=== PATIENT | female | born 1945 | race Caucasian/White ===

== ENCOUNTER 2020-12-05 06:43 | Outpatient (REF) | payer MEDICARE, SELFPAY ==
[2020-12-05 11:21] LABS: MANUAL DIFF FLAG NO
[2020-12-05 11:31] LABS: Basophils Percent Auto 0.6 % (0-2); Eosinophils Absolute Auto 0.2 X10*3/uL (0.0-0.4); Eosinophils Percent Auto 4.3 % (0-4); Hemoglobin 12.6 g/dl (12.0-16.0); Lymphocytes Absolute Auto 1.5 X10*3/uL (1.2-4.9); Lymphocytes Percent Auto 30.6 % (20-40); Mean Corpuscular HGB Conc 33.2 g/dl (31.0-35.0); Mean Corpuscular Hemoglobin 32.1 pg (27.0-33.0); Mean Corpuscular Volume 96.9 fL (80-98); Mean Platelet Volume 10.7 fL (9.4-12.3); Monocytes Absolute Auto 0.3 X10*3/uL (0.1-1.2); Monocytes Percent Auto 6.9 % (2-11); Neutrophils Absolute Auto 2.8 X10*3/uL (2.0-8.3); Neutrophils Percent Auto 57.6 % (45-73); Platelet Count 304 X10*3/uL (160-400); Red Blood Count 3.92 X10*6/uL (4.20-5.50); Red Cell Distribution Width 12.7 % (11.0-16.0); White Blood Count 4.9 X10*3/uL (4.8-10.8)
[2020-12-05 12:03] LABS: Alanine Aminotransferase 12 U/L (0-31); Albumin Level 4.3 g/dL (3.5-5.0); Alkaline Phosphatase 68 U/L (39-117); Anion Gap 11 (12-20); Aspartate Amino Transferase 18 U/L (5-31); Bilirubin Direct 0.2 mg/dL (0.0-0.5); Bilirubin Total 0.5 mg/dL (0.0-1.0); Blood Urea Nitrogen 15 mg/dL (9-16); Calcium 8.8 mg/dL (8.4-10.2); Carbon Dioxide 29 mmol/L (22-29); Chloride 106 mmol/L (96-108); Cholesterol 162 mg/dL; Estimated Glomerular Filt Rate > 60; Glucose Fasting 82 mg/dL (60-99); HDL Cholesterol 57 mg/dL; LDL Cholesterol Calculated 87 mg/dl; Potassium 4.5 mmol/L (3.3-5.1); Sodium 141 mmol/L (135-145); Total Protein 6.5 g/dL (6.5-8.0); Triglycerides 90 mg/dL
[2020-12-05 12:25] LABS: TSH reflex Free T4 0.49 uIU/mL (0.32-4.0)
== END 2020-12-05 06:44 | disposition home or self-care (01) ==
LOC: HO.HMGCLDS 06:43
PROVIDERS: PCP Internal Medicine; Visit Provider Internal Medicine
DX: E78.9 Disorder of lipoprotein metabolism, unspecified (principal); E03.8 Other specified hypothyroidism; E55.9 Vitamin D deficiency, unspecified; G47.9 Sleep disorder, unspecified
CPT/HCPCS: 36415; 80048; 80061; 80076; 84443; 85025

== ENCOUNTER 2021-06-15 07:24 | Outpatient (REF) | payer MEDICARE, SELFPAY ==
[2021-06-15 12:02] LABS: Alanine Aminotransferase 10 U/L (0-31); Albumin Level 4.1 g/dL (3.5-5.0); Alkaline Phosphatase 61 U/L (39-117); Anion Gap 14 (12-20); Aspartate Amino Transferase 19 U/L (5-31); Bilirubin Total 0.6 mg/dL (0.0-1.0); Blood Urea Nitrogen 11 mg/dL (9-16); Carbon Dioxide 26 mmol/L (22-29); Chloride 109 mmol/L (96-108); Cholesterol 148 mg/dL; Estimated Glomerular Filt Rate > 60; Glucose Fasting 83 mg/dL (60-99); HDL Cholesterol 62 mg/dL; LDL Cholesterol Calculated 75 mg/dl; Potassium 4.7 mmol/L (3.3-5.1); Sodium 144 mmol/L (135-145); Triglycerides 58 mg/dL
[2021-06-15 12:11] LABS: TSH reflex Free T4 0.36 uIU/mL (0.32-4.0)
== END 2021-06-15 07:25 | disposition home or self-care (01) ==
LOC: HO.HMGCLDS 07:24
PROVIDERS: PCP Internal Medicine; Visit Provider Internal Medicine
DX: E03.8 Other specified hypothyroidism (principal); E78.9 Disorder of lipoprotein metabolism, unspecified; G47.9 Sleep disorder, unspecified
CPT/HCPCS: 36415; 80053; 80061; 84443

== ENCOUNTER 2021-07-01 08:12 | Outpatient (REF) | payer MEDICARE, SELFPAY ==
--- NOTE | ~2021-07-01 | MM_ITS ---
EXAMINATION: MM SCREENING DIGITAL BREAST TOMOSYNTHESIS, BILATERAL CLINICAL INFORMATION: Screening. Asymptomatic. The lifetime risk of breast cancer based on the Tyrer-Cuzick Model is 2%. COMPARISON: Mammography: 08/08/2015 TECHNIQUE: Digital breast tomosynthesis is performed in both the craniocaudal and mediolateral oblique views along with computer-aided detection (CAD). Synthesized 2D images are generated from the tomosynthesis. FINDINGS: There are scattered areas of fibroglandular density (ACR BI-RADS breast composition Category b). There are no significant masses, abnormal calcifications, or other abnormalities. The axilla and skin contours are unremarkable. MM/MM tomosynthesis screening BI IMPRESSION: No mammographic evidence of malignancy. ASSESSMENT: BI-RADS 1: Negative RECOMMENDATION: Routine annual mammography screening. This patient's information was entered into a reminder system with a target due date for their next mammogram.
== END 2021-07-01 08:13 | disposition home or self-care (01) ==
LOC: HO.MAMMO 08:12
PROVIDERS: Visit Provider Internal Medicine
DX: Z12.31 Encounter for screening mammogram for malignant neoplasm of breast (principal)
CPT/HCPCS: 77063; 77067

== ENCOUNTER 2021-12-18 07:56 | Outpatient (REF) | payer MEDICARE, SELFPAY ==
[2021-12-18 11:23] LABS: MANUAL DIFF FLAG NO
[2021-12-18 11:35] LABS: Basophils Percent Auto 0.8 % (0-2); Eosinophils Absolute Auto 0.2 X10*3/uL (0.0-0.4); Eosinophils Percent Auto 4.7 % (0-4); Hematocrit 37.5 % (37.0-47.0); Hemoglobin 12.3 g/dl (12.0-16.0); Imm Gran Abs Auto 0.01 X10*3/uL (0.00-0.03); Imm Gran Pct Auto 0.2 % (0.0-0.4); Lymphocytes Absolute Auto 1.7 X10*3/uL (1.2-4.9); Mean Corpuscular HGB Conc 32.8 g/dl (31.0-35.0); Mean Corpuscular Volume 97.7 fL (80.0-98.0); Mean Platelet Volume 10.5 fL (9.4-12.3); Monocytes Absolute Auto 0.4 X10*3/uL (0.1-1.2); Monocytes Percent Auto 7.6 % (2-11); Neutrophils Absolute Auto 2.8 x10*3/uL (2.0-8.3); Neutrophils Percent Auto 53.7 % (45-73); Platelet Count 291 X10*3/uL (160-400); Red Blood Count 3.84 X10*6/uL (4.20-5.50); Red Cell Distribution Width 13.1 % (11.0-16.0); White Blood Count 5.1 X10*3/uL (4.8-10.8)
[2021-12-18 12:08] LABS: Alanine Aminotransferase 15 U/L (0-31); Albumin Level 4.2 g/dL (3.5-5.0); Alkaline Phosphatase 63 U/L (39-117); Anion Gap 13 (12-20); Aspartate Amino Transferase 19 U/L (5-31); Bilirubin Total 0.4 mg/dL (0.0-1.0); Blood Urea Nitrogen 18 mg/dL (9-16); Calcium 9.2 mg/dL (8.4-10.2); Carbon Dioxide 28 mmol/L (22-29); Chloride 106 mmol/L (96-108); Cholesterol 160 mg/dL; Estimated Glomerular Filt Rate 54; Glucose Fasting 84 mg/dL (60-99); HDL Cholesterol 61 mg/dL; LDL Cholesterol Calculated 81 mg/dl; Potassium 4.3 mmol/L (3.3-5.1); Sodium 143 mmol/L (135-145); Total Protein 6.3 g/dL (6.5-8.0); Triglycerides 92 mg/dL
[2021-12-18 12:10] LABS: TSH reflex Free T4 3.94 uIU/mL (0.32-4.0)
== END 2021-12-18 07:57 | disposition home or self-care (01) ==
LOC: HO.HMGCLDS 07:56
PROVIDERS: Visit Provider Internal Medicine
DX: E03.8 Other specified hypothyroidism (principal); E78.9 Disorder of lipoprotein metabolism, unspecified; G47.9 Sleep disorder, unspecified
CPT/HCPCS: 36415; 80053; 80061; 84443; 85025

== ENCOUNTER 2022-04-06 07:37 | Outpatient (REF) | payer MEDICARE, SELFPAY ==
[2022-04-06 12:36] LABS: Alanine Aminotransferase 12 U/L (0-31); Albumin Level 4.3 g/dL (3.5-5.0); Alkaline Phosphatase 65 U/L (39-117); Anion Gap 13 (12-20); Aspartate Amino Transferase 17 U/L (5-31); Bilirubin Total 0.5 mg/dL (0.0-1.0); Blood Urea Nitrogen 21 mg/dL (9-16); Calcium 8.8 mg/dL (8.4-10.2); Carbon Dioxide 26 mmol/L (22-29); Chloride 108 mmol/L (96-108); Estimated Glomerular Filt Rate > 60; Glucose Random 91 mg/dL (60-115); Potassium 4.6 mmol/L (3.3-5.1); Sodium 142 mmol/L (135-145); Total Protein 6.3 g/dL (6.5-8.0)
[2022-04-06 16:53] LABS: Appearance Urine CLEAR; Color Urine YELLOW; Glucose Urine UA NEG (NEG); Leukocyte Esterase Urine NEG (NEG); Nitrite Urine NEG (NEG); PH 5.5 (5.0-8.0); Urine Blood NEG (NEG); Urine Ketones NEG (NEG); Urine Protein NEG (NEG-TRACE)
== END 2022-04-06 07:38 | disposition home or self-care (01) ==
LOC: HO.HMGCLDS 07:37
PROVIDERS: PCP Internal Medicine; Visit Provider Internal Medicine
DX: E78.9 Disorder of lipoprotein metabolism, unspecified (principal); G47.9 Sleep disorder, unspecified; K21.9 Gastro-esophageal reflux disease without esophagitis; R94.4 Abnormal results of kidney function studies; R35.1 Nocturia; E03.8 Other specified hypothyroidism
CPT/HCPCS: 36415; 80053; 81003

== ENCOUNTER 2022-07-02 09:00 | Outpatient (REF) | payer MEDICARE, SELFPAY ==
--- NOTE | ~2022-07-02 | MM_ITS ---
EXAMINATION: MM SCREENING DIGITAL BREAST TOMOSYNTHESIS, BILATERAL CLINICAL INFORMATION: Screening. Asymptomatic. The lifetime risk of breast cancer based on the Tyrer-Cuzick Model is 2%. COMPARISON: Mammography: 07/01/2021, 08/08/2015 TECHNIQUE: Digital breast tomosynthesis is performed in both the craniocaudal and mediolateral oblique views along with computer-aided detection (CAD). Synthesized 2D images are generated from the tomosynthesis. FINDINGS: The breasts are almost entirely fatty (ACR BI-RADS breast composition Category a). There are no significant masses, abnormal calcifications, or other abnormalities. Background stromal markings are stable. No developing density or architectural abnormality. The axilla are unremarkable. MM/MM tomosynthesis screening BI IMPRESSION: No mammographic evidence of malignancy. ASSESSMENT: BI-RADS 1: Negative RECOMMENDATION: Routine annual mammography screening. This patient's information was entered into a reminder system with a target due date for their next mammogram.
== END 2022-07-02 09:01 | disposition home or self-care (01) ==
LOC: HO.MAMMO 09:00
PROVIDERS: PCP Internal Medicine; Visit Provider Internal Medicine
DX: Z12.31 Encounter for screening mammogram for malignant neoplasm of breast (principal)
CPT/HCPCS: 77063; 77067

== ENCOUNTER 2023-01-17 08:21 | Outpatient (REF) | payer MEDICARE, SELFPAY ==
--- NOTE | ~2023-01-17 | XR_ITS ---
EXAMINATION: XR LUMBOSACRAL SPINE CLINICAL INFORMATION: Anesthesia of skin COMPARISON: Previous x-ray October 2019 TECHNIQUE: Three views of the lumbosacral spine. FINDINGS: There is grade 1 anterior subluxation of L5 with respect to S1. This is similar to previous exam. Bone alignment is otherwise normal. Multilevel degenerative disc disease. Spondylosis at L1-L2. Multilevel lower lumbar spine facet arthritis. No fracture or dislocation. Atherosclerotic disease. Right hip replacement. 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 XR/XR lumbar spine 2-3V IMPRESSION: Stable grade 1 anterior subluxation of L5 with respect to S1. Multilevel degenerative changes.
[2023-01-17 11:27] LABS: MANUAL DIFF FLAG NO
[2023-01-17 11:44] LABS: Basophils Percent Auto 0.5 % (0-2); Eosinophils Absolute Auto 0.2 X10*3/uL (0.0-0.4); Eosinophils Percent Auto 3.8 % (0-4); Hematocrit 37.6 % (37.0-47.0); Hemoglobin 12.1 g/dl (12.0-16.0); Imm Gran Abs Auto 0.01 X10*3/uL (0.00-0.03); Imm Gran Pct Auto 0.2 % (0.0-0.4); Lymphocytes Absolute Auto 1.8 X10*3/uL (1.2-4.9); Lymphocytes Percent Auto 32.7 % (20-40); Mean Corpuscular HGB Conc 32.2 g/dl (31.0-35.0); Mean Corpuscular Volume 96.4 fL (80.0-98.0); Mean Platelet Volume 10.3 fL (9.4-12.3); Monocytes Absolute Auto 0.4 X10*3/uL (0.1-1.2); Monocytes Percent Auto 7.1 % (2-11); Neutrophils Percent Auto 55.7 % (45-73); Platelet Count 296 X10*3/uL (160-400); Red Cell Distribution Width 13.9 % (11.0-16.0); White Blood Count 5.5 X10*3/uL (4.8-10.8)
[2023-01-17 12:08] LABS: Alanine Aminotransferase 11 U/L (0-31); Albumin Level 4.2 g/dL (3.5-5.0); Alkaline Phosphatase 72 U/L (39-117); Anion Gap 10 (12-20); Aspartate Amino Transferase 19 U/L (5-31); Bilirubin Total 0.5 mg/dL (0.0-1.0); Blood Urea Nitrogen 18 mg/dL (9-16); Calcium 9.1 mg/dL (8.4-10.2); Carbon Dioxide 32 mmol/L (22-29); Chloride 107 mmol/L (96-108); Cholesterol 193 mg/dL; Estimated Glomerular Filt Rate > 60; Glucose Fasting 82 mg/dL (60-99); HDL Cholesterol 69 mg/dL; LDL Cholesterol Calculated 109 mg/dl; Potassium 4.7 mmol/L (3.3-5.1); Sodium 144 mmol/L (135-145); Total Protein 6.1 g/dL (6.5-8.0); Triglycerides 75 mg/dL
[2023-01-17 12:27] LABS: TSH reflex Free T4 3.46 uIU/mL (0.32-4.0)
== END 2023-01-17 08:22 | disposition home or self-care (01) ==
LOC: HO.HMGCX 08:21
PROVIDERS: PCP Internal Medicine; Visit Provider Internal Medicine
DX: R20.0 Anesthesia of skin (principal); R20.2 Paresthesia of skin; R29.898 Other symptoms and signs involving the musculoskeletal system; E78.9 Disorder of lipoprotein metabolism, unspecified; E03.8 Other specified hypothyroidism; G47.9 Sleep disorder, unspecified; K21.9 Gastro-esophageal reflux disease without esophagitis; F41.0 Panic disorder [episodic paroxysmal anxiety]
CPT/HCPCS: 36415; 72100; 80053; 80061; 84443; 85025

== ENCOUNTER 2023-04-19 09:11 | Outpatient (AMB) | payer MEDICARE, SELFPAY ==
--- NOTE | 2023-04-19 09:14 | MHC.PC.OV ---
Vital Signs 04/19/23 09:15 04/19/23 09:21 Height 5 ft 3 in Weight 163 lb 4 oz BMI 28.9 BP 120/58 L 118/68 Blood Pressure Location Rt brachial Rt brachial Position Sitting Sitting Pulse 76 Pulse Source Pulse Oximeter Pulse Oximetry (%) 99 Oxygen Delivery Method Room Air Intake Visit Reasons: 3m follow up Allergies fluoxetine Adverse Reaction (Severe, Verified 04/19/23 09:17) Agitated ancef Adverse Reaction (Uncoded 10/12/22 08:25) Anxiety Medication List - Last Reconciled 04/19/23 by Terra Becerra MD aspirin 81 mg PO DAILY gabapentin 100 mg PO BEDTIME levothyroxine 112 mcg PO DAILY lorazepam 0.5 mg PO DAILY PRN 30 days pantoprazole 40 mg PO DAILY pravastatin 20 mg PO BEDTIME Tobacco use date assessed: 04/19/23 Fall risk assessment: No Falls in past year Last assessed Fall Risk: 04/19/23 Dental Screening Dental Screen Date: 04/19/23 Did you have a dental visit in the last 12 months?: Yes Did you have a dental problem in the last 6 months where you did not have access to dental care?: No Was dental information given to patient?: No HPI 3m follow up HPI Details Patient is a 77-year-old female came in today for her regular follow-up appointment Patient had MRI of her spine ordered by a different provider in January which showed destructive lesions in her spinal cord We forward the report to her oncologist's she will be having a PET scan of this month with Oncology appointment on 06 of May. Patient have a history of lymphoma, she tells me that when she was treated for lymphoma she knew that it will come back. Currently struggling with anxiety patient have a history of panic disorder she is on lorazepam 0.5 mg daily however she likes to avoid it if possible. She tells me that at 1 point she was on lorazepam 2 mg twice a day in the past. Patient is aware of side effects like , this medication has a risk of being habit forming, slowing of relfexes, dizziness, as well as may cause memory problems She is also on pantoprazole 40 mg as needed for GERD. Continue levothyroxine 112 mcg for hypothyroidism And pravastatin 20 mg for lipid control Follow-up 3 months [facility] Medical History Abnormal colonoscopy Anxiety and depression Follicular lymphoma History of lymphoma Hx of Kuldeep thyroiditis Hypercholesteremia Family History Paternal Aunt Breast cancer Social History Housing: House Alcohol intake: never Patient Tobacco Use Status: Former Tobacco user (quit 7 years ) Tobacco use type: Cigarette Years Smoked: 25 years e-Cigarette/Vaping Use: Never Used Current occupational status: retired Cognitive needs: No Hearing needs: No Vision needs: Yes Questionnaire Thrive Questionnaire Date Thrive assessed: 01/11/23 AUDIT C Alcohol Use Questionnaire (AUDIT-C) 1. How often do you have a drink containing alcohol?: Never 3. How often do you have six or more drinks on one occasion?: Never Total Score: 0 Score Reviewed/Action Taken: Yes CAROL-7 AMB Questionnaire CAROL-7 Date CAROL - 7 assessed: 01/11/23 Source: Developed by Drs. Derick Blood, Denice Murillo, Heber Patino and colleagues, with an educational jeffrey from [employer]. Review of Systems Const Denies chills and Denies fever(s) ENT Denies epistaxis and Denies nasal discharge Card Denies chest pain Resp Denies chest congestion, Denies cough and Denies hemoptysis GI Denies diarrhea and Denies nausea Skin/Breast Denies rash Neuro Reports no additional complaints Psych Reports no additional complaints Endo Reports no additional complaints Physical exam (Primary Care) Vital Signs: Last Vital Signs Pulse 76 04/19/23 09:15 BP 118/68 04/19/23 09:21 Pulse Ox 99 04/19/23 09:15 Oxygen Delivery Method Room Air 04/19/23 09:15 Tobacco/Smoking Status: Tobacco use Status Tobacco use date assessed 04/19/23 04/19/23 09:18 Patient Tobacco Use Status Former Tobacco user (quit 7 04/19/23 09:18 years ) Tobacco use type Cigarette 04/19/23 09:18 e-Cigarette/Vaping Use Never Used 04/19/23 09:18 Thrive Assessment: Date of Thrive Assessment Date Thrive assessed 01/11/23 04/19/23 09:18 Const General: cooperative, comfortable and no acute distress Orientation/consciousness: patient oriented x3 HENMT Head: Yes normocephalic Eyes General: appearance normal, both eyes and all related structures Neck Neck: Yes supple Resp Effort & Inspection: normal respiratory effort, no cough and no stridor Cardio Rhythm: regular rhythm Heart sounds: S1 normal heart sound present and S2 normal heart sound present Skin General skin exam: turgor normal Neuro General: patient oriented x3, tone normal and moves all extremities Extrem Right lower extremity: no edema Left lower extremity: no edema Assessment and Plan Assessment & Plan (1) Anxiety, generalized: Comment: Patient is aware of side effects like , this medication has a risk of being habit forming, slowing of relfexes, dizziness, and its controlled in nature, will need 3 M visit Code(s): F41.1 - Generalized anxiety disorder (2) Other specified hypothyroidism: Code(s): E03.8 - Other specified hypothyroidism (3) Difficulty sleeping: Code(s): G47.9 - Sleep disorder, unspecified (4) Chronic GERD: Code(s): K21.9 - Gastro-esophageal reflux disease without esophagitis (5) Lipid disorder: Code(s): E78.9 - Disorder of lipoprotein metabolism, unspecified (6) Obsessive compulsive disorder: Code(s): F42.9 - Obsessive-compulsive disorder, unspecified (7) Panic disorder: Code(s): F41.0 - Panic disorder [episodic paroxysmal anxiety] (8) History of lymphoma: Code(s): Z85.79 - Personal history of other malignant neoplasms of lymphoid, hematopoietic and related tissues (9) Chronic lumbar pain: Code(s): M54.5 - Low back pain; G89.29 - Other chronic pain Plan Patient is a 77-year-old female came in today for her regular follow-up appointment Patient had MRI of her spine ordered by a different provider in January which showed destructive lesions in her spinal cord We forward the report to her oncologist's she will be having a PET scan of this month with Oncology appointment on 06 of May. Patient have a history of lymphoma, she tells me that when she was treated for lymphoma she knew that it will come back. Currently struggling with anxiety patient have a history of panic disorder she is on lorazepam 0.5 mg daily however she likes to avoid it if possible. She tells me that at 1 point she was on lorazepam 2 mg twice a day in the past. Patient is aware of side effects like , this medication has a risk of being habit forming, slowing of relfexes, dizziness, as well as may cause memory problems She is also on pantoprazole 40 mg as needed for GERD. Continue levothyroxine 112 mcg for hypothyroidism And pravastatin 20 mg for lipid control Follow-up 3 months Medications: Refilled lorazepam 0.5 mg PO DAILY 30 days PRN 30 tabs 2RF anxiety Coding Level of Care Code Est Pt Level 4 (07465) Diagnoses Anxiety, generalized F41.1 Other specified hypothyroidism E03.8 Difficulty sleeping G47.9 Chronic GERD K21.9 Lipid disorder E78.9 Obsessive compulsive disorder F42.9 Panic disorder F41.0 History of lymphoma Z85.79 Chronic lumbar pain M54.5; G89.29
[2023-04-19 09:15] VITALS: BP 120/58; PULSE 76; O2SAT 99; BMI 28.9
[2023-04-19 09:21] VITALS: BP 118/68
== END 2023-04-19 09:44 | disposition home or self-care (01) ==
PROVIDERS: Visit Provider Internal Medicine
DX: E03.8 Other specified hypothyroidism (principal); Z85.79 Personal history of other malignant neoplasms of lymphoid, hematopoietic and related tissues; K21.9 Gastro-esophageal reflux disease without esophagitis; F41.1 Generalized anxiety disorder; G47.9 Sleep disorder, unspecified; E78.9 Disorder of lipoprotein metabolism, unspecified; F42.9 Obsessive-compulsive disorder, unspecified; F41.0 Panic disorder [episodic paroxysmal anxiety]; M54.5 Low back pain; G89.29 Other chronic pain
CPT/HCPCS: 99214

== ENCOUNTER 2023-07-20 09:53 | Outpatient (AMB) | payer MEDICARE, SELFPAY ==
[2023-07-20 09:59] VITALS: BP 116/62; PULSE 70; O2SAT 94; BMI 28.9
--- NOTE | 2023-07-20 09:59 | A.OFFPC_ITS ---
Vital Signs 07/20/23 09:59 Height 5 ft 3 in Weight 163 lb 4 oz BMI 28.9 BP 116/62 Blood Pressure Location Rt brachial Position Sitting Pulse 70 Pulse Source Pulse Oximeter Pulse Oximetry (%) 94 Oxygen Delivery Method Room Air Intake Visit Reasons: 3 Month follow up Allergies fluoxetine Adverse Reaction (Severe, Verified 07/20/23 10:01) Agitated ancef Adverse Reaction (Uncoded 10/12/22 08:25) Anxiety Medication List - Last Reconciled 07/20/23 by Terra Becerra MD aspirin 81 mg PO DAILY gabapentin 100 mg PO BEDTIME levothyroxine 112 mcg PO DAILY lorazepam 0.5 mg PO DAILY PRN 30 days pantoprazole 40 mg PO DAILY pravastatin 20 mg PO BEDTIME Tobacco use date assessed: 07/20/23 Fall risk assessment: No Falls in past year Last assessed Fall Risk: 07/20/23 Dental Screening Dental Screen Date: 07/20/23 Did you have a dental visit in the last 12 months?: Yes Did you have a dental problem in the last 6 months where you did not have access to dental care?: No Was dental information given to patient?: Patient has dentist HPI 3 Month follow up HPI Details Patient is 78-year-old female with a 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 Douglas at [facility] in December for further evaluation. Patient says that she was also told in the past that she has carotid stenosis and she would like another ultrasound to re-evaluate As she does feel dizzy at times and then her anxiety kicks in. Patient also have panic disorder along with OCD currently taking lorazepam 0.5 mg as needed She is aware of side effects her family is aware of side effects as well, patient says that when she takes a medication she feels very normal and function well she would like to continue that. She is also on pantoprazole 40 mg as needed for GERD. I prescribed gabapentin 100 mg to be taken at night which will help patient sleep as well as well as neuropathy pain in her left leg. Continue levothyroxine 112 mcg for hypothyroidism And pravastatin 20 mg for lipid control Due to winter months patient would like to skip her next visit and will come back in January. [facility] Medical History History of lymphoma Abnormal colonoscopy Follicular lymphoma Anxiety and depression Hypercholesteremia Hx of Kuldeep thyroiditis Family History Paternal Aunt Breast cancer Social History Housing: House Alcohol intake: never Patient Tobacco Use Status: Former Tobacco user (quit 7 years ) Tobacco use type: Cigarette Years Smoked: 25 years e-Cigarette/Vaping Use: Never Used Current occupational status: retired Cognitive needs: No Hearing needs: No Vision needs: Yes Questionnaire PHQ-9 Over the last 2 weeks, how often have you been bothered by any of the following problems? 1. Little interest or pleasure in doing things: not at all 2. Feeling down, depressed, or hopeless: not at all 3. Trouble falling or staying asleep, or sleeping too much: nearly every day 4. Feeling tired or having little energy: several days 5. Poor appetite or overeating: several days 6. Feeling bad about yourself - or that you are a failure or have let yourself or your family down: several days 7. Trouble concentrating on things, such as reading the newspaper or watching television: several days 8. Moving or speaking so slowly that other people could have noticed. Or the opposite - being so fidgety or restless that you have been moving around a lot more than usual: not at all 9. Thoughts that you would be better off or of hurting yourself in some way: not at all Total score: 7 Depression Screening Interpretation: Negative Depression Screening Done: Yes 70986 - PHQ-9 Billing: Yes Source: Developed by Drs. Derick Blood, Denice Murillo, Heber Patino and colleagues, with an educational jeffrey from [employer]. Thrive Questionnaire Date Thrive assessed: 01/11/23 AUDIT C Alcohol Use Questionnaire (AUDIT-C) 1. How often do you have a drink containing alcohol?: Never 3. How often do you have six or more drinks on one occasion?: Never Total Score: 0 Score Reviewed/Action Taken: Yes CAROL-7 AMB Questionnaire CAROL-7 Date CAROL - 7 assessed: 01/11/23 Source: Developed by Drs. Derick Blood, Denice Murillo, Heber Patino and colleagues, with an educational jeffrey from [employer]. Review of Systems Const Denies chills and Denies fever(s) ENT Denies epistaxis and Denies nasal discharge Card Denies chest pain Resp Denies chest congestion, Denies cough and Denies hemoptysis GI Denies diarrhea and Denies nausea Skin/Breast Denies rash Neuro Reports no additional complaints Psych Reports no additional complaints Endo Reports no additional complaints Physical exam (Primary Care) Vital Signs: Last Vital Signs Pulse 70 07/20/23 09:59 BP 116/62 07/20/23 09:59 Pulse Ox 94 07/20/23 09:59 Oxygen Delivery Method Room Air 07/20/23 09:59 BMI result Body Mass Index 28.9 Tobacco/Smoking Status: Tobacco use Status Tobacco use date assessed 07/20/23 07/20/23 10:01 Patient Tobacco Use Status Former Tobacco user (quit 7 07/20/23 10:01 years ) Tobacco use type Cigarette 07/20/23 10:01 e-Cigarette/Vaping Use Never Used 07/20/23 10:01 PHQ-9: PHQ-9 Score PHQ-9: Total score 7 07/20/23 10:22 Depression Screening Interpretation: Negative Thrive Assessment: Date of Thrive Assessment Date Thrive assessed 01/11/23 07/20/23 10:01 Const General: cooperative, comfortable and no acute distress Orientation/consciousness: patient oriented x3 HENMT Head: Yes normocephalic Eyes General: appearance normal, both eyes and all related structures Neck Neck: Yes supple Resp Effort & Inspection: normal respiratory effort, no cough and no stridor Cardio Rhythm: regular rhythm Heart sounds: S1 normal heart sound present and S2 normal heart sound present Skin General skin exam: turgor normal Neuro General: patient oriented x3, tone normal and moves all extremities Extrem Right lower extremity: no edema Left lower extremity: no edema Assessment and Plan Assessment & Plan (1) Lipid disorder: Code(s): E78.9 - Disorder of lipoprotein metabolism, unspecified (2) Other specified hypothyroidism: Code(s): E03.8 - Other specified hypothyroidism (3) Difficulty sleeping: Code(s): G47.9 - Sleep disorder, unspecified (4) Chronic lumbar pain: Code(s): M54.5 - Low back pain; G89.29 - Other chronic pain Qualifiers: Back pain laterality: left Sciatica laterality: sciatica of left side Sciatica presence: with sciatica Qualified Code(s): M54.42 - Lumbago with sciatica, left side; G89.29 - Other chronic pain (5) Chronic GERD: Code(s): K21.9 - Gastro-esophageal reflux disease without esophagitis (6) Obsessive compulsive disorder: Code(s): F42.9 - Obsessive-compulsive disorder, unspecified Qualifiers: Obsessive-compulsive disorder type: mixed obsessional thoughts and acts Qualified Code(s): F42.2 - Mixed obsessional thoughts and acts (7) Follicular lymphoma: Code(s): C82.90 - Follicular lymphoma, unspecified, unspecified site Qualifiers: Follicular lymphoma type: other follicular type Lymphoma site: head Qualified Code(s): C82.81 - Other types of follicular lymphoma, lymph nodes of head, face, and neck (8) Panic disorder: Code(s): F41.0 - Panic disorder [episodic paroxysmal anxiety] (9) Neuropathy of left lower extremity: Code(s): G57.92 - Unspecified mononeuropathy of left lower limb (10) Carotid artery stenosis: Code(s): I65.29 - Occlusion and stenosis of unspecified carotid artery Qualifiers: Laterality: bilateral Qualified Code(s): I65.23 - Occlusion and st enosis of bilateral carotid arteries Plan Patient is 78-year-old female with a 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 Douglas at [facility] in December for further evaluation. Patient says that she was also told in the past that she has carotid stenosis and she would like another ultrasound to re-evaluate As she does feel dizzy at times and then her anxiety kicks in. Patient also have panic disorder along with OCD currently taking lorazepam 0.5 mg as needed She is aware of side effects her family is aware of side effects as well, patient says that when she takes a medication she feels very normal and function well she would like to continue that. She is also on pantoprazole 40 mg as needed for GERD. I prescribed gabapentin 100 mg to be taken at night which will help patient sleep as well as well as neuropathy pain in her left leg. Continue levothyroxine 112 mcg for hypothyroidism And pravastatin 20 mg for lipid control Due to winter months patient would like to skip her next visit and will come back in January. Orders: Orders Complete Blood Count Auto Diff Today C82.90 - Follicular lymphoma, unspecified, unspecified site, E03.8 - Other specified hypothyroidism, E78.9 - Disorder of lipoprotein metabolism, unspecified, F41.0 - Panic disorder [episodic paroxysmal anxiety], F42.9 - Obsessive-compulsive disorder, unspecified, G47.9 - Sleep disorder, unspecified, G89.29 - Other chronic pain, K21.9 - Gastro-esophageal reflux disease without esophagitis, M54.5 - Low back pain Comprehensive Met. Panel Today C82.90 - Follicular lymphoma, unspecified, unspecified site, E03.8 - Other specified hypothyroidism, E78.9 - Disorder of lipoprotein metabolism, unspecified, F41.0 - Panic disorder [episodic paroxysmal anxiety], F42.9 - Obsessive-compulsive disorder, unspecified, G47.9 - Sleep disorder, unspecified, G89.29 - Other chronic pain, K21.9 - Gastro-esophageal reflux disease without esophagitis, M54.5 - Low back pain LDL Cholesterol Direct Today C82.90 - Follicular lymphoma, unspecified, unspecified site, E03.8 - Other specified hypothyroidism, E78.9 - Disorder of lipoprotein metabolism, unspecified, F41.0 - Panic disorder [episodic paroxysmal anxiety], F42.9 - Obsessive-compulsive disorder, unspecified, G47.9 - Sleep disorder, unspecified, G89.29 - Other chronic pain, K21.9 - Gastro-esophageal reflux disease without esophagitis, M54.5 - Low back pain Vitamin D 25-OH (D2 and D3) Today C82.90 - Follicular lymphoma, unspecified, unspecified site, E03.8 - Other specified hypothyroidism, E78.9 - Disorder of lipoprotein metabolism, unspecified, F41.0 - Panic disorder [episodic paroxysmal anxiety], F42.9 - Obsessive-compulsive disorder, unspecified, G47.9 - Sleep disorder, unspecified, G89.29 - Other chronic pain, K21.9 - Gastro-esophageal reflux disease without esophagitis, M54.5 - Low back pain TSH reflex Free T4 Today C82.90 - Follicular lymphoma, unspecified, unspecified site, E03.8 - Other specified hypothyroidism, E78.9 - Disorder of lipoprotein metabolism, unspecified, F41.0 - Panic disorder [episodic paroxysmal anxiety], F42.9 - Obsessive-compulsive disorder, unspecified, G47.9 - Sleep disorder, unspecified, G89.29 - Other chronic pain, K21.9 - Gastro-esophageal reflux disease without esophagitis, M54.5 - Low back pain Vitamin B12 Today C82.90 - Follicular lymphoma, unspecified, unspecified site, E03.8 - Other specified hypothyroidism, E78.9 - Disorder of lipoprotein metabolism, unspecified, F41.0 - Panic disorder [episodic paroxysmal anxiety], F42.9 - Obsessive-compulsive disorder, unspecified, G47.9 - Sleep disorder, unspecified, G89.29 - Other chronic pain, K21.9 - Gastro-esophageal reflux disease without esophagitis, M54.5 - Low back pain US carotid duplex BI Today I65.29 - Occlusion and stenosis of unspecified carotid artery Medications: Refilled lorazepam 0.5 mg PO DAILY PRN 30 tabs 2RF anxiety 30 days Coding Level of Care Code Est Pt Level 4 (17554) Diagnoses Lipid disorder E78.9 Other specified hypothyroidism E03.8 Difficulty sleeping G47.9 Chronic left-sided low back pain with left-sided sciatica M54.42; G89.29 Back pain laterality: left Sciatica laterality: sciatica of left side Sciatica presence: with sciatica Chronic GERD K21.9 Mixed obsessional thoughts and acts F42.2 Obsessive-compulsive disorder type: mixed obsessional thoughts and acts 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 Follicular lymphoma type: other follicular type Lymphoma site: head Panic disorder F41.0 Neuropathy of left lower extremity G57.92 Bilateral carotid artery stenosis I65.23 Laterality: bilateral
== END 2023-07-20 10:22 | disposition home or self-care (01) ==
PROVIDERS: PCP Internal Medicine; Visit Provider Internal Medicine
DX: E78.9 Disorder of lipoprotein metabolism, unspecified (principal); E03.8 Other specified hypothyroidism; G47.9 Sleep disorder, unspecified; C82.81 Other types of follicular lymphoma, lymph nodes of head, face, and neck; M54.42 Lumbago with sciatica, left side; G89.29 Other chronic pain; K21.9 Gastro-esophageal reflux disease without esophagitis; F42.2 Mixed obsessional thoughts and acts; F41.0 Panic disorder [episodic paroxysmal anxiety]; G57.92 Unspecified mononeuropathy of left lower limb; I65.23 Occlusion and stenosis of bilateral carotid arteries
CPT/HCPCS: 99214

== ENCOUNTER 2023-07-20 10:25 | Outpatient (REF) | payer MEDICARE, SELFPAY ==
[2023-07-20 13:22] LABS: MANUAL DIFF FLAG NO
[2023-07-20 13:57] LABS: Basophils Percent Auto 0.7 % (0-2); Eosinophils Absolute Auto 0.1 X10*3/uL (0.0-0.4); Eosinophils Percent Auto 2.6 % (0-4); Hematocrit 36.2 % (37.0-47.0); Hemoglobin 11.9 g/dl (12.0-16.0); Lymphocytes Absolute Auto 1.8 X10*3/uL (1.2-4.9); Lymphocytes Percent Auto 32.8 % (20-40); Mean Corpuscular HGB Conc 32.9 g/dl (31.0-35.0); Mean Corpuscular Hemoglobin 31.4 pg (27.0-33.0); Mean Corpuscular Volume 95.5 fL (80.0-98.0); Mean Platelet Volume 10.6 fL (9.4-12.3); Monocytes Absolute Auto 0.3 X10*3/uL (0.1-1.2); Neutrophils Absolute Auto 3.2 x10*3/uL (2.0-8.3); Neutrophils Percent Auto 57.9 % (45-73); Platelet Count 285 X10*3/uL (160-400); Red Blood Count 3.79 X10*6/uL (4.20-5.50); Red Cell Distribution Width 12.8 % (11.0-16.0); White Blood Count 5.5 X10*3/uL (4.8-10.8)
[2023-07-20 14:30] LABS: Alanine Aminotransferase 12 U/L (0-31); Albumin Level 4.3 g/dL (3.5-5.0); Alkaline Phosphatase 65 U/L (39-117); Anion Gap 13 (12-20); Aspartate Amino Transferase 21 U/L (5-31); Bilirubin Total 0.6 mg/dL (0.0-1.0); Blood Urea Nitrogen 15 mg/dL (9-16); Carbon Dioxide 27 mmol/L (22-29); Chloride 103 mmol/L (96-108); Estimated Glomerular Filt Rate > 60; Glucose Random 86 mg/dL (60-115); Potassium 4.4 mmol/L (3.3-5.1); Sodium 139 mmol/L (135-145); Total Protein 6.9 g/dL (6.5-8.0); Vitamin B12 1063 pg/mL (200-900)
[2023-07-21 13:33] LABS: LDL Cholesterol Direct 84 mg/dL (<100)
[2023-07-24 14:27] LABS: Vitamin D 25-OH, D2 <4 ng/mL; Vitamin D 25-OH, D3 31 ng/mL; Vitamin D 25-OH, Total 31 ng/mL (30-100)
== END 2023-07-20 10:26 | disposition home or self-care (01) ==
LOC: HO.HMGCLDS 10:25
PROVIDERS: PCP Internal Medicine; Visit Provider Internal Medicine
DX: E78.9 Disorder of lipoprotein metabolism, unspecified (principal); E03.8 Other specified hypothyroidism; G47.9 Sleep disorder, unspecified; M54.50 Low back pain, unspecified; G89.29 Other chronic pain; K21.9 Gastro-esophageal reflux disease without esophagitis; C82.90 Follicular lymphoma, unspecified, unspecified site; F41.0 Panic disorder [episodic paroxysmal anxiety]; F42.9 Obsessive-compulsive disorder, unspecified
CPT/HCPCS: 36415; 80053; 82306; 82607; 83721; 84443; 85025

== ENCOUNTER 2023-08-05 09:48 | Outpatient (REF) | payer MEDICARE, SELFPAY ==
--- NOTE | ~2023-08-05 | US_ITS ---
EXAMINATION: US EXTRACRANIAL CAROTID DUPLEX, BILATERAL CLINICAL INFORMATION: Stenosis of the carotid arteries COMPARISON: Carotid duplex in 2008 TECHNIQUE: Real-time ultrasound and Doppler techniques (integrating B-mode 2-D vascular images, Doppler spectral analysis and color-flow Doppler imaging) were utilized to interrogate the extracranial carotid arteries, the vertebral arteries and proximal subclavian arteries bilaterally. The degree of stenosis is determined by criteria similar to NASCET. FINDINGS: Right Side: 1. There is mild atherosclerotic plaque seen in the bifurcation/proximal ICA region. 2. The common carotid artery PSV proximally is 79 cm/s and distally 56 cm/s. 3. The proximal internal carotid artery velocities are 64 cm/s systolic and 20 cm/s diastolic. 4. The proximal external carotid artery PSV is 75 cm/s. 5. The vertebral artery shows antegrade flow. 6. The subclavian artery waveforms are normal. Left Side: 1. There is mild atherosclerotic plaque seen in the bifurcation/proximal ICA region. 2. The common carotid artery PSV proximally is 80 cm/s and distally 60 cm/s. 3. The proximal internal carotid artery velocities are 111 cm/s systolic and 29 cm/s diastolic. 4. The proximal external carotid artery PSV is 90 cm/s. 5. The vertebral artery shows antegrade flow. 6. The subclavian artery waveforms are normal. US/US carotid duplex BI IMPRESSION: 1. RIGHT: Minimal, non-hemodynamically significant stenosis of the proximal right internal carotid artery corresponding to a 0-49% stenosis by velocity criteria. 2. LEFT: Minimal, non-hemodynamically significant stenosis of the proximal left internal carotid artery corresponding to a 0-49% stenosis by velocity criteria. 3. There is no change in the category severity of disease when compared to the previous study dated in 2007.
== END 2023-08-05 09:49 | disposition home or self-care (01) ==
LOC: HO.HMGCX 09:48
PROVIDERS: PCP Internal Medicine; Visit Provider Internal Medicine
DX: I65.23 Occlusion and stenosis of bilateral carotid arteries (principal)
CPT/HCPCS: 93880

== ENCOUNTER 2024-01-20 08:22 | Outpatient (AMB) | payer MEDICARE, SELFPAY ==
[2024-01-20 08:27] VITALS: BP 126/68; PULSE 62; O2SAT 99; BMI 29.4
--- NOTE | 2024-01-20 08:27 | A.OFFVIS_ITS ---
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 Allergies fluoxetine Adverse Reaction (Severe, Verified 01/20/24 08:28) Agitated ancef Adverse Reaction (Uncoded 10/12/22 08:25) Anxiety Medication List - Last Reconciled 01/20/24 by Terra Becerra MD aspirin 81 mg PO DAILY gabapentin 100 mg PO BEDTIME levothyroxine 112 mcg PO DAILY lorazepam 0.5 mg PO DAILY PRN 30 days pantoprazole 40 mg PO DAILY pravastatin 20 mg PO BEDTIME Do you need a note to return to daycare/school/sports/work: No HPI [facility] G0439 HPI Details Patient is 78-year-old female who suffers from OCD and severe anxiety panic disorder She is currently taking lorazepam 0.5 mg once a day as needed Patient says that when she takes a medication she feels normal and she can function take care of her home and garden But the days she do not take the medication she feels anxious dizzy and not able to finish her work Patient is requesting if I can increase the dose to b.i.d. as she is always afraid she is going to run out Blood pressure is stable Patient is taking thyroid medication for hypothyroidism she is due for labs GERD is stable with pantoprazole 40 mg And lipids are controlled with pravastatin 20 mg She has developed a frozen shoulder right, that is getting too painful she is requesting orthopedic referral She will return in 3 months for medication refill. HPI Comments History of Present Illness Details AWV Medical/social history reviewed Past medical history reviewed [place] of care / care team list updated Surgical/ hospitalization history reviewed Current medications including OTC and supplements reviewed Family history reviewed Tobacco controlled form updated Alcohol use form updated Illicit drug use in social history reviewed Current diagnosis of depression ?screening updated Appropriate PHQ 2/PHQ-9 completed . Vital signs reviewed Alcohol tobacco drug use reviewed and discussed . MMSE completed . ? Fall risk: ?Assessed Fall history: ?None Have you had any falls with injury in the past year?? No Have you had 2 or more falls in the past year?? No Fall risk assessment completed Home safety discussed with the patient Functional ability assessed and discussed and documented Activities of daily living reviewed and appropriate actions taken . HRA filled out by the patient and reviewed by provider and scanned . Appropriate written screening schedule established . Any health advise needed provided . Advance care planning discussed with the patient , necessary paperwork filled Examination IPPE/AWE: Balance intact Romberg FAILED Tandem walk FAILED walk-in turn FAILED rise from sit to stand FAILED . ?Hearing ?whisper test pass . Medication list reviewed, patient is stable on medications All other providers patient is seeing discussed and noted . [facility] Medical History History of lymphoma Abnormal colonoscopy Follicular lymphoma Anxiety and depression Hypercholesteremia Hx of Kuldeep thyroiditis Surgical History No pertinent past surgical history Family History Paternal Aunt Breast cancer Social History Housing: House Alcohol intake: never Patient Tobacco Use Status: Former Tobacco user (quit 7 years ) Tobacco use type: Cigarette Years Smoked: 25 years e-Cigarette/Vaping Use: Never Used Current occupational status: retired Cognitive needs: No Hearing needs: No Vision needs: Yes Questionnaire Medicare Wellness Checkup What is your age?: 78 or older What gender do you identify with?: female During the past 4 weeks, how much have you been bothered by emotional problems such as feeling anxious, depressed, irritable, sad or downhearted, and blue?: quite a bit During the past 4 weeks, has your physical & emotional health limited your social activities with family, friends, neighbors, or groups?: moderately During the past 4 weeks, how much bodily pain have you generally had?: moderate pain During the past 4 weeks, was someone available to help you if you needed & wanted help?: yes, as much as I wanted During the past 4 weeks, what was the hardest physical activity you could do for at least 2 minutes?: moderate Can you get to places out of walking distance without help? (For eg., can you travel alone on buses, taxis or drive your car?): Yes Can you go shopping for groceries or clothes without someone's help?: Yes Can you prepare your own meals?: Yes Can you do your housework without help?: Yes Because of any health problems, do you need the help of another person with your personal care needs such as eating, bathing, dressing or getting around the house?: No Can you handle your own money without help?: Yes During the past 4 weeks, how would you rate your health in general?: fair During the past 4 weeks how have things been going for you?: very well; could hardly better Are you having difficulties driving your car?: no Do you always fasten your seat belt when you are in a car?: yes, usually During past 4 weeks, have you been bothered by the following: never: Falling or dizzy when standing up, Sexual problems? (), Trouble eating well?, Teeth or denture problems?, Problems using the telephone? and Tiredness or fatigue? Have you fallen 2 or more times in the past year?: No Are you afraid of falling?: No Are you a smoker?: no During the past 4 weeks, how many drinks of wine, beer, or other alcoholic beverages did you have?: no alcohol at all Do you exercise for about 20 minutes 3 or more times a week?: no, I usually do not exercise this much Have you been given information to help with the following?: yes: Hazards in your house that might hurt you? and yes: Keeping track of your medications? How often do you have trouble taking medicines the way you have been told to take them?: I always take medicine as prescribed How confident are you that you can control & manage most of your health problems?: very confident What is your race?: White Mini Mental State Exam (MMSE) Orientation What is the (year) (season) (date) (day) (month)?: year, season, date, day and month Where are we (state) (county) (town or city) (hospital) (floor)?: state, county, town or city, hospital/clinic and floor Score Score: 10 Activity of Daily Living Bathing - sponge bath, tub bath or shower: receives no assistance (gets in/out by self, if usual bathing means Dressing - getting clothes from closets & drawers, including inner/outer garments & fasteners.: gets clothes & gets completely dressed without help Toileting - going to the 'toilet room' for urine/bowel elimination & cleaning self/arranging clothes: goes to toilet room, cleans self, arranges clothes without help Transfer: moves in & out of bed and chair without help (may use support object) Continence: controls urination/bowel movements completely by self Feeding: feeds self without help Total Score: 0 Information obtained from: patient Using telephone: independent Traveling: independent Shopping: independent Preparing meals: independent Housework: independent Taking medicine: independent Managing money: independent PHQ-9 Over the last 2 weeks, how often have you been bothered by any of the following problems? 1. Little interest or pleasure in doing things: not at all 2. Feeling down, depressed, or hopeless: several days 3. Trouble falling or staying asleep, or sleeping too much: more than half the days 4. Feeling tired or having little energy: several days 5. Poor appetite or overeating: not at all 6. Feeling bad about yourself - or that you are a failure or have let yourself or your family down: not at all 7. Trouble concentrating on things, such as reading the newspaper or watching television: several days 8. Moving or speaking so slowly that other people could have noticed. Or the opposite - being so fidgety or restless that you have been moving around a lot more than usual: several days 9. Thoughts that you would be better off or of hurting yourself in some way: not at all Total score: 6 Depression Screening Interpretation: Negative Depression Screening Done: Yes 58672 - PHQ-9 Billing: Yes Source: Developed by Drs. Derick Blood, Denice Murillo, Heber Patino and colleagues, with an educational jeffrey from [employer]. CAROL-7 AMB Questionnaire CAROL-7 Date CAROL - 7 assessed: 01/20/24 Feeling nervous, anxious, or on edge: 3 = Nearly every day Not being able to stop or control worryin = Nearly every day Worrying too much about different things: 3 = Nearly every day Trouble relaxin = Nearly every day Being so restless that it is hard to sit still: 2 = More than half the days Becoming easily annoyed or irritable: 2 = More than half the days Feeling afraid as if something awful might happen: 2 = More than half the days Total CAROL-7 score (0-4 normal; 5-9 mild; 10-14 moderate; 15-21 severe): 18 Source: Developed by Drs. Derick Blood, Denice Murillo, Heber Patino and colleagues, with an educational jeffrey from [employer]. CAROL-7 Assessment Billing CAROL-7 Assessment Tool: CAROL-7 Assessment 71874 Review of Systems Const Denies chills and Denies fever(s) ENT Denies epistaxis and Denies nasal discharge Card Denies chest pain Resp Denies chest congestion, Denies cough and Denies hemoptysis GI Denies diarrhea and Denies nausea Skin/Breast Denies rash Neuro Reports no additional complaints Psych Reports no additional complaints Endo Reports no additional complaints Physical Exam Vital Signs: Last Vital Signs Pulse 62 01/20/24 08:27 BP 126/68 01/20/24 08:27 Pulse Ox 99 01/20/24 08:27 Oxygen Delivery Method Room Air 01/20/24 08:27 BMI result Body Mass Index 29.4 Const General: cooperative, comfortable and no acute distress Orientation/consciousness: patient oriented x3 HEENT Head: Yes normocephalic Eyes General: appearance normal, both eyes and all related structures Neck Other: Supple Neck: Yes supple Resp Effort & Inspection: normal respiratory effort, no cough and no stridor Cardio Rhythm: regular rhythm Heart sounds: S1 normal heart sound present and S2 normal heart sound present Skin General skin exam: turgor normal Neuro Other: Motor sensory intact General: patient oriented x3, tone normal and moves all extremities Extrem Other: No lower extremity swelling. Right lower extremity: no edema Left lower extremity: no edema Psych Other: Normal effect, speech clear Assessment & Plan Assessment & Plan (1) Medicare annual wellness visit, subsequent: Code(s): Z00.00 - Encounter for general adult medical examination without abnormal findings (2) Frozen shoulder: Code(s): M75.00 - Adhesive capsulitis of unspecified shoulder Qualifiers: Laterality: right Qualified Code(s): M75.01 - Adhesive capsulitis of right shoulder (3) Difficulty sleeping: Code(s): G47.9 - Sleep disorder, unspecified (4) Lipid disorder: Code(s): E78.9 - Disorder of lipoprotein metabolism, unspecified (5) Other specified hypothyroidism: Code(s): E03.8 - Other specified hypothyroidism (6) Chronic GERD: Code(s): K21.9 - Gastro-esophageal reflux disease without esophagitis (7) Obsessive compulsive disorder: Code(s): F42.9 - Obsessive-compulsive disorder, unspecified Qualifiers: Obsessive-compulsive disorder type: mixed obsessional thoughts and acts Qualified Code(s): F42.2 - Mixed obsessional thoughts and acts (8) Anxiety, generalized: Comment: Patient is aware of side effects like , this medication has a risk of being habit forming, slowing of relfexes, dizziness, and its controlled in nature, will need 3 M visit Code(s): F41.1 - Generalized anxiety disorder (9) Panic disorder: Code(s): F41.0 - Panic disorder [episodic paroxysmal anxiety] (10) Numbness and tingling of left leg: Code(s): R20.0 - Anesthesia of skin; R20.2 - Paresthesia of skin (11) Follicular lymphoma: Code(s): C82.90 - Follicular lymphoma, unspecified, unspecified site Qualifiers: Follicular lymphoma type: other follicular type Lymphoma site: head Qualified Code(s): C82.81 - Other types of follicular lymphoma, lymph nodes of head, face, and neck Plan Patient is 78-year-old female who suffers from OCD and severe anxiety panic disorder She is currently taking lorazepam 0.5 mg once a day as needed Patient says that when she takes a medication she feels normal and she can function take care of her home and garden But the days she do not take the medication she feels anxious dizzy and not able to finish her work Patient is requesting if I can increase the dose to b.i.d. as she is always afraid she is going to run out Blood pressure is stable Patient is taking thyroid medication for hypothyroidism she is due for labs GERD is stable with pantoprazole 40 mg And lipids are controlled with pravastatin 20 mg She has developed a frozen shoulder right, that is getting too painful she is requesting orthopedic referral She will return in 3 months for medication refill. Orders: Orders Complete Blood Count Auto Diff Today E03.8 - Other specified hypothyroidism, E78.9 - Disorder of lipoprotein metabolism, unspecified, F41.0 - Panic disorder [episodic paroxysmal anxiety], F41.1 - Generalized anxiety disorder, F42.2 - Mixed obsessional thoughts and acts, G47.9 - Sleep disorder, unspecified, K21.9 - Gastro-esophageal reflux disease without esophagitis, R20.0 - Anesthesia of skin, R20.2 - Paresthesia of skin, R94.4 - Abnormal results of kidney function studies Comprehensive Met. Panel Today E03.8 - Other specified hypothyroidism, E78.9 - Disorder of lipoprotein metabolism, unspecified, F41.0 - Panic disorder [episodic paroxysmal anxiety], F41.1 - Generalized anxiety disorder, F42.2 - Mixed obsessional thoughts and acts, G47.9 - Sleep disorder, unspecified, K21.9 - Gastro-esophageal reflux disease without esophagitis, R20.0 - Anesthesia of skin, R20.2 - Paresthesia of skin, R94.4 - Abnormal results of kidney function studies LDL Cholesterol Direct Today E03.8 - Other specified hypothyroidism, E78.9 - Disorder of lipoprotein metabolism, unspecified, F41.0 - Panic disorder [episodic paroxysmal anxiety], F41.1 - Generalized anxiety disorder, F42.2 - Mixed obsessional thoughts and acts, G47.9 - Sleep disorder, unspecified, K21.9 - Gastro-esophageal reflux disease without esophagitis, R20.0 - Anesthesia of skin, R20.2 - Paresthesia of skin, R94.4 - Abnormal results of kidney function studies TSH reflex Free T4 Today E03.8 - Other specified hypothyroidism, E78.9 - Disorder of lipoprotein metabolism, unspecified, F41.0 - Panic disorder [episodic paroxysmal anxiety], F41.1 - Generalized anxiety disorder, F42.2 - Mix ed obsessional thoughts and acts, G47.9 - Sleep disorder, unspecified, K21.9 - Gastro-esophageal reflux disease without esophagitis, R20.0 - Anesthesia of skin, R20.2 - Paresthesia of skin, R94.4 - Abnormal results of kidney function studies Vitamin D 25-OH (D2 and D3) Today E03.8 - Other specified hypothyroidism, E78.9 - Disorder of lipoprotein metabolism, unspecified, F41.0 - Panic disorder [episodic paroxysmal anxiety], F41.1 - Generalized anxiety disorder, F42.2 - Mixed obsessional thoughts and acts, G47.9 - Sleep disorder, unspecified, K21.9 - Gastro-esophageal reflux disease without esophagitis, R20.0 - Anesthesia of skin, R20.2 - Paresthesia of skin, R94.4 - Abnormal results of kidney function studies Vitamin B12 Today E03.8 - Other specified hypothyroidism, E78.9 - Disorder of lipoprotein metabolism, unspecified, F41.0 - Panic disorder [episodic paroxysmal anxiety], F41.1 - Generalized anxiety disorder, F42.2 - Mixed obsessional thoughts and acts, G47.9 - Sleep disorder, unspecified, K21.9 - Gastro- esophageal reflux disease without esophagitis, R20.0 - Anesthesia of skin, R20.2 - Paresthesia of skin, R94.4 - Abnormal results of kidney function studies Referrals Orthopedics Referral M75.01 - Adhesive capsulitis of right shoulder Medications: Changed From lorazepam 0.5 mg PO DAILY 30 days PRN 30 tabs 2RF anxiety To lorazepam 0.5 mg PO BID PRN 60 tabs 2RF anxiety 30 days Quality Reporting (2019) Depression/Bipolar (159/160/161/177) PHQ-9: Total score: 6 Coding Level of Care Code Medicare Subsequent (G0439) Est Pt Level 4 (43470) Diagnoses Medicare annual wellness visit, subsequent Z00.00 Adhesive capsulitis of right shoulder M75.01 Laterality: right Difficulty sleeping G47.9 Lipid disorder E78.9 Other specified hypothyroidism E03.8 Chronic GERD K21.9 Mixed obsessional thoughts and acts F42.2 Obsessive-compulsive disorder type: mixed obsessional thoughts and acts Anxiety, generalized F41.1 Panic disorder F41.0 Numbness and tingling of left leg R20.0; R20.2 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 Follicular lymphoma type: other follicular type Lymphoma site: head CPT Codes Advance Care Planning - Time spent: 1-15 minutes, not on file ([id number]) Additional Codes CAROL-7 Assessment Billing - CAROL-7 Assessment Tool: CAROL-7 Assessment 45600 ([id number]) Advance Care Planning Advance Care Planning discussion: Completed/Scanned Forms completed: MOLST Time spent: 1-15 minutes, not on file Actual minutes spent: 10
--- NOTE | 2024-01-20 08:27 | A.OFFPC_ITS ---
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 Welfare Required: No Allergies fluoxetine Adverse Reaction (Severe, Verified 07/20/23 10:01) Agitated ancef Adverse Reaction (Uncoded 10/12/22 08:25) Anxiety Tobacco use date assessed: 07/20/23 Dental Screening Dental Screen Date: 07/20/23 [facility] Medical History History of lymphoma Abnormal colonoscopy Follicular lymphoma Anxiety and depression Hypercholesteremia Hx of Kuldeep thyroiditis Family History Paternal Aunt Breast cancer Social History Housing: House Alcohol intake: never Patient Tobacco Use Status: Former Tobacco user (quit 7 years ) Tobacco use type: Cigarette Years Smoked: 25 years e-Cigarette/Vaping Use: Never Used Current occupational status: retired Cognitive needs: No Hearing needs: No Vision needs: Yes Questionnaire Thrive Questionnaire Date Thrive assessed: 01/11/23 CAROL-7 AMB Questionnaire CAROL-7 Date CAROL - 7 assessed: 01/11/23 Source: Developed by Drs. Derick Blood, Denice Murillo, Heber Patino and colleagues, with an educational jeffrey from [employer]. Physical exam (Primary Care) Tobacco/Smoking Status: Tobacco use Status Tobacco use date assessed 07/20/23 07/20/23 10:01 Patient Tobacco Use Status Former Tobacco user 07/20/23 10:01 Tobacco use type Cigarette 07/20/23 10:01 e-Cigarette/Vaping Use Never Used 07/20/23 10:01 Thrive Assessment: Date of Thrive Assessment Date Thrive assessed 01/11/23 07/20/23 10:01 Coding
== END 2024-01-20 09:04 | disposition home or self-care (01) ==
PROVIDERS: PCP Internal Medicine; Visit Provider Internal Medicine
DX: Z00.00 Encounter for general adult medical examination without abnormal findings (principal); M75.01 Adhesive capsulitis of right shoulder; C82.81 Other types of follicular lymphoma, lymph nodes of head, face, and neck; G47.9 Sleep disorder, unspecified; E78.9 Disorder of lipoprotein metabolism, unspecified; E03.8 Other specified hypothyroidism; K21.9 Gastro-esophageal reflux disease without esophagitis; F42.2 Mixed obsessional thoughts and acts; F41.1 Generalized anxiety disorder; F41.0 Panic disorder [episodic paroxysmal anxiety]; R20.0 Anesthesia of skin; R20.2 Paresthesia of skin
CPT/HCPCS: 1124F; G0439

== ENCOUNTER 2024-01-20 09:04 | Outpatient (REF) | payer MEDICARE, SELFPAY ==
[2024-01-20 10:25] LABS: MANUAL DIFF FLAG NO
[2024-01-20 10:52] LABS: Basophils Percent Auto 0.8 % (0-2); Eosinophils Absolute Auto 0.2 X10*3/uL (0.0-0.4); Eosinophils Percent Auto 3.9 % (0-4); Hematocrit 37.3 % (37.0-47.0); Hemoglobin 12.2 g/dl (12.0-16.0); Imm Gran Abs Auto 0.01 X10*3/uL (0.00-0.03); Imm Gran Pct Auto 0.2 % (0.0-0.4); Lymphocytes Absolute Auto 1.3 X10*3/uL (1.2-4.9); Mean Corpuscular HGB Conc 32.7 g/dl (31.0-35.0); Mean Corpuscular Hemoglobin 31.9 pg (27.0-33.0); Mean Corpuscular Volume 97.4 fL (80.0-98.0); Mean Platelet Volume 10.3 fL (9.4-12.3); Monocytes Absolute Auto 0.4 X10*3/uL (0.1-1.2); Neutrophils Absolute Auto 3.3 x10*3/uL (2.0-8.3); Neutrophils Percent Auto 63.1 % (45-73); Platelet Count 289 X10*3/uL (160-400); Red Blood Count 3.83 X10*6/uL (4.20-5.50); Red Cell Distribution Width 13.2 % (11.0-16.0); White Blood Count 5.2 X10*3/uL (4.8-10.8)
[2024-01-20 11:07] LABS: Alanine Aminotransferase 15 U/L (0-31); Albumin Level 4.4 g/dL (3.5-5.0); Alkaline Phosphatase 69 U/L (39-117); Anion Gap 12 (12-20); Aspartate Amino Transferase 24 U/L (5-31); Bilirubin Total 0.4 mg/dL (0.0-1.0); Blood Urea Nitrogen 14 mg/dL (9-16); Calcium 9.5 mg/dL (8.4-10.2); Carbon Dioxide 28 mmol/L (22-29); Chloride 107 mmol/L (96-108); Estimated Glomerular Filt Rate > 60; Glucose Random 94 mg/dL (60-115); Potassium 4.2 mmol/L (3.3-5.1); Sodium 143 mmol/L (135-145); Total Protein 6.8 g/dL (6.5-8.0)
[2024-01-20 11:30] LABS: TSH reflex Free T4 0.79 uIU/mL (0.32-4.0)
[2024-01-21 17:03] LABS: LDL Cholesterol Direct 65 mg/dL (<100)
[2024-01-22 00:01] LABS: Vitamin B12 1233 pg/mL (200-900)
[2024-01-24 14:09] LABS: Vitamin D 25-OH, D2 <4 ng/mL; Vitamin D 25-OH, D3 35 ng/mL; Vitamin D 25-OH, Total 35 ng/mL (30-100)
== END 2024-01-20 09:05 | disposition home or self-care (01) ==
LOC: HO.HMGCX 09:04
PROVIDERS: PCP Internal Medicine; Visit Provider Internal Medicine
DX: E03.8 Other specified hypothyroidism (principal); E78.9 Disorder of lipoprotein metabolism, unspecified; G47.9 Sleep disorder, unspecified; R94.4 Abnormal results of kidney function studies; K21.9 Gastro-esophageal reflux disease without esophagitis; F42.2 Mixed obsessional thoughts and acts; F41.1 Generalized anxiety disorder; F41.0 Panic disorder [episodic paroxysmal anxiety]; R20.0 Anesthesia of skin; R20.2 Paresthesia of skin
CPT/HCPCS: 36415; 80053; 82306; 82607; 83721; 84443; 85025

== ENCOUNTER 2024-02-01 07:46 | Outpatient (AMB) | payer MEDICARE, SELFPAY ==
[2024-02-01 07:51] VITALS: BMI 29.4
--- NOTE | 2024-02-01 07:51 | A.OFFVIS_ITS ---
Vital Signs 02/01/24 07:51 Height 5 ft 3 in Weight 166 lb BMI 29.4 Intake Visit Reasons: Adhesive capsulitis of right shoulder Intake Note: Gabrielle is a 78 year old Right hand dominate female who presents with Right shoulder pain, stiffness an loss of ROM. Patient states it has been going on for about 3 months with the pain at a 3 on the 1-10 pain scale and is using advil, tylenol and home physical therapy for the pain with no relief. She denies injury, injections and surgery Allergies fluoxetine Adverse Reaction (Severe, Verified 02/01/24 08:11) Agitated ancef Adverse Reaction (Uncoded 10/12/22 08:25) Anxiety Medication List - Last Reconciled 02/02/24 by Chadwick Benjamin MD aspirin 81 mg PO DAILY gabapentin 100 mg PO BEDTIME levothyroxine 112 mcg PO DAILY lorazepam 0.5 mg PO BID PRN 30 days pantoprazole 40 mg PO DAILY pravastatin 20 mg PO BEDTIME [facility] Medical History (Updated 01/31/24 @ 09:39 by Chadwick Benjamin MD) History of lymphoma Abnormal colonoscopy Follicular lymphoma Anxiety and depression Hypercholesteremia Hx of Kuldeep thyroiditis Surgical History (Updated 02/01/24 @ 08:13 by Rosalinda Rausch CMA) Hx of right knee surgery History of right hip replacement No pertinent past surgical history Family History Paternal Aunt Breast cancer Social History (Updated 02/01/24 @ 08:13 by Rosalinda Rausch CMA) Housing: House Alcohol intake: never Patient Tobacco Use Status: Former Tobacco user (quit 7 years ) Tobacco use type: Cigarette Years Smoked: 25 years e-Cigarette/Vaping Use: Never Used Current occupational status: retired Current occupation: Right hand dominate Cognitive needs: No Hearing needs: No Vision needs: Yes Physical Exam Vital Signs: BMI result Body Mass Index 29.4 Const Other: Well-nourished well-developed very friendly female awake alert and oriented x3 in no acute distress Extrem Other: Bilateral upper extremity examination shows good capillary refill, no skin lesions noted, normal sensation light touch Right shoulder examination shows decreased range of motion when compared to her left shoulder, mild crepitus with range of motion, pain with range of motion, no instability Office Procedures Joint Injection/Drain Joint Injection/Drain Primary Site: right shoulder Prep: site was prepped using aseptic technique Injected: 40 mg of, DepoMedrol and 1% plain lidocaine Procedure: The patient tolerated the procedure well Coding 99217 - Large joint Procedure code (CPT) selection complete Results Reviewed Results Reviewed: X-rays of the patient's right shoulder show a high-riding humeral head as well as glenohumeral joint degenerative changes consistent with chronic rotator cuff tear arthropathy Assessment & Plan Assessment & Plan (1) Right shoulder pain: Code(s): M25.511 - Pain in right shoulder Category: Medical Plan Ms. Olivares presents with right shoulder pain due to chronic rotator cuff tear arthropathy. I had a lengthy discussion with the patient regarding the treatment options. The patient wishes to hold off on total shoulder replacement surgery for as long as possible. I agree with this plan. The risks and benefits of a right shoulder cortisone injection were discussed at length with the patient. The patient wished to proceed. She tolerated the injection well. She will continue with her home stretching program. She will follow up with me on an as-needed basis should her symptoms not plateau at an unacceptable level over the next few months. Feel free to call me at any time should questions regarding her orthopedic management arise. Thank you very much for asking me to see this very friendly patient. I spent 20 minutes in reviewing the patient's records and imaging studies, seeing the patient and documenting in the medical record. Orders: Orders AMB Joint Injection/Aspiration 02/01/24 M25.511 - Pain in right shoulder XR shoulder RT min 2V 02/01/24 M25.511 - Pain in right shoulder Coding Level of Care Code New Pt Level 2 (00490) Diagnoses Right shoulder pain M25.511 CPT Codes Coding - 78285 Large joint: 23349 - Large joint ([id number])
== END 2024-02-01 08:31 | disposition home or self-care (01) ==
PROVIDERS: PCP Internal Medicine; Visit Provider Orthopaedic Surgery
DX: M25.511 Pain in right shoulder (principal)
CPT/HCPCS: 20610; 99204

== ENCOUNTER 2024-02-01 09:34 | Outpatient (REF) | payer MEDICARE, SELFPAY ==
--- NOTE | ~2024-02-01 | XR_ITS ---
EXAMINATION: XR SHOULDER, RIGHT CLINICAL INFORMATION: Pain in right shoulder. COMPARISON: None available. TECHNIQUE: Two views of the right shoulder. FINDINGS: The bones are diffusely demineralized. Degenerative changes in the imaged upper thoracic spine. Moderate osteoarthritic changes with joint space narrowing in the acromioclavicular joint. Narrowing of the subacromial space with subchondral sclerosis and hypertrophic change. Hypertrophic change along the inferior aspect of the glenohumeral joint. XR/XR shoulder RT min 2V IMPRESSION: Advanced degenerative changes.
== END 2024-02-01 09:35 | disposition home or self-care (01) ==
LOC: HO.HOSX 09:34
PROVIDERS: Visit Provider Orthopaedic Surgery
DX: M25.511 Pain in right shoulder (principal)
CPT/HCPCS: 20610; 73030; 99202; J1010

== ENCOUNTER 2024-04-03 08:47 | Outpatient (AMB) | payer MEDICARE, SELFPAY ==
--- NOTE | 2024-04-03 08:48 | A.OFFPC_ITS ---
Vital Signs 3 04/03/24 08:50 Height 5 ft 3 in Weight 163 lb 6 oz BMI 28.9 BP 122/68 Blood Pressure Location Rt brachial Position Sitting Pulse 77 Pulse Source Pulse Oximeter Pulse Oximetry (%) 96 Oxygen Delivery Method Room Air Intake Visit Reasons: 3M F/U Allergies fluoxetine Adverse Reaction (Severe, Verified 04/03/24 08:54) Agitated ancef Adverse Reaction (Uncoded 10/12/22 08:25) Anxiety Medication List - Last Reconciled 04/03/24 by Terra Becerra MD aspirin 81 mg PO DAILY gabapentin 100 mg PO BEDTIME levothyroxine 112 mcg PO DAILY lorazepam 0.5 mg PO BID PRN 30 days omeprazole 20 mg PO DAILY pravastatin 20 mg PO BEDTIME Tobacco use date assessed: 04/03/24 Fall risk assessment: No Falls in past year Last assessed Fall Risk: 04/03/24 Dental Screening Dental Screen Date: 04/03/24 Did you have a dental visit in the last 12 months?: Yes Did you have a dental problem in the last 6 months where you did not have access to dental care?: No Was dental information given to patient?: Patient has dentist HPI 3M F/U 2 HPI0 Details Patient is 78-year-old female with a history of follicular lymphoma which has been in remission until recently Labs were done in January of this year, vitamin B12 level is still high Patient have a history of follicular lymphoma which was in remission until recently MRI showed lesions in spine so patient ended up having PET scan through her oncologist which showed intense action around her tongue mostly left side more than right She under care of Dr. Douglas at [facility] Continued to have pain left hip off and on but in spite of that she is very active and does gardening Patient also have panic disorder along with OCD currently taking lorazepam 0.5 mg b.i.d. She is aware of side effects her family is aware of side effects as well, patient says that when she takes a medication she feels very normal and function well she would like to continue that. It seems as if she has stopped taking pantoprazole because she is having epigastric discomfort I have sent omeprazole instead Frozen shoulder right, she was seen by Orthopedic and was given cortisone injection which did improve the pain however range of motion is still very limited I prescribed gabapentin 100 mg to be taken at night which will help patient sleep as well as well as neuropathy pain in her left leg. Continue levothyroxine 112 mcg for hypothyroidism And pravastatin 20 mg for lipid control Follow-up 3 months [facility] Medical History History of lymphoma Abnormal colonoscopy Follicular lymphoma Anxiety and depression Hypercholesteremia Hx of Kuldeep thyroiditis Surgical History Hx of right knee surgery History of right hip replacement No pertinent past surgical history Family History Paternal Aunt Breast cancer Social History Housing: House Alcohol intake: never Patient Tobacco Use Status: Former Tobacco user (quit 7 years ) Tobacco use type: Cigarette Years Smoked: 25 years e-Cigarette/Vaping Use: Never Used service: No Current occupational status: retired Current occupation: Right hand dominate Cognitive needs: No Hearing needs: No Vision needs: Yes Questionnaire PHQ-9 Over the last 2 weeks, how often have you been bothered by any of the following problems? 1. Little interest or pleasure in doing things: not at all 2. Feeling down, depressed, or hopeless: several days 3. Trouble falling or staying asleep, or sleeping too much: several days 4. Feeling tired or having little energy: several days 5. Poor appetite or overeating: not at all 6. Feeling bad about yourself - or that you are a failure or have let yourself or your family down: not at all 7. Trouble concentrating on things, such as reading the newspaper or watching television: several days 8. Moving or speaking so slowly that other people could have noticed. Or the opposite - being so fidgety or restless that you have been moving around a lot more than usual: several days 9. Thoughts that you would be better off or of hurting yourself in some way: not at all Total score: 5 Depression Screening Interpretation: Negative Depression Screening Done: Yes 86655 - PHQ-9 Billing: Yes Source: Developed by Drs. Derick Blood, Denice Murillo, Heber Patino and colleagues, with an educational jeffrey from [employer]. Thrive Questionnaire Date Thrive assessed: 04/03/24 I am a: Patient What is your living situation today?: I have a steady place to live Within the past 12 months, did the food you bought not last and you didn't have the money to get more?: Never true Within the past 12 months, did you worry whether your food would run out before you got money to buy more?: Never true Do you have trouble paying for medicines?: No Do you have trouble getting transportation to medical appointments?: No Do you have trouble paying your heating and electricity bill?: No Do you have trouble taking care of your child, family member or friend?: No Do you have trouble with day-to-day activities such as bathing, preparing meals, shopping, managing finances, etc.?: No Are you currently unemployed and looking for a job?: No Are you interested in more education?: No Please select the resources that you would like help with: None Currently or been in a relationship where the following occur: No concerns reported THRIVE Score: 0 AUDIT C Alcohol Use Questionnaire (AUDIT-C) 1. How often do you have a drink containing alcohol?: Never 3. How often do you have six or more drinks on one occasion?: Never Total Score: 0 Score Reviewed/Action Taken: Yes CAROL-7 AMB Questionnaire CAROL-7 Date CAROL - 7 assessed: 04/03/24 Source: Developed by Drs. Derick Blood, Denice Murillo, Heber Patino and colleagues, with an educational jeffrey from [employer]. Review of Systems Const Denies chills and Denies fever(s) ENT Denies epistaxis and Denies nasal discharge Card Denies chest pain Resp Denies chest congestion, Denies cough and Denies hemoptysis GI Denies diarrhea and Denies nausea Skin/Breast Denies rash Neuro Reports no additional complaints Psych Reports no additional complaints Endo Reports no additional complaints Physical exam (Primary Care) Vital Signs: Last Vital Signs Pulse 77 04/03/24 08:50 BP 122/68 04/03/24 08:50 Pulse Ox 96 04/03/24 08:50 Oxygen Delivery Method Room Air 04/03/24 08:50 BMI result Body Mass Index 28.9 Tobacco/Smoking Status: Tobacco use Status Tobacco use date assessed 04/03/24 04/03/24 08:54 Patient Tobacco Use Status Former Tobacco user (quit 7 04/03/24 08:48 years ) Tobacco use type Cigarette 04/03/24 08:48 e-Cigarette/Vaping Use Never Used 04/03/24 08:48 PHQ-9: PHQ-9 Score PHQ-9: Total score 5 04/03/24 10:48 Depression Screening Interpretation: Negative Thrive Assessment: Date of Thrive Assessment Date Thrive assessed 04/03/24 04/03/24 08:54 Currently or been in a relationship where the following occur: No concerns reported Const General: cooperative, comfortable and no acute distress Orientation/consciousness: patient oriented x3 HENMT Head: Yes normocephalic Eyes General: appearance normal, both eyes and all related structures Neck Neck: Yes supple Resp Effort & Inspection: normal respiratory effort, no cough and no stridor Cardio Rhythm: regular rhythm Heart sounds: S1 normal heart sound present and S2 normal heart sound present Skin General skin exam: turgor normal Neuro General: patient oriented x3, tone normal and moves all extremities Extrem Shoulder/upper arm images: 2 1. Limited range of motion secondary to frozen shoulder Right lower extremity: no edema Left lower extremity: no edema Assessment and Plan Assessment & Plan (1) Lipid disorder: Code(s): E78.9 - Disorder of lipoprotein metabolism, unspecified (2) Other specified hypothyroidism: Code(s): E03.8 - Other specified hypothyroidism (3) Difficulty sleeping: Code(s): G47.9 - Sleep disorder, unspecified (4) Chronic lumbar pain: Code(s): M54.5 - Low back pain; G89.29 - Other chronic pain Qualifiers: Back pain laterality: left Sciatica laterality: sciatica of left side Sciatica presence: with sciatica Qualified Code(s): M54.42 - Lumbago with sciatica, left side; G89.29 - Other chronic pain (5) Chronic GERD: Code(s): K21.9 - Gastro-esophageal reflux disease without esophagitis (6) Obsessive compulsive disorder: Code(s): F42.9 - Obsessive-compulsive disorder, unspecified Qualifiers: Obsessive-compulsive disorder type: mixed obsessional thoughts and acts Qualified Code(s): F42.2 - Mixed obsessional thoughts and acts (7) Follicular lymphoma: Code(s): C82.90 - Follicular lymphoma, unspecified, unspecified site Qualifiers: Follicular lymphoma type: other follicular type Lymphoma site: head Q ualified Code(s): C82.81 - Other types of follicular lymphoma, lymph nodes of head, face, and neck (8) Panic disorder: Code(s): F41.0 - Panic disorder [episodic paroxysmal anxiety] (9) Neuropathy of left lower extremity: Code(s): G57.92 - Unspecified mononeuropathy of left lower limb (10) Carotid artery stenosis: Code(s): I65.29 - Occlusion and stenosis of unspecified carotid artery Qualifiers: Laterality: bilateral Qualified Code(s): I65.23 - Occlusion and stenosis of bilateral carotid arteries Plan Patient is 78-year-old female with a history of follicular lymphoma which has been in remission until recently Labs were done in January of this year, vitamin B12 level is still high Patient have a history of follicular lymphoma which was in remission until recently MRI showed lesions in spine so patient ended up having PET scan through her oncologist which showed intense action around her tongue mostly left side more than right She under care of Dr. Douglas at [facility] Continued to have pain left hip off and on but in spite of that she is very active and does gardening Patient also have panic disorder along with OCD currently taking lorazepam 0.5 mg b.i.d. She is aware of side effects her family is aware of side effects as well, patient says that when she takes a medication she feels very normal and function well she would like to continue that. It seems as if she has stopped taking pantoprazole because she is having epigastric discomfort I have sent omeprazole instead Frozen shoulder right, she was seen by Orthopedic and was given cortisone injection which did improve the pain however range of motion is still very limited I prescribed gabapentin 100 mg to be taken at night which will help patient sleep as well as well as neuropathy pain in her left leg. Continue levothyroxine 112 mcg for hypothyroidism And pravastatin 20 mg for lipid control Follow-up 3 months Medications: New 2 omeprazole Take it at night on empty stomach 20 mg PO DAILY 90 caps 0RF Refilled 2 lorazepam 0.5 mg PO BID PRN 60 tabs 2RF anxiety 30 days Coding Level of Care Code Est Pt Level 4 (93474) Complex EM visit Add On G2211 Diagnoses Lipid disorder E78.9 Other specified hypothyroidism E03.8 Difficulty sleeping G47.9 Chronic left-sided low back pain with left-sided sciatica M54.42; G89.29 Back pain laterality: left Sciatica laterality: sciatica of left side Sciatica presence: with sciatica Chronic GERD K21.9 Mixed obsessional thoughts and acts F42.2 Obsessive-compulsive disorder type: mixed obsessional thoughts and acts 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 Follicular lymphoma type: other follicular type Lymphoma site: head Panic disorder F41.0 Neuropathy of left lower extremity G57.92 Bilateral carotid artery stenosis I65.23 Laterality: bilateral
[2024-04-03 08:50] VITALS: BP 122/68; PULSE 77; O2SAT 96; BMI 28.9
== END 2024-04-03 09:13 | disposition home or self-care (01) ==
PROVIDERS: PCP Internal Medicine; Visit Provider Internal Medicine
DX: E78.9 Disorder of lipoprotein metabolism, unspecified (principal); E03.8 Other specified hypothyroidism; G47.9 Sleep disorder, unspecified; C82.81 Other types of follicular lymphoma, lymph nodes of head, face, and neck; M54.42 Lumbago with sciatica, left side; G89.29 Other chronic pain; K21.9 Gastro-esophageal reflux disease without esophagitis; F42.2 Mixed obsessional thoughts and acts; F41.0 Panic disorder [episodic paroxysmal anxiety]; G57.92 Unspecified mononeuropathy of left lower limb; I65.23 Occlusion and stenosis of bilateral carotid arteries
CPT/HCPCS: 99214; G2211

== ENCOUNTER 2024-05-10 08:12 | Outpatient (AMB) | payer MEDICARE, SELFPAY ==
--- NOTE | 2024-05-10 08:14 | A.OFFVIS_ITS ---
Intake Visit Reasons: Right shoulder pain Intake Note: Gabrielle is a 78 year old Right hand dominate female who presents with right shoulder pain, stiffness and loss of ROM. Patient continues doing home stretches. She reports last injection, 02/01/24, gave her relief and wishes to repeat steroid injection today. She has taken Tylenol which gives her mild relief. She wishes to hold off on surgery if at all possible. Allergies fluoxetine Adverse Reaction (Severe, Verified 05/10/24 08:14) Agitated ancef Adverse Reaction (Uncoded 05/10/24 08:14) Anxiety Medication List - Last Reconciled 05/10/24 by Chadwick Benjamin MD aspirin 81 mg PO DAILY gabapentin 100 mg PO BEDTIME levothyroxine 112 mcg PO DAILY lorazepam 0.5 mg PO BID PRN 30 days omeprazole 20 mg PO DAILY pravastatin 20 mg PO BEDTIME PFSH Medical History History of lymphoma Abnormal colonoscopy Follicular lymphoma Anxiety and depression Hypercholesteremia Hx of Kuldeep thyroiditis Surgical History Hx of right knee surgery History of right hip replacement No pertinent past surgical history Family History Paternal Aunt Breast cancer Social History Housing: House Alcohol intake: never Patient Tobacco Use Status: Former Tobacco user (quit 7 years ) Tobacco use type: Cigarette Years Smoked: 25 years e-Cigarette/Vaping Use: Never Used service: No Current occupational status: retired Current occupation: Right hand dominate Cognitive needs: No Hearing needs: No Vision needs: Yes Physical Exam Const Other: Well-nourished well-developed very friendly female awake alert and oriented x3 in no acute distress Extrem Other: Bilateral upper extremity examination shows good capillary refill, no skin lesions noted, normal sensation light touch Right shoulder examination shows decreased range of motion when compared to her left shoulder, 3/5 strength with supraspinatus testing, mild crepitus with range of motion, no instability Office Procedures Joint Injection/Aspiration Joint Injection/Aspiration Primary Site: right shoulder Prep: site was prepped using aseptic technique Injected: 40 mg of, DepoMedrol and 1% plain lidocaine Procedure: The patient tolerated the procedure well Coding 53963 - Large joint Procedure code (CPT) selection complete Assessment & Plan Assessment & Plan (1) Right shoulder pain: Code(s): M25.511 - Pain in right shoulder Category: Medical Plan Ms. Olivares presents with right shoulder pain due to chronic rotator cuff tear arthropathy. I had a lengthy discussion with the patient regarding the treatmen t options. The risks and benefits of a right shoulder cortisone injection were discussed at length with the patient. The patient wished to proceed. She tolerated the injection well. She will continue with her home stretching program. She will follow up with me on an as-needed basis should her symptoms not plateau at an unacceptable level over the next few months. Feel free to call me at any time should questions regarding her orthopedic management arise. I spent 21 minutes in reviewing the patient's records and imaging studies, seeing the patient and documenting in the medical record. Orders: Orders AMB Joint Injection/Aspiration Today M25.511 - Pain in right shoulder Coding Level of Care Code Est Pt Level 3 (62664) Diagnoses Right shoulder pain M25.511 CPT Codes Coding - 57599 Large joint: 48419 - Large joint ([id number])
== END 2024-05-10 08:38 | disposition home or self-care (01) ==
PROVIDERS: PCP Internal Medicine; Visit Provider Orthopaedic Surgery
DX: M25.511 Pain in right shoulder (principal)
CPT/HCPCS: 20610; 99213

== ENCOUNTER → 2024-05-10 08:12 | Outpatient (BNVA) | payer MEDICARE, SELFPAY | PROVIDERS: PCP Internal Medicine; Visit Provider Orthopaedic Surgery | DX: M25.511 Pain in right shoulder (principal) | CPT/HCPCS: 20610; 99212; J1010 ==

== ENCOUNTER 2024-06-20 09:38 | Outpatient (AMB) | payer MEDICARE, SELFPAY ==
[2024-06-20 09:48] VITALS: BP 122/76; PULSE 78; O2SAT 96; BMI 28.7
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
== END 2024-06-20 10:32 | disposition home or self-care (01) ==
PROVIDERS: PCP Internal Medicine; Visit Provider Internal Medicine
DX: G47.9 Sleep disorder, unspecified (principal); C82.81 Other types of follicular lymphoma, lymph nodes of head, face, and neck; F41.0 Panic disorder [episodic paroxysmal anxiety]; F42.2 Mixed obsessional thoughts and acts; E78.9 Disorder of lipoprotein metabolism, unspecified; E03.8 Other specified hypothyroidism; E55.9 Vitamin D deficiency, unspecified; R94.4 Abnormal results of kidney function studies; K21.9 Gastro-esophageal reflux disease without esophagitis; M54.42 Lumbago with sciatica, left side; G89.29 Other chronic pain; G57.92 Unspecified mononeuropathy of left lower limb

== ENCOUNTER → 2024-06-20 09:38 | Outpatient (BNVA) | payer MEDICARE, SELFPAY | PROVIDERS: PCP Internal Medicine; Visit Provider Internal Medicine ==

== ENCOUNTER 2024-06-20 10:24 | Outpatient (REF) | payer MEDICARE, SELFPAY ==
[2024-06-20 13:12] LABS: MANUAL DIFF FLAG NO
[2024-06-20 13:26] LABS: Basophils Percent Auto 0.7 % (0-2); Eosinophils Absolute Auto 0.1 X10*3/uL (0.0-0.4); Hematocrit 36.8 % (37.0-47.0); Hemoglobin 12.4 g/dl (12.0-16.0); Imm Gran Abs Auto 0.02 X10*3/uL (0.00-0.03); Imm Gran Pct Auto 0.3 % (0.0-0.4); Lymphocytes Absolute Auto 1.6 X10*3/uL (1.2-4.9); Lymphocytes Percent Auto 26.5 % (20-40); Mean Corpuscular HGB Conc 33.7 g/dl (31.0-35.0); Mean Corpuscular Hemoglobin 32.2 pg (27.0-33.0); Mean Corpuscular Volume 95.6 fL (80.0-98.0); Monocytes Absolute Auto 0.3 X10*3/uL (0.1-1.2); Monocytes Percent Auto 5.4 % (2-11); Neutrophils Percent Auto 66.1 % (45-73); Platelet Count 313 X10*3/uL (160-400); Red Blood Count 3.85 X10*6/uL (4.20-5.50); Red Cell Distribution Width 13.2 % (11.0-16.0); White Blood Count 6.1 X10*3/uL (4.8-10.8)
[2024-06-20 14:09] LABS: Alanine Aminotransferase 14 U/L (0-31); Albumin Level 4.3 g/dL (3.5-5.0); Alkaline Phosphatase 63 U/L (39-117); Anion Gap 12 (12-20); Aspartate Amino Transferase 21 U/L (5-31); Bilirubin Total 0.5 mg/dL (0.0-1.0); Blood Urea Nitrogen 13 mg/dL (9-16); Carbon Dioxide 30 mmol/L (22-29); Chloride 104 mmol/L (96-108); Estimated Glomerular Filt Rate > 60; Glucose Random 96 mg/dL (60-115); Potassium 4.5 mmol/L (3.3-5.1); Sodium 141 mmol/L (135-145); TSH reflex Free T4 1.02 uIU/mL (0.32-4.0); Total Protein 6.9 g/dL (6.5-8.0)
[2024-06-20 14:24] LABS: Vitamin B12 1140 pg/mL (200-900)
[2024-06-21 16:17] LABS: LDL Cholesterol Direct 84 mg/dL (<100)
[2024-06-25 16:43] LABS: Vitamin D 25-OH, D2 <4 ng/mL; Vitamin D 25-OH, D3 53 ng/mL; Vitamin D 25-OH, Total 53 ng/mL (30-100)
== END 2024-06-20 10:25 | disposition home or self-care (01) ==
LOC: HO.HMGCLDS 10:24
PROVIDERS: PCP Internal Medicine; Visit Provider Internal Medicine
DX: E78.9 Disorder of lipoprotein metabolism, unspecified (principal); E03.8 Other specified hypothyroidism; E55.9 Vitamin D deficiency, unspecified; G47.9 Sleep disorder, unspecified; R94.4 Abnormal results of kidney function studies; K21.9 Gastro-esophageal reflux disease without esophagitis
CPT/HCPCS: 36415; 80053; 82306; 82607; 83721; 84443; 85025; 96127; 99212

== ENCOUNTER 2024-07-03 09:06 | Outpatient (REF) | payer MEDICARE, SELFPAY ==
--- NOTE | ~2024-07-03 | MM_ITS ---
EXAMINATION: MM SCREENING DIGITAL BREAST TOMOSYNTHESIS, BILATERAL CLINICAL INFORMATION: Screening. Asymptomatic. COMPARISON: Mammography: Comparison is made with available priors TECHNIQUE: Digital breast mammography with tomosynthesis is performed in both the craniocaudal and mediolateral oblique views along with computer-aided detection (CAD). FINDINGS: There are scattered areas of fibroglandular density (ACR BI-RADS breast composition Category b). There are no significant masses, abnormal calcifications, or other abnormalities. MM/MM tomosynthesis screening BI IMPRESSION: No mammographic evidence of malignancy. ASSESSMENT: BI-RADS BI-RADS 1 - Negative RECOMMENDATION: Routine annual mammography screening. 1 year F/U This examination should not preclude the clinical evaluation of a suspicious palpable abnormality. This patient's information was entered into a reminder system with a target due date for their next mammogram. Electronically signed by: Martha Gibson DO 07/12/2024 07:10 PM EDT
== END 2024-07-03 09:07 | disposition home or self-care (01) ==
LOC: HO.MAMMO 09:06
PROVIDERS: PCP Internal Medicine; Visit Provider Internal Medicine
DX: Z12.31 Encounter for screening mammogram for malignant neoplasm of breast (principal)
CPT/HCPCS: 77063; 77067

== ENCOUNTER → 2024-07-03 09:30 | Outpatient (BNV) | payer MEDICARE, SELFPAY | PROVIDERS: PCP Internal Medicine; Visit Provider Internal Medicine | DX: Z12.31 Encounter for screening mammogram for malignant neoplasm of breast (principal) | CPT/HCPCS: 77063; 77067 ==

== ENCOUNTER 2024-08-09 08:41 | Outpatient (AMB) | payer MEDICARE, SELFPAY ==
--- NOTE | 2024-08-09 08:45 | A.OFFVIS_ITS ---
Vital Signs 08/09/24 08:49 Height 5 ft 3 in Weight 162 lb BMI 28.7 Intake Visit Reasons: Right shoulder pain Intake Note: Gabrielle is an 79-year-old female who presents with complaints of right shoulder pain. She describes her pain as sharp in nature. Her pain has gotten worse over the last year in spite of continued non operative treatments. She has had cortisone injection therapy which gave her fairly good relief. She has taken Tylenol, anti-inflammatory medicines and gabapentin which gave her mild relief. She wishes to hold off on surgery if at all possible. Allergies fluoxetine Adverse Reaction (Severe, Verified 08/09/24 08:48) Agitated ancef Adverse Reaction (Uncoded 08/09/24 08:48) Anxiety Medication List - Last Reconciled 08/09/24 by Chadwick Benjamin MD aspirin 81 mg PO DAILY gabapentin 100 mg PO BEDTIME levothyroxine 112 mcg PO DAILY lorazepam 1 mg PO BID PRN 90 days lorazepam 1 mg PO BID PRN omeprazole 20 mg PO DAILY pravastatin 20 mg PO BEDTIME [facility] Medical History History of lymphoma Abnormal colonoscopy Follicular lymphoma Anxiety and depression Hypercholesteremia Hx of Kuldeep thyroiditis Surgical History Hx of right knee surgery History of right hip replacement No pertinent past surgical history Family History Paternal Aunt Breast cancer Social History Housing: House Alcohol intake: never Patient Tobacco Use Status: Former Tobacco user (quit 7 years ) Tobacco use type: Cigarette Years Smoked: 25 years e-Cigarette/Vaping Use: Never Used service: No Current occupational status: retired Current occupation: Right hand dominate Cognitive needs: No Hearing needs: No Vision needs: Yes Physical Exam Vital Signs: BMI result Body Mass Index 28.7 Const Other: Well-nourished well-developed very friendly female awake alert and oriented x3 in no acute distress Extrem Other: Bilateral upper extremity examination shows good capillary refill, no skin lesions noted, normal sensation light touch Right shoulder examination shows decreased active range of motion when compared to her left shoulder, 3/5 strength with supraspinatus testing, positive impingement signs, no instability Office Procedures AMB Joint Injection/Aspiration Joint Injection/Aspiration Primary Site: right shoulder Prep: site was prepped using aseptic technique Injected: 40 mg of, DepoMedrol and 1% plain lidocaine Procedure: The patient tolerated the procedure well Coding - Large joint Procedure code (CPT) selection complete Assessment & Plan Assessment & Plan (1) Right shoulder pain: Code(s): M25.511 - Pain in right shoulder Category: Medical Plan Ms. Olivares presents with right shoulder pain due to impingement syndrome and chronic rotator cuff tearing. The risks and benefits of a right shoulder cortisone injection were discussed at length with the patient. The patient wished to proceed. She tolerated the injection well. She will continue with her home stretching program. She will contact me prior to her follow-up appointment in 3 months should any questions or concerns arise. Feel free to call me at any time should questions regarding her orthopedic management arise. I spent 22 minutes in reviewing the patient's records and imaging studies, seeing the patient and documenting in the medical record. Orders: Orders AMB Joint Injection/Aspiration 08/09/24 M25.511 - Pain in right shoulder Coding Level of Care Code Est Pt Level 3 (63859) Complex EM visit Add On G2211 Diagnoses Right shoulder pain M25.511 CPT Codes Coding - 97791 Large joint: 68175 - Large joint ([id number])
[2024-08-09 08:49] VITALS: BMI 28.7
== END 2024-08-09 09:03 | disposition home or self-care (01) ==
LOC: HO.HOS 08:42
PROVIDERS: PCP Internal Medicine; Visit Provider Orthopaedic Surgery
DX: M75.41 Impingement syndrome of right shoulder (principal)
CPT/HCPCS: 20610; 99213

== ENCOUNTER → 2024-08-09 08:41 | Outpatient (BNVA) | payer MEDICARE, SELFPAY | PROVIDERS: PCP Internal Medicine; Visit Provider Orthopaedic Surgery | DX: M25.511 Pain in right shoulder (principal) | CPT/HCPCS: 20610; 99212; J1010; J2003 ==

== ENCOUNTER 2024-08-12 08:32 | Emergency (ER) | payer MEDICARE, SELFPAY ==
--- NOTE | ~2024-08-12 | CT_ITS ---
CT HEAD WITHOUT IV CONTRAST CLINICAL INFORMATION: left eye loss of vision COMPARISON: No prior CT scan available for comparison. TECHNIQUE: Department standard protocol. This CT examination was performed using dose optimization techniques as appropriate, variously including the following: *Automated exposure control *Adjustment of mA and/or kV according to patient size (this includes techniques or standardized protocols for targeted exams where dose is matched to indication/reason for exam; i.e. extremities or head) *Use of iterative reconstruction technique DLP: 608 mGy-cm FINDINGS: CEREBRAL HEMISPHERES: Lacunar infarct in the left parietal lobe image 29 series [address] evidence of intracranial bleed. BRAIN PARENCHYMA: Normal caldwell-white matter differentiation. SUBDURAL SPACE: No bleed. BASAL GANGLIA AND PINEAL GLAND: Unremarkable VENTRICLES: Symmetric and normal in size. CEREBELLUM AND BRAINSTEM: No space-occupying mass, hemorrhage or acute infarct. CEREBELLOPONTINE ANGLES: No lesion found. ORBITS: No intraorbital mass. VESSELS: Unremarkable SKULL BASE: Unremarkable INCLUDED SINUSES AT SKULL BASE: Clear SKULL AND SKIN: No fracture or bone lesion found. CT/CT head/brain wo IV con IMPRESSION: 1. 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 2. No CT evidence of intracranial bleed. Electronically signed by: Nidia Dangelo MD 08/12/2024 10:10 AM [facility]
--- NOTE | ~2024-08-12 | CT_ITS ---
CT ANGIOGRAM OF THE NECK WITH INTRAVENOUS CONTRAST CT ANGIOGRAM OF THE HEAD WITH INTRAVENOUS CONTRAST HISTORY:Vision loss in left eye TECHNIQUE: CT angiogram of the head and neck was performed from the lung apex to the vertex after administration of 70 cc of Omnipaque 350 intravenous contrast using a bolus tracking technique with region of interest over the aortic arch. All CT exams at this location are performed using dose optimization techniques as appropriate to a performed exam including at least one of the following: * Automated exposure control * Adjustment of the mA and/or kV according to patient size (this includes techniques or standardized protocols for targeted exams where dose is matched to indication / reason for exam; i/e/ extremities or head) * Use of iterative reconstructive technique COMPARISON: Head CT on 08/12/2024 FINDINGS: CT ANGIOGRAM OF THE NECK: RIGHT COMMON CAROTID ARTERY:Atherosclerotic calcification without significant stenosis. RIGHT INTERNAL CAROTID ARTERY:Atherosclerotic calcification without significant stenosis. RIGHT VERTEBRAL ARTERY:is patent without significant stenosis. LEFT COMMON CAROTID ARTERY:is patent without significant stenosis. LEFT INTERNAL CAROTID ARTERY:is patent without significant stenosis. LEFT VERTEBRAL ARTERY:is patent without significant stenosis. CT ANGIOGRAM OF THE HEAD: Mild atherosclerotic disease of the cavernous and supraclinoid internal carotid arteries without significant stenosis. Right vertebral artery Unremarkable Left vertebral artery:Unremarkable Basilar artery:Unremarkable Left posterior cerebral artery:Unremarkable Right posterior cerebral artery:Unremarkable Anterior cerebral arteries Unremarkable Right middle cerebral artery:Unremarkable Left middle cerebral artery: Unremarkable Venous sinuses areUnremarkable. Moderate degenerative disease of the cervical spine. CT/CT angio head neck IMPRESSION: 1. No hemodynamically significant stenosis of the head or neck. 2. Mild atherosclerotic disease of the cavernous and supraclinoid internal carotid arteries without significant stenosis. Electronically signed by: Jade Sahu MD 08/12/2024 12:03 PM [facility] [place]
--- NOTE | ~2024-08-12 | XR_ITS ---
EXAMINATION: XR CHEST 1 VIEW CLINICAL INFORMATION: loss of vision in the left eye COMPARISON: None TECHNIQUE: Single portable frontal view. Tubes and lines: None Lungs and pleura: Both lungs are clear. Heart and mediastinum: The mediastinum is within normal limits.. Bones/soft tissue: Skeletal structures included are normal for patient's age. XR/XR chest 1V IMPRESSION: No radiographic evidence of acute cardiopulmonary disease. Electronically signed by: Nidia Dangelo MD 08/12/2024 10:03 AM [facility]
[2024-08-12 08:35] VITALS: BP 178/68; PULSE 78; RESP 16; TEMP 36.4; O2SAT 100; BMI 28.7
--- NOTE | 2024-08-12 08:58 | ECG_ITS ---
Test Reason : LOSS OF VISION OF THE LEFT EYE Blood Pressure : / mmHG Vent. Rate : 064 BPM Atrial Rate : 064 BPM P-R Int : 146 ms QRS Dur : 074 ms QT Int : 428 ms P-R-T Axes : 055 -01 051 degrees QTc Int : 441 ms Normal sinus rhythm Possible Left atrial enlargement Borderline ECG No previous ECGs available Referred By: Khushi Haro Electronically Signed By:Fadi Osborne
--- NOTE | 2024-08-12 09:02 | ED_ITS ---
HPI - Eye Problem General Chief complaint: Eye Problems Stated complaint: l eye problem Time Seen by Provider: 08/12/24 08:42 Source: patient Mode of arrival: ambulatory Limitations: no limitations History of Present Illness ED Provider: DR. Haro HPI Narrative: 79 year female came in for evaluation painless loss of vision in the left eye started at 22:00 last night did not seek immediate medical attention because patient is a and did not want to bother her family, patient was watching TV and suddenly found out that she can not see a from her left eye, no pain, no headache, no trauma, no weakness, no numbness, no slurred speech. Related Data Home Medications ?Medication ?Instructions ?Recorded ?Confirmed aspirin 325 mg tablet 81 mg PO DAILY 01/11/23 08/09/24 lorazepam 1 mg tablet 1 mg PO BID PRN 08/09/24 08/09/24 Previous Rx's ?Medication ?Instructions ?Recorded gabapentin 100 mg capsule 100 mg PO BEDTIME #30 caps 01/11/23 omeprazole 20 mg capsule,delayed 20 mg PO DAILY #90 caps 04/03/24 release lorazepam 1 mg tablet 1 mg PO BID PRN anxiety 90 days 06/20/24 #180 tabs levothyroxine 112 mcg tablet 112 mcg PO DAILY #90 tabs 08/03/24 pravastatin 20 mg tablet 20 mg PO BEDTIME #90 tabs 08/03/24 Allergies Allergy/AdvReac Type Severity Reaction Status Date / Time fluoxetine AdvReac Severe Agitated Verified 08/12/24 08:39 ancef AdvReac Anxiety Uncoded 08/09/24 08:48 Review of Systems 2 Review of Systems: all other systems are reviewed and are negative Constitutional: Reports as per HPI and Reports no additional constitutional complaints Eyes: Reports as per HPI and Reports no additional eye complaints Reports system reviewed and no additional complaints, except as documented Cardiovascular: Reports as per HPI and Reports no additional cardiovascular complaints Respiratory: Reports as per HPI and Reports no additional respiratory complaints Gastrointestinal: Reports as per HPI and Reports no additional gastrointestinal complaints Genitourinary: Reports no additional female genitourinary complaints Musculoskeletal: Reports no additional musculoskeletal complaints Skin/Breast: Reports system reviewed and no additional complaints, except as docu Psychiatric: Reports no additional psychiatric complaints Endocrine: Reports no additional endocrine complaints Hematologic/Lymphatic: Reports no additional hematologic/lymphatic complaints Allergic/Immunologic: Reports no additional allergic/immunologic complaints Reports system reviewed and no additional complaints, except as documented and Reports Abnormal speech present FOR[facility]LY [facility], [facility] Past Medical History Medical History History of lymphoma Abnormal colonoscopy Follicular lymphoma Anxiety and depression Hypercholesteremia Hx of Kuldeep thyroiditis Surgical History Hx of right knee surgery History of right hip replacement No pertinent past surgical history Family History Family History Paternal Aunt Breast cancer Social History Social History Housing: House Alcohol intake: never Patient Tobacco Use Status: Former Tobacco user Tobacco use type: Cigarette Years Smoked: 25 years Smoked in Last 30 Days: No e-Cigarette/Vaping Use: Never Used Use of substances other than those prescribed or required for medical reasons: No Advance Directives: No Advance Directives Information Provided: No Do you have a plan to hurt others: No Plan service: No Current occupational status: retired Current occupation: Right hand dominate Cognitive needs: No Hearing needs: No Vision needs: Yes Physical Exam 2 Vital Signs: Vital Signs: Last Vital Signs Temp 98.1 F 08/12/24 12:28 Pulse 67 08/12/24 12:28 Resp 16 08/12/24 12:28 BP 150/62 H 08/12/24 12:28 Pulse Ox 100 08/12/24 12:28 O2 Del Method Room Air 08/12/24 12:28 BMI result Body Mass Index 28.7 Vital signs have been reviewed and appear to be correct. Blood pressure elevated. Heart rate normal. Respiratory rate normal. Temperature normal. Oxygen saturation normal. Appearance: Alert. Oriented X3. No acute distress. Head: Normal external exam. Normocephalic. Atraumatic. No Jones signs noted. No raccoon eyes noted Eyes: Patient reports no vision out of left eye General: appearance normal, both eyes and all related structures Visual Pinto: normal visual pinto by confrontation Alignment and Position: alignment normal and position normal Periorbital: periorbital findings normal Eyelids: Yes eyelids normal Conjunctivae: conjunctivae normal Sclerae: sclerae normal Corneas: corneas normal Pupils: Equal, round and reactive pupils present and Pupil accommodation reflex normal EOM: EOM abnormal (Limited abduction of right eye) and No Nystagmus present. IOP: 12 in the left / 11 in the right Direct Ophthalmoscopy: normal light reflex, no photophobia, no papilledema and fundi normal bilaterally ENT: TM's Normal. Pharynx normal. Uvula midline. Moist mucous membranes. No trismus noted. No drooling noted. No muffled voice noted. Neck: Normal inspection. Neck supple. FROM. No adenopathy. Thyroid Normal. No meningeal signs. No neck mass noted. CVS: Normal heart rate and rhythm. Heart sound normal. No murmurs noted. Pulses normal throughout. Respiratory: No respiratory distress. Painless inspiration. Breath sounds normal. No wheezes/rales/rhonchi noted. Chest nontender. No accessory muscle usage noted or decreased air movement noted. Abdomen: Soft and nontender. Bowel sounds normal in all 4 quadrants. No distention noted. No organomegaly noted. No visible injury noted. Back: No CVA tenderness. Full range of motion noted. Skin: Skin warm and dry. Normal skin color. Normal skin turgor. No rashes/lesions/lacerations noted. Extremities: No lower extremity edema. Extremities exhibit normal range of motion. Extremities nontender. Neuro: Oriented X 3. Cranial nerve exam: II-XII are grossly intact No motor deficit. No sensory deficit. Reflexes normal. NIH Stroke Scale Internal: Initial- Upon Arrival Level of Consciousness: Alert Level of Consciousness Questions: Answers both questions correctly Level of Consciousness Commands: Performs both tasks correctly Best Gaze: Normal Visual: No visual loss Facial Palsy: Normal Motor Arm (Right): No drift Motor Arm (Left): No drift Motor Leg (Right): No drift Motor Leg (Left): No drift Limb Ataxia: Absent Sensory: Normal Best Language: No aphasia Dysarthia: Normal Extinction and Inattention: No abnormality Score: 0 Course Reevaluation(s) Reevaluation #1: painless sudden loss of vision in the left eye likely secondary to venous versus arterial retinal thrombus, patient presented after more than 12 hours of the onset of her symptoms, Case discussed with Dr. Garcia no emergent intervention is needed at this point. Sed rate/ CRP are within normal which is making vasculitis is unlikely diagnosis therefore no indication for prednisone. Stroke workup is unremarkable patient with 0 HI and score. Time: 15:51 Medications Administered Discontinued Medications Generic Name Dose Route Start Last Admin Trade Name Freq PRN Reason Stop Dose Admin Iohexol 100 ml 08/12/24 11:21 08/12/24 11:21 Iohexol 350 Mg/Ml 100 Ml Infus..Btl IV 08/12/24 11:22 70 ml ONCE ONE Administration Tetracaine HCl 1 drop 08/12/24 08:58 08/12/24 10:01 Tetracaine Hcl/Pf 0.5% Oph Belén 4 Ml Drops EYE-BOTH 08/12/24 08:59 1 drop ONCE ONE Administration Medical Decision Making Differential Diagnosis Differential Diagnoses: The differential diagnosis associated with the presentation includes ( Retinal venous thrombosis, retinal artery thrombosis, CVA, retinal detachment, vasculitis with elevated inflammatory markers, severe anemia, electrolyte derangement, viral syndrome.) Admission/Observation Consideration of admission/observation: Escalation of care including admission/observation considered Consult Healthcare Provider Management of the patient was discussed with: Commercial Banker ( Dr. Garcia) Lab Data MDM Lab Attestation statement: I reviewed the patient's lab results. 08/12/24 09:38 08/12/24 09:38 Labs: Lab Results 08/12/24 08/12/24 08/12/24 Range/Units 09:34 09:38 14:29 WBC 6.2 (4.8-10.8) X10*3/uL RBC 3.68 L (4.20-5.50) X10*6/uL Hgb 11.9 L (12.0-16.0) g/dl Hct 34.7 L (37.0-47.0) % MCV 94.3 (80.0-98.0) fL MCH 32.3 (27.0-33.0) pg MCHC 34.3 (31.0-35.0) g/dl RDW 13.6 (11.0-16.0) % Plt Count 287 (160-400) X10*3/uL MPV 9.3 L (9.4-12.3) fL Immature Gran % (Auto) 0.2 (0.0-0.4) % Neut % (Auto) 74.8 H (45-73) % Lymph % (Auto) 16.7 L (20-40) % [place] % (Auto) 6.6 (2-11) % Eos % (Auto) 1.1 (0-4) % Baso % (Auto) 0.6 (0-2) % Lymph # (Auto) 1.0 L (1.2-4.9) X10*3/uL [place] # (Auto) 0.4 (0.1-1.2) X10*3/uL Eos # (Auto) 0.1 (0.0-0.4) X10*3/uL Baso # (Auto) 0.0 (0.0-0.2) X10*3/uL Abs Immat Gran (auto) 0.01 (0.00-0.03) X10*3/uL Absolute Neuts (auto) 4.7 (2.0-8.3) x10*3/uL Absolute Nucleated RBC 0.000 (0.0-0.012) X10*3/uL Nucleated RBC % (auto) 0.0 (0.0-0.2) /100WBC ESR 13 (0-20) MM/HR Sodium 143 (135-145) mmol/L Potassium 4.3 (3.3-5.1) mmol/L Chloride 106 (96-108) mmol/L Carbon Dioxide 29 (22-29) mmol/L Anion Gap 12 (12-20) BUN 14 (9-16) mg/dL Creatinine 0.88 (0.5-1.4) mg/dL Estim Creat Clear Calc 48.1 Estimated GFR > 60 Random Glucose 95 (60-115) mg/dL Calcium 9.4 (8.4-10.2) mg/dL Total Bilirubin 0.3 (0.0-1.0) mg/dL Direct Bilirubin 0.1 (0.0-0.5) mg/dL AST 29 (5-31) U/L ALT 18 (0-31) U/L Alkaline Phosphatase 66 (39-117) U/L Troponin I High Sens 48.3 H (<3.5-17.0) ng/L C-Reactive Protein 0.12 (< or = 0.50) mg/dL B-Natriuretic Peptide 132 H (<100) pg/mL Total Protein 6.7 (6.5-8.0) g/dL Albumin 4.3 (3.5-5.0) g/dL Lipase 38 (8-78) U/L Urine Color Yellow Urine Appearance Clear Urine pH 8.0 (5.0-9.0) Ur Specific [place] >= 1.030 H (1.005-1.025) Urine Protein Negative (Neg-Trace) mg/dL Urine Glucose (UA) Negative (Negative) mg/dL Urine Ketones Negative (Negative) mg/dL Urine Blood Negative (Negative) Urine Nitrite Negative (Negative) Ur Leukocyte Esterase Negative (Negative) COVID-19 (CHARISSE) Negative (Negative) COVID-19 Clin Com See Note Independent Interpretation I performed an independent interpretation of an: Plain X-Ray ( Chest, no radiographic evidence of acute cardiopulmonary disease.) and CT Scan ( CT/ CTA head and neck:1. No hemodynamically significant stenosis of the head or neck. 2. Mild atherosclerotic disease of the cavernous and supraclinoid internal carotid arteries without significant stenosis. ) Radiology Impression Discussion of test interpretation with radiology: I have reviewed the radiologist's reading. Discharge Plan Discharge Clinical Impression: Retinal vein thrombosis, left, Sudden visual loss of left eye Patient Disposition: Home, Self-Care Additional Instructions: avoid strenuous activity, rest, follow-up with Dr. Garcia. Prescriptions: No Action levothyroxine 112 mcg tablet 112 mcg PO DAILY Qty: 90 0RF pravastatin 20 mg tablet 20 mg PO BEDTIME Qty: 90 1RF gabapentin 100 mg capsule 100 mg PO BEDTIME Qty: 30 0RF aspirin 325 mg tablet 81 mg PO DAILY omeprazole 20 mg capsule,delayed release(DR/EC) 20 mg PO DAILY Qty: 90 0RF Rx Instructions: Take it at night on empty stomach lorazepam 1 mg tablet 1 mg PO BID PRN (Reason: anxiety) 90 Days Qty: 180 0RF lorazepam 1 mg tablet 1 mg PO BID PRN Referrals: Dharmesh Garcia [Physician] - Terra Becerra MD [Primary Care Provider] - Print Language: Cypriot
--- NOTE | 2024-08-12 09:40 | PC.NURSE ---
labs obtained/sent to lab by tech. pt aware UA is needed at this time.
[2024-08-12 09:42] LABS: MANUAL DIFF FLAG NO
[2024-08-12 09:44] LABS: Basophils Percent Auto 0.6 % (0-2); Eosinophils Absolute Auto 0.1 X10*3/uL (0.0-0.4); Eosinophils Percent Auto 1.1 % (0-4); Hematocrit 34.7 % (37.0-47.0); Hemoglobin 11.9 g/dl (12.0-16.0); Imm Gran Abs Auto 0.01 X10*3/uL (0.00-0.03); Imm Gran Pct Auto 0.2 % (0.0-0.4); Lymphocytes Percent Auto 16.7 % (20-40); Mean Corpuscular HGB Conc 34.3 g/dl (31.0-35.0); Mean Corpuscular Hemoglobin 32.3 pg (27.0-33.0); Mean Corpuscular Volume 94.3 fL (80.0-98.0); Mean Platelet Volume 9.3 fL (9.4-12.3); Monocytes Absolute Auto 0.4 X10*3/uL (0.1-1.2); Monocytes Percent Auto 6.6 % (2-11); Neutrophils Absolute Auto 4.7 x10*3/uL (2.0-8.3); Neutrophils Percent Auto 74.8 % (45-73); Platelet Count 287 X10*3/uL (160-400); Red Blood Count 3.68 X10*6/uL (4.20-5.50); Red Cell Distribution Width 13.6 % (11.0-16.0); White Blood Count 6.2 X10*3/uL (4.8-10.8)
--- NOTE | 2024-08-12 09:53 | PC.NURSE ---
visual acuity testing being completed by tech. see documentation for further details.
[2024-08-12 10:01] LABS: Alanine Aminotransferase 18 U/L (0-31); Albumin Level 4.3 g/dL (3.5-5.0); Alkaline Phosphatase 66 U/L (39-117); Anion Gap 12 (12-20); Aspartate Amino Transferase 29 U/L (5-31); Bilirubin Direct 0.1 mg/dL (0.0-0.5); Bilirubin Total 0.3 mg/dL (0.0-1.0); Blood Urea Nitrogen 14 mg/dL (9-16); Calcium 9.4 mg/dL (8.4-10.2); Carbon Dioxide 29 mmol/L (22-29); Chloride 106 mmol/L (96-108); Creatinine Clr Calc Pharmacy 48.1; Estimated Glomerular Filt Rate > 60; Glucose Random 95 mg/dL (60-115); Lipase 38 U/L (8-78); Potassium 4.3 mmol/L (3.3-5.1); Sodium 143 mmol/L (135-145); Total Protein 6.7 g/dL (6.5-8.0)
[2024-08-12] MEDS: Tetracaine HCl/PF 0.5% Oph Sol 4 ML DROPS 1 DROP EYE-BOTH (10:01)
[2024-08-12 10:07] LABS: B Type Natriuretic Peptide 132 pg/mL (<100)
[2024-08-12 10:08] LABS: Troponin-I High Sensitivity 48.3 ng/L (<3.5-17.0)
[2024-08-12 10:09] LABS: COVID-19 Test Negative (Negative); IDNOW Serial# 58CA691E
--- NOTE | 2024-08-12 11:12 | MHC.EDTECH ---
patient is confused , she states the tv remote is a phone .
--- NOTE | 2024-08-12 11:18 | PC.NURSE ---
20gIV placed in the left AC - patent/intact. pt having CTA completed at this time. plan of care ongoing.
[2024-08-12] MEDS: iohexoL 350 MG/ML 100 ML INFUS..BTL IV (11:21)
[2024-08-12 12:28] VITALS: BP 150/62; PULSE 67; RESP 16; TEMP 36.7; O2SAT 100
[2024-08-12 14:35] LABS: Appearance Urine Clear; Color Urine Yellow; Glucose Urine UA Negative (Negative); Leukocyte Esterase Urine Negative (Negative); Nitrite Urine Negative (Negative); Specific Gravity - Urine >= 1.030 (1.005-1.025); Urine Blood Negative (Negative); Urine Ketones Negative (Negative); Urine Protein Negative (Neg-Trace)
[2024-08-12 15:23] LABS: C Reactive Protein 0.12 mg/dL (< or = 0.50)
[2024-08-12 15:45] LABS: Erythrocyte Sedimentation Rate 13 MM/HR (0-20)
[2024-08-12 16:07] VITALS: BP 158/58; PULSE 67; RESP 13; TEMP 36.8; O2SAT 99
[2024-08-12 17:00] VITALS: BP 158/58; PULSE 67; RESP 13; TEMP 36.8; O2SAT 99
== END 2024-08-12 17:00 | disposition home or self-care (01) ==
PROVIDERS: Emergency Provider Emergency Medicine; PCP Internal Medicine
DX: H34.8122 Central retinal vein occlusion, left eye, stable (principal); H54.7 Unspecified visual loss; R51.9 Headache, unspecified; R94.31 Abnormal electrocardiogram [ECG] [EKG]; M54.2 Cervicalgia; Z11.52 Encounter for screening for COVID-19; Z79.899 Other long term (current) drug therapy; Z87.891 Personal history of nicotine dependence
CPT/HCPCS: 70450; 70496; 70498; 71045; 80048; 80076; 81003; 83690; 83880; 84484; 85025; 85652; 86140; 87635; 93005; 99284; 99285; Q9967

== ENCOUNTER → 2024-08-12 08:58 | Outpatient (BNV) | payer MEDICARE, SELFPAY | PROVIDERS: Emergency Provider Emergency Medicine; PCP Internal Medicine; Visit Provider Internal Medicine Cardiovascular Disease | DX: R94.31 Abnormal electrocardiogram [ECG] [EKG] (principal) | CPT/HCPCS: 93010 ==

== ENCOUNTER 2024-09-04 08:20 | Outpatient (AMB) | payer MEDICARE, SELFPAY ==
[2024-09-04 08:30] VITALS: BP 132/74; PULSE 66; O2SAT 99; BMI 28.3
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
== END 2024-09-04 09:10 | disposition home or self-care (01) ==
PROVIDERS: PCP Internal Medicine; Visit Provider Internal Medicine
DX: I65.23 Occlusion and stenosis of bilateral carotid arteries (principal); C82.81 Other types of follicular lymphoma, lymph nodes of head, face, and neck; H34.232 Retinal artery branch occlusion, left eye; F41.0 Panic disorder [episodic paroxysmal anxiety]; F41.1 Generalized anxiety disorder; F42.2 Mixed obsessional thoughts and acts; K21.9 Gastro-esophageal reflux disease without esophagitis; R94.4 Abnormal results of kidney function studies; R26.9 Unspecified abnormalities of gait and mobility; M16.0 Bilateral primary osteoarthritis of hip; E78.9 Disorder of lipoprotein metabolism, unspecified; E03.8 Other specified hypothyroidism

== ENCOUNTER → 2024-09-04 08:20 | Outpatient (BNVA) | payer MEDICARE, SELFPAY | PROVIDERS: PCP Internal Medicine; Visit Provider Internal Medicine | DX: I65.23 Occlusion and stenosis of bilateral carotid arteries (principal); H34.232 Retinal artery branch occlusion, left eye; C82.81 Other types of follicular lymphoma, lymph nodes of head, face, and neck; F41.0 Panic disorder [episodic paroxysmal anxiety]; F41.1 Generalized anxiety disorder; F42.2 Mixed obsessional thoughts and acts; K21.9 Gastro-esophageal reflux disease without esophagitis; R94.4 Abnormal results of kidney function studies; R26.9 Unspecified abnormalities of gait and mobility; M16.0 Bilateral primary osteoarthritis of hip; E78.9 Disorder of lipoprotein metabolism, unspecified; E03.8 Other specified hypothyroidism; G47.9 Sleep disorder, unspecified | CPT/HCPCS: 99212 ==

== ENCOUNTER → 2024-09-11 13:53 | Outpatient (REF) | payer MEDICARE, SELFPAY ==
[2024-09-11 14:24] LABS: Basophils Percent Auto 0.4 % (0-2); Eosinophils Absolute Auto 0.2 X10*3/uL (0.0-0.4); Eosinophils Percent Auto 2.8 % (0-4); Imm Gran Abs Auto 0.02 X10*3/uL (0.00-0.03); Imm Gran Pct Auto 0.3 % (0.0-0.4); Lymphocytes Absolute Auto 1.6 X10*3/uL (1.2-4.9); Lymphocytes Percent Auto 23.7 % (20-40); MANUAL DIFF FLAG NO; Mean Corpuscular HGB Conc 33.3 g/dl (31.0-35.0); Mean Corpuscular Hemoglobin 31.9 pg (27.0-33.0); Mean Corpuscular Volume 95.7 fL (80.0-98.0); Mean Platelet Volume 9.5 fL (9.4-12.3); Monocytes Absolute Auto 0.4 X10*3/uL (0.1-1.2); Monocytes Percent Auto 6.2 % (2-11); Neutrophils Absolute Auto 4.5 x10*3/uL (2.0-8.3); Neutrophils Percent Auto 66.6 % (45-73); Platelet Count 301 X10*3/uL (160-400); Red Blood Count 3.76 X10*6/uL (4.20-5.50); Red Cell Distribution Width 13.6 % (11.0-16.0); White Blood Count 6.8 X10*3/uL (4.8-10.8)
--- NOTE | 2024-09-11 14:24 | CA_ITS ---
Transthoracic Echocardiogram Patient (Last, First, Middle): Gabrielle Olivares, Gender: Female Date of : 1945 Age: 79 Procedure Date: 09/11/2024 Procedure Type: Transthoracic Echocardiogram Location: OP Height: 160.02 cm Weight: 72.58 kg BSA: 1.76 m2 Heart Rate: bpm BP: 114 / 66 mmHg Garage Door Service Technician: ALVARADO Referring MD: Terra Becerra MD House Worker: Patric Zelaya MD Symptoms: I65.23 - Occlusion and stenosis of bilateral carotid arteries Study Quality: Fair ECG Rhythm: Sinus Conclusions: - 1. Hyperdynamic LV ejection fraction of greater than 70% with impaired relaxation filling pattern 2. Severe mitral annular calcification with normal cardiac valvular Dopplers 3. Normal RV systolic pressure 4. No gross pericardial effusion Findings Left Ventricle Normal left ventricular cavity size. There is normal left ventricular wall thickness. The left ventricular systolic function is hyperdynamic. The visually estimated ejection fraction is >70%. Spectral Doppler is indicative of an impaired relaxation filling pattern. Right Ventricle Normal right ventricular cavity size and systolic function. Atria The left atrium is likely dilated. There is lipomatous hypertrophy of the interatrial septum. There is no evidence of interatrial shunt. The right atrium is normal in size. Aortic Valve There is mild calcification of the aortic valve. There is no aortic valve stenosis. There is no aortic valve regurgitation. Mitral Valve There is mild anterior and severe posterior mitral leaflet thickening. There is severe mitral annular calcification. There is trace mitral valve regurgitation. There is no mitral valve stenosis. Pulmonic Valve The pulmonic valve was not well visualized. Tricuspid Valve Normal tricuspid valve structure. There is trace tricuspid valve regurgitation. The right ventricular systolic pressure is normal. The right ventricular systolic pressure is 30 mmHg. Normal right atrial pressure. There is no evidence of pulmonary hypertension. Great Vessels All visible segments of the aorta are normal in size. The pulmonary artery was not well visualized. There is no dilatation of the ascending aorta measuring 2.90 cm. Small plaque is seen in the sino tubular ridge and ascending aorta. Venous The inferior vena cava is normal in size and collapses greater than 50% with inspiration. Pericardium/Pleural There is no evidence of pericardial effusion. Prior Study Comparison No prior study available for comparison. Measurements 2D Linear Measurements IVSd: 0.95 0.6-0.9/0.6-1.0 cm LVIDd: 3.63 3.9-5.3/4.2-5.9 cm LVIDd Index: 2.06 2.4-3.2/2.2-3.1 cm/m2 LVIDs: 2.42 2.0-3.6 cm LVPWd: 1.12 0.7-1.1 cm LA Diam: 2.60 2.7-3.8/3.0-4.0 cm LAIDs Index: 1.48 1.5-2.3 cm/m2 LV Mass: 142.65 67-162/88-224 g LV Mass Index: 81.05 43-95/49-115 g/m2 LVOT Diam: 1.90 3.0+(-)1.3 cm 2D Systolic Function EF 4C: 74.30 >55% EF 2C: 69.80 >55% EF BiP: 71.40 >55% Mitral Valve MV VTI: 0.50 MV Pk Donovan: 1.72 MV Mn Donovan: 0.92 MV Pk Grad: 12.00 MV Mn Grad: 4.00 MV Pk E: 1.06 MV PK A: 1.48 MV Decel Time: 379.00 E/A: 0.70 E'Lateral: 4.57 E'Medial: 3.92 E/E' Med: 27.00 E/E' Lat: 23.20 PHT: 111.00 MVA PHT: 1.98 MVA Continuity: 1.68 Decel Mcduffie: 2.78 Aortic Valve AoV Pk Donovan: 1.95 AoV Mn Donovan: 1.35 AoV VTI: 0.48 AoV Pk Grad: 15.00 Aov Mn Grad: 8.00 TOAN Cont.VTI: 1.75 LVOT LVOT Pk Donovan: 1.36 LVOT Mn Donovan: 0.92 LVOT VTI: 0.30 LVOT Pk Grad: 7.00 LVOT Mn Grad: 4.00 LVOT Diam: 1.90 LVOT Area: 2.84 Diastolic Function MV Pk E: 1.06 MV Pk A: 1.48 E/A: 0.70 E'Medial: 3.92 E/E' Med: 27.00 E' Laterial: 4.57 E/E' Lat: 23.20 Right Ventricle TAPSE (mm): 23.00 TVS' Donovan: 12.40 Tricuspid Valve TR Pk Donovan: 2.35 TR Pk Grad: 22.00 RA Press: 8.00 RVSP: 30.00 Great Vessels Aorta Sinus of Valsalva: 3.35 2.0-3.[address] Ridge: 2.55 1.7-3.4 cm Ao Asc: 2.90 2.1-3.4 cm Updated in Other Vendor System with Status of Final Patric Zelaya MD electronically signed on 09/12/2024 5:48:11 PM with status of Final
[2024-09-11 14:26] LABS: INTERNATIONAL NORM RATIO 0.9 (0.9-1.1); Prothrombin Time 10.1 SEC (10.9-12.4)
[2024-09-11 14:59] LABS: Erythrocyte Sedimentation Rate 13 MM/HR (0-20)
[2024-09-13 16:53] LABS: Homocysteine 13.2 umol/L (<10.4)
== END ==
LOC: HO.CARD 13:53
PROVIDERS: PCP Internal Medicine; Visit Provider Internal Medicine
DX: I65.23 Occlusion and stenosis of bilateral carotid arteries (principal); H34.232 Retinal artery branch occlusion, left eye
CPT/HCPCS: 36415; 83090; 85025; 85300; 85306; 85597; 85598; 85610; 85613; 85652; 85730; 86160; 93306

== ENCOUNTER → 2024-09-11 14:24 | Outpatient (BNV) | payer MEDICARE, SELFPAY | PROVIDERS: PCP Internal Medicine; Visit Provider Internal Medicine Cardiovascular Disease | DX: I35.8 Other nonrheumatic aortic valve disorders (principal); I34.81 Nonrheumatic mitral (valve) annulus calcification; R93.1 Abnormal findings on diagnostic imaging of heart and coronary circulation | CPT/HCPCS: 93306 ==

== ENCOUNTER 2024-09-17 14:55 | Outpatient (REF) | payer MEDICARE, SELFPAY ==
--- NOTE | ~2024-09-17 | US_ITS ---
EXAMINATION: US EXTRACRANIAL CAROTID DUPLEX, BILATERAL CLINICAL INFORMATION: Bilateral carotid stenosis COMPARISON: 08/05/2023 TECHNIQUE: Real-time ultrasound and Doppler techniques (integrating B-mode 2-D vascular images, Doppler spectral analysis and color-flow Doppler imaging) were utilized to interrogate the extracranial carotid arteries, the vertebral arteries and proximal subclavian arteries bilaterally. The degree of stenosis is determined by criteria similar to NASCET. FINDINGS: Right Side: 1. There is mild atherosclerotic plaque seen in the bifurcation/proximal ICA region. 2. The common carotid artery PSV proximally is 62 cm/s and distally 40 cm/s. 3. The proximal internal carotid artery velocities are 70 cm/s systolic and 24 cm/s diastolic. 4. The proximal external carotid artery PSV is 113 cm/s. 5. The vertebral artery shows active flow. 6. The subclavian artery waveforms are normal. Left Side: 1. There is minimal atherosclerotic plaque seen in the bifurcation/proximal ICA region. 2. The common carotid artery PSV proximally is 70 cm/s and distally 60 cm/s. 3. The proximal internal carotid artery velocities are 59 cm/s systolic and 16 cm/s diastolic. 4. The proximal external carotid artery PSV is 101 cm/s. 5. The vertebral artery shows antegrade flow. 6. The subclavian artery waveforms are normal. US/US carotid duplex BI IMPRESSION: 1. RIGHT: Minimal, non-hemodynamically significant stenosis of the proximal right internal carotid artery corresponding to a 0-49% stenosis by velocity criteria. 2. LEFT: Minimal, non-hemodynamically significant stenosis of the proximal left internal carotid artery corresponding to a 0-49% stenosis by velocity criteria. 3. There is no change in the category severity of disease when compared to the previous study dated 08/05/2023. Electronically signed by: Dino Davila MD 09/19/2024 05:03 PM [facility]
== END 2024-09-17 14:56 | disposition home or self-care (01) ==
LOC: HO.US 14:55
PROVIDERS: PCP Internal Medicine; Visit Provider Internal Medicine
DX: H34.232 Retinal artery branch occlusion, left eye (principal); I65.23 Occlusion and stenosis of bilateral carotid arteries
CPT/HCPCS: 93880

== ENCOUNTER 2024-10-11 08:51 | Outpatient (AMB) | payer MEDICARE, SELFPAY ==
[2024-10-11 08:57] VITALS: BP 130/76; PULSE 65; BMI 28.1
--- NOTE | 2024-10-11 08:57 | MHC.OFFVIS ---
Vital Signs 10/11/24 08:57 Height 5 ft 3 in Weight 158 lb 11.725 oz BMI 28.1 BP 130/76 Blood Pressure Location Lt brachial Position Sitting Pulse 65 Intake Visit Reasons: Nonrheumatic mitral (valve) annulus calcification Intake Note: New patient Mitral valve calcification also had eye stroke recently with ekg having hip surgery next month Geology Professor Required: No Simulation Analyst: Simulation Analyst Present Accompanied by: Son Allergies fluoxetine Adverse Reaction (Severe, Verified 09/04/24 08:36) Agitated ancef Adverse Reaction (Uncoded 08/09/24 08:48) Anxiety Medication List - Last Reconciled 10/11/24 by Patric Zelaya MD aspirin (Adult Aspirin Regimen) 81 mg PO DAILY gabapentin 100 mg PO BEDTIME levothyroxine 112 mcg PO DAILY lorazepam 1 mg PO Q8H 90 days omeprazole 20 mg PO DAILY pravastatin 20 mg PO BEDTIME HPI Comments Details: Thank you for referring Gabrielle in cardiology consultation today after recent I event. In the emergency room was diagnose as central retinal vein occlusion although subsequent workup is suggestive of central retinal artery branch occlusion. She subsequently underwent a went workup shows mild bilateral carotid disease. She also underwent echocardiogram which shows severe mitral annular calcification without any significant abnormality of the Doppler. LV function is greater than 70%. She complains of exertional shortness of breath although denies any orthopnea, PND. Denies any exertional chest pain. She has limited activity due to her hip arthritis. She is scheduled to undergo hip replacement in November. She denies any lightheadedness, syncope. Denies any prolonged palpitation irregular heartbeat. She has been taking her aspirin for many years. This event happened while she was taking aspirin religiously. She is on low intensity statin therapy at this point time [facility] Medical History History of lymphoma Abnormal colonoscopy Follicular lymphoma Anxiety and depression Hypercholesteremia Hx of Kuldeep thyroiditis Surgical History Hx of right knee surgery History of right hip replacement No pertinent past surgical history Family History Paternal Aunt Breast cancer Social History Housing: House Alcohol intake: never Patient Tobacco Use Status: Former Tobacco user Tobacco use type: Cigarette Years Smoked: 25 years e-Cigarette/Vaping Use: Never Used service: No Current occupational status: retired Current occupation: Right hand dominate Cognitive needs: No Hearing needs: No Vision needs: Yes Review of Systems Const Denies chills, Denies daytime sleepiness, Denies fatigue, Denies fever(s), Denies frequent falls, Denies poor appetite, Denies snoring, Denies stops breathing during sleep, Denies weakness, Denies weight gain and Denies weight loss Eyes Denies loss of vision ENT Denies dizziness and Denies hearing loss Card Denies chest pain, Denies claudication, Denies leg edema, Denies lightheadedness, Denies palpitations, Denies dyspnea, Denies dyspnea on exertion and Denies orthopnea Resp Denies cough, Denies excessive phlegm production, Denies dyspnea, Denies dyspnea on exertion, Denies snoring and Denies wheezing GI Denies abdominal pain, Denies hematochezia, Denies change in bowel habits, Denies nausea and Denies vomiting Denies urinary frequency and Denies dysuria Musc Denies arthralgias, Denies muscle weakness, Denies numbness and Denies other (frequent falls) Skin/Breast Denies nail changes and Denies rash Neuro Denies Abnormal speech present, Denies dizziness, Denies frequent falls, Denies loss of vision, Denies memory loss, Denies numbness and Denies weakness Psych Denies depression and Denies memory loss Endo Denies fatigue and Denies palpitations John/Lymph Reports easy bruising and Reports other (anemia) Aller/Immun Denies wheezing Physical Exam Vital Signs: Last Vital Signs Pulse 65 10/11/24 08:57 BP 130/76 10/11/24 08:57 BMI result Body Mass Index 28.1 Const General: cooperative, comfortable, no acute distress, alert, awake, Physically active and well groomed Nutritional Appearance: average body habitus Orientation/consciousness: patient oriented x3 Limitations: no limitations HEENT Head: Yes normocephalic and Yes atraumatic Neck Neck: Yes trachea midline, Yes supple and Yes no JVD Resp Effort & Inspection: normal respiratory effort Auscultation: clear to auscultation bilaterally Cardio Jugular venous distension: no JVD Palpation: normal PMI Rate: regular rate Rhythm: regular rhythm Heart sounds: S1 normal heart sound present, S2 normal heart sound present, no click and no murmurs GI Auscultation: normal bowel sounds Skin General skin exam: no rashes or lesions noted Neuro General: patient oriented x3 and no focal motor deficits Speech: No Abnormal speech present Extrem General: Yes no clubbing, cyanosis or edema Psych Appearance: grossly normal Office Procedures EKG Details: EKG shows normal sinus rhythm with PAC with poor R-wave progression most likely due to lead placement. [id number], Complete Assessment & Plan Assessment & Plan (1) Preoperative cardiovascular examination: Code(s): Z01.810 - Encounter for preprocedural cardiovascular examination Category: Medical Plan: Preoperative cardiovascular risk stratification in this elderly woman to undergo hip surgery with symptoms of exertional shortness of breath with evidence of vascular disease in the carotid bed as well as severe mitral calcification. There is likelihood of underlying obstructive coronary artery disease which needs to be further investigated given her limited exercise capacity will pursue vasodilating myocardial perfusion imaging. This will be scheduled in near future. If this is within normal limits, her risk for perioperative cardiovascular risk is low. Recommend that aspirin can be withheld for 5-7 days prior to the procedure. Resume as soon as possible after procedure. Switching to high-intensity statin therapy, see below. (2) Mitral valve annular calcification: Code(s): I34.81 - Nonrheumatic mitral (valve) annulus calcification Category: Medical Plan: Presence of atherosclerotic disease in the carotid bed as well as severe mitral calcification, both could be reason for her to have arterial occlusion in the retinal arterial brnanch as well as noted lacunar infarct. Consider dual antiplatelet therapy at least for 6 months to 1 year given that she had her event while on aspirin therapy. I have also strongly recommend her to switch to high-intensity statin therapy. Have taken the liberty to switch her to Crestor 20 mg daily and follow-up lipid panel in 3-4 months time with target goal LDL closer to 55 mg/dL. She is encouraged to continue maintain activity level as tolerated. Advised to call me with new symptoms. Follow-up echocardiogram in 2 years time. Will follow up in the clinic in 2 years time, sooner p.r.n.. Thank you for allowing me to partake in her care Orders: Orders CA lexiscan stress w dariana Today Z01.810 - Encounter for preprocedural cardiovascular examination Lipid Panel 3 Months I65.23 - Occlusion and stenosis of bilateral carotid arteries Medications: New rosuvastatin 20 mg PO DAILY 30 tabs 5RF Z01.810 - Encounter for preprocedural cardiovascular examination Discontinued pravastatin Discontinued Reason: Doctor's Order 20 mg PO BEDTIME 90 tabs 1RF Coding Level of Care Code New Pt Level 4 (25648) Complex EM visit Add On G2211 Diagnoses Preoperative cardiovascular examination Z01.810 Mitral valve annular calcification I34.81 CPT Codes EKG - CPT: 72957-[id number], Complete ([id number])
--- OUTSIDE RECORDS SUMMARY | 2024-10-11 09:07 | XMS_ITS | Continuity of Care Document ---
Author Organization [facility] Address [address] [place] [id number] Care Team Providers Care Public Administration Professor Name Role Phone Hernan YANES, [facility] Primary Care Physician [phone] Encounter [facility] Date(s): 09/07/24 - 10/07/24 [facility] [address] [place] [id number] Attending Physician: Sugar Gutierrez Admitting Physician: Sugar Gutierrez Referring Physician: Admtr ArDeisi Encounter Type: Triage Allergies, Adverse Reactions, Alerts Substance Criticality Severity Reaction Reaction Severity Status Ancef Unable to assess criticality Persistent Severe Active Medications levothyroxine 112 mcg (0.112 mg) oral capsule 2 capsule = 224 mcg, By Mouth, Daily, # 60 capsule, 0 Refills, Maintenance, 04/28/20 9:11:00 AM EDT,Capsule Start Date: 04/28/20 Status: Ordered Quantity: 60.0 Unit: capsule Repeat number: 1 LORazepam 0.5 mg oral tablet 1 tablet = 0.5 mg, By Mouth, Every 8 hours, 0 Refills, Maintenance, 12/14/23 1:54:00 PM EDT, Partialfill upon patient request if the prescription is for a schedule II opioid drug. Start Date: 12/14/23 Status: Ordered Repeat number: 1 MiraLax Powder 1 pack/packet = 17 Gm, By Mouth, Daily, 0 Refills, Maintenance, 09/15/22 8:48:00 AM EST, Powder, Partial fill upon patient request if the prescription is for a schedule II opioid drug. Start Date: 09/15/22 Status: Ordered Repeat number: 1 Omeprazole = 20 mg, By Mouth, Daily, 0 Refills, Maintenance, 12/08/21 2:49:00 PM EST, Partial fill upon patient request if the prescription is for a schedule II opioid drug. Start Date: 12/08/21 Status: Ordered Repeat number: 1 pravastatin 10 mg oral tablet 1 tablet = 10 mg, By Mouth, Daily, # 30 tablet, 0 Refills, Maintenance, 07/01/16 8:05:46 AM EDT, Tablet Start Date: 07/01/16 Status: Ordered Quantity: 30.0 Unit: tablet Repeat number: 1 Problem List Condition Confirmation Course Effective Dates Status Health St atus Informant Follicular lymphoma Confirmed Active Hypothyroid Confirmed Active Social History Social History Type Response Smoking Status Former smoker, quit more than 30 days ago entered on: 12/14/23 Sex Sex Representation Female (finding) Laboratory * Event Display: Non Lab Results Authored Date: Radiology * Event Display: CT Scan Abdomen, Non- Authored Date: Patient Care team information Care Team Personnel Name: Sangita Rae Position: [facility] Onco RN Member Role: Primary Care Nurse Name: Sameera Stevenson MA Position: [facility] Onco RN Member Role: Primary Care Nurse Name: Terra Becerra MD Position: Reference Physician Member Role: PCP Address: [address] [place] [address] Telecom: Name: Linda Villarreal RN Position: [facility] Onco RN Member Role: Primary Care Nurse Name: Gabbi Wright RN Position: [facility] Onco RN Member Role: Primary Care Nurse Name: Zuleyka Melton RN Position: [facility] Onco RN Member Role: Primary Care Nurse Name: Lilia Hebert RN Position: [facility] OB RN Member Role: Primary Care Nurse Name: Karla Miller RN Position: S RN Member Role: Primary Care Nurse Care Team Related Persons Name: SIMONE BORGES Insurance Providers Guarantor name: FRANCO JONY Health Plan Information #: 1 Payer: MEDICARE PART B OUTPT Member Number: NA Policy Number: NA Group Number: NA Health Plan Information #: 2 Payer: MEDEX Member Number: NA Policy Number: NA Group Number: NA
== END 2024-10-11 09:56 | disposition home or self-care (01) ==
PROVIDERS: PCP Internal Medicine; Visit Provider Internal Medicine Cardiovascular Disease
DX: Z01.810 Encounter for preprocedural cardiovascular examination (principal); I34.81 Nonrheumatic mitral (valve) annulus calcification
CPT/HCPCS: 93010; 99214; G2211

== ENCOUNTER → 2024-10-11 08:51 | Outpatient (BNVA) | payer MEDICARE, SELFPAY | PROVIDERS: PCP Internal Medicine; Visit Provider Internal Medicine Cardiovascular Disease | DX: Z01.810 Encounter for preprocedural cardiovascular examination (principal); I34.81 Nonrheumatic mitral (valve) annulus calcification; R94.31 Abnormal electrocardiogram [ECG] [EKG] | CPT/HCPCS: 93005; 99212 ==

== ENCOUNTER → 2024-10-12 09:52 | Outpatient (REF) | payer MEDICARE, SELFPAY ==
--- NOTE | ~2024-10-12 | NM_ITS ---
Lexiscan Myocardial perfusion study Indication: Preoperative cardiovascular stratification Technique: The patient was brought in for a Lexiscan perfusion study on October 12, 2024 and was injected 0.4 mg of Lexiscan intravenously. Within a minute of this injection 25 mCi of sestamibi was given intravenously. Images were obtained using the SPECT gamma camera interlaced with the gating device. Images were obtained in supine position. Resting perfusion study was performed on October 15, 2024. Patient was administered 25 mCi of sestamibi intravenously at rest. Images were then obtained in supine position. Images obtained without without CT attenuation. Total DLP 85 mGy-cm. Images were processed with the software and compared side to side in short axis, horizontal long axis and vertical long axis views. Findings: The stress perfusion study showed nonattenuated images show mildly reduced uptake in the basal inferior as well as basal inferoseptal wall of the LV myocardium. Remainder of the LV myocardium is normally perfused. Attenuated corrected images show normal radiotracer in all segments of the LV myocardium. The gated study shows normal LV systolic function with calculated LVEF of greater than 65%. LV cavity is normal in size. The gated study shows normal systolic wall thickening and contraction of segments. Resting study shows no change in perfusion pattern compared to stress perfusion study. Gating at rest reveals normal systolic wall motion with ejection fraction at 69%. The findings are consistent with normal myocardial perfusion. NM/NM dariana perf SPECT rest & str Impression: 1. Myocardial perfusion imaging study shows normal myocardial perfusion 2. Gated LVEF is 69% 3. Transient ischemic dilatation not present Nondiagnostic changes on EKG. Electronically signed by: Patric Zelaya MD 10/15/2024 04:43 PM [facility] [place]
--- NOTE | 2024-10-12 09:55 | CA_ITS ---
Acquisition Time: 2024-10-12 10:00:43 Total Exercise Time: 00:02:00 Test Indications: Pre-Op Evaluation,Dyspnea Medications: ASA GABAPENTIN LEVOTHYROXINE LORAZAPAM OMEPRAZOLE PRAVASTATIN Protocol: LEXISCAN Max HR: 93 BPM 66% of Pred: 139 BPM Max BP: 142/68 mmHG Max Work Load: 1.0 METS Pharmacologic Stress Test with Lexiscan, while pt marches in the chair, with reports of SOB, no chest discomfort, with very frequent PACs, with normotensive response to injection. Nondiagnostic EKG for ischemia. In recovery, breathing returned to baseline. Nuclear images pending. Test reviewed with Dr. Neal. Referred By: Patric Zelaya Electronically Signed By: Evaristo Longoria
== END ==
LOC: HO.CARD 09:52
PROVIDERS: PCP Internal Medicine; Visit Provider Internal Medicine Cardiovascular Disease
DX: Z01.810 Encounter for preprocedural cardiovascular examination (principal)
CPT/HCPCS: 78452; 93017; A9500; J0280; J2785

== ENCOUNTER → 2024-10-12 09:55 | Outpatient (BNV) | payer MEDICARE, SELFPAY | PROVIDERS: PCP Internal Medicine | DX: R06.02 Shortness of breath (principal); I49.1 Atrial premature depolarization | CPT/HCPCS: 78452; 93016; 93018 ==

== ENCOUNTER 2024-10-31 09:44 | Outpatient (AMB) | payer MEDICARE, SELFPAY ==
[2024-10-31 09:48] VITALS: BP 148/84; PULSE 70; TEMP 36.5; O2SAT 96; BMI 28.5
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
== END 2024-10-31 11:11 | disposition home or self-care (01) ==
PROVIDERS: PCP Internal Medicine; Visit Provider Internal Medicine
DX: H34.232 Retinal artery branch occlusion, left eye (principal); Z01.818 Encounter for other preprocedural examination; M16.0 Bilateral primary osteoarthritis of hip; I34.81 Nonrheumatic mitral (valve) annulus calcification; E03.8 Other specified hypothyroidism; E78.9 Disorder of lipoprotein metabolism, unspecified; G47.9 Sleep disorder, unspecified; K21.9 Gastro-esophageal reflux disease without esophagitis; F41.1 Generalized anxiety disorder; F41.0 Panic disorder [episodic paroxysmal anxiety]

== ENCOUNTER 2024-10-31 09:44 | Outpatient (REF) | payer MEDICARE, SELFPAY ==
[2024-10-31 13:34] LABS: MANUAL DIFF FLAG NO
[2024-10-31 13:52] LABS: Basophils Percent Auto 0.4 % (0-2); Eosinophils Absolute Auto 0.1 X10*3/uL (0.0-0.4); Eosinophils Percent Auto 0.9 % (0-4); Hematocrit 34.2 % (37.0-47.0); Hemoglobin 11.5 g/dl (12.0-16.0); Imm Gran Abs Auto 0.01 X10*3/uL (0.00-0.03); Imm Gran Pct Auto 0.1 % (0.0-0.4); Lymphocytes Absolute Auto 1.4 X10*3/uL (1.2-4.9); Lymphocytes Percent Auto 21.1 % (20-40); Mean Corpuscular HGB Conc 33.6 g/dl (31.0-35.0); Mean Corpuscular Volume 95.3 fL (80.0-98.0); Mean Platelet Volume 10.3 fL (9.4-12.3); Monocytes Absolute Auto 0.4 X10*3/uL (0.1-1.2); Monocytes Percent Auto 5.3 % (2-11); Neutrophils Absolute Auto 4.9 x10*3/uL (2.0-8.3); Neutrophils Percent Auto 72.2 % (45-73); Platelet Count 276 X10*3/uL (160-400); Red Blood Count 3.59 X10*6/uL (4.20-5.50); Red Cell Distribution Width 13.1 % (11.0-16.0); White Blood Count 6.7 X10*3/uL (4.8-10.8)
[2024-10-31 14:14] LABS: Alanine Aminotransferase 15 U/L (0-31); Albumin Level 4.3 g/dL (3.5-5.0); Alkaline Phosphatase 50 U/L (39-117); Anion Gap 11 (12-20); Aspartate Amino Transferase 28 U/L (5-31); Bilirubin Total 0.5 mg/dL (0.0-1.0); Blood Urea Nitrogen 11 mg/dL (9-16); Calcium 9.2 mg/dL (8.4-10.2); Carbon Dioxide 27 mmol/L (22-29); Chloride 103 mmol/L (96-108); Estimated Glomerular Filt Rate > 60; Glucose Random 87 mg/dL (60-115); Sodium 137 mmol/L (135-145); Total Protein 6.7 g/dL (6.5-8.0)
[2024-10-31 14:30] LABS: TSH reflex Free T4 2.56 uIU/mL (0.32-4.0)
== END 2024-10-31 09:45 | disposition home or self-care (01) ==
LOC: HO.HMGCLDS 09:44
PROVIDERS: PCP Internal Medicine; Visit Provider Internal Medicine
DX: Z01.818 Encounter for other preprocedural examination (principal); H34.232 Retinal artery branch occlusion, left eye; M16.0 Bilateral primary osteoarthritis of hip; I34.81 Nonrheumatic mitral (valve) annulus calcification; E03.8 Other specified hypothyroidism; E78.9 Disorder of lipoprotein metabolism, unspecified; G47.9 Sleep disorder, unspecified; K21.9 Gastro-esophageal reflux disease without esophagitis; F41.1 Generalized anxiety disorder; F41.0 Panic disorder [episodic paroxysmal anxiety]
CPT/HCPCS: 36415; 80053; 84443; 85025; 93005; 99212

== ENCOUNTER 2024-12-09 14:13 | Emergency (ER) | payer MEDICARE, SELFPAY ==
--- NOTE | ~2024-12-09 | XR_ITS ---
CLINICAL HISTORY: constipation, abdominal pain Abdominal radiograph Comparison: None Findings: Prominent amount of air in the colon which measures up to 6.3 cm distally. Stool quantity is normal. No pneumoperitoneum or pneumatosis. No acute osseous or soft tissue abnormality. Impression: No increase in stool quantity to indicate constipation. Consider ileus. This document has been electronically signed by: Daija Davis MD on 12/09/2024 15:59:29
[2024-12-09 14:38] VITALS: BP 151/53; PULSE 74; RESP 20; TEMP 36.7; O2SAT 99; BMI 28.2
--- NOTE | 2024-12-09 14:45 | ED_ITS ---
HPI - General Adult General Chief complaint: Abdominal Pain Stated complaint: constipation Time Seen by Provider: 12/09/24 17:22 Source: patient and family Mode of arrival: ambulatory Limitations: no limitations History of Present Illness ED Provider: Dr. Layo Sanchez HPI narrative: 79-year-old female with a history of hyperlipidemia, anxiety lymphoma who presents emergency department for evaluation severe constipation , abdominal distension and abdominal pain. The patient had an elective left hip surgery 2 weeks prior and was taking tramadol for pain. She states that over the last 11 days she has only had very small bowel movements. She states that she was straining at the stool and had to self disimpact herself with despite this she still feels constipated, bloated and is having abdominal pain. She also tried a Fleet's enema at home with no relief of her symptoms. She states that she is not been eating much but she has been trying to drink fluids. She describes her abdominal pain is a bloated sensation which is constant but waxes and wanes in intensity. The patient states she stop taking her tramadol 1 week prior to evaluation. She denied fever, chills, chest pain, shortness of breath. She had nausea but no vomiting. She denied myalgias or arthralgias. Related Data Home Medications ?Medication ?Instructions ?Recorded ?Confirmed aspirin 81 mg tablet,delayed 81 mg PO DAILY 10/11/24 10/31/24 release (Adult Aspirin Regimen) sertraline 25 mg tablet 25 mg PO DAILY 10/31/24 10/31/24 Previous Rx's ?Medication ?Instructions ?Recorded lorazepam 1 mg tablet 1 mg PO Q8H 90 days #270 tabs 09/04/24 rosuvastatin 20 mg tablet 20 mg PO DAILY #30 tabs 10/11/24 omeprazole 20 mg capsule,delayed 20 mg PO DAILY #90 caps 11/06/24 release levothyroxine 112 mcg tablet 112 mcg PO DAILY #90 tabs 11/21/24 Allergies Allergy/AdvReac Type Severity Reaction Status Date / Time fluoxetine AdvReac Severe Agitated Verified 12/09/24 14:42 ancef AdvReac Anxiety Uncoded 08/09/24 08:48 Review of Systems 2 Review of Systems: Yes all other systems are reviewed and are negative PMFSH Past Medical History Medical History History of lymphoma Abnormal colonoscopy Follicular lymphoma Anxiety and depression Hypercholesteremia Hx of Kuldeep thyroiditis Surgical History Hx of right knee surgery History of right hip replacement No pertinent past surgical history Family History Family History Paternal Aunt Breast cancer Social History Social History Housing: House Alcohol intake: never Patient Tobacco Use Status: Former Tobacco user Tobacco use type: Cigarette Years Smoked: 25 years Smoked in Last 30 Days: No e-Cigarette/Vaping Use: Never Used Use of substances other than those prescribed or required for medical reasons: No Advance Directives: Yes Advance Directives on File: Yes Advance Directives Date on File: 06/21/24 Do you have a plan to hurt others: No Plan service: No Current occupational status: retired Current occupation: Right hand dominate Cognitive needs: No Hearing needs: No Vision needs: Yes Physical Exam ED Vital Signs: Vital Signs - 24 hr 12/09/24 20:32 12/09/24 20:37 Temperature 97.3 F 97.3 F Pulse Rate 69 69 Respiratory Rate 16 16 Blood Pressure 154/70 H 154/70 H Pulse Oximetry 99 99 Oxygen Delivery Method Room Air Room Air BMI result Body Mass Index 28.2 Vital signs revealed an elevated blood pressure 154/70 otherwise unremarkable. Exam: General: Awake, alert in no distress Head: Normocephalic, atraumatic EENT: PERRL, Lids normal, sclera normal, conjunctiva normal, nose normal , ears normal, throat without erythema or exudates Neck: Supple, no adenopathy Lung: breath sounds symmetric, no wheezing, rales or rhonchi Chest: symmetric movement, nontender Heart: regular rate and rhythm, normal S1, S2 no murmurs or rubs Abdomen: Soft, distended, normal bowel sounds, moderate diffuse tenderness with no localizing tenderness, no rebound, no voluntary or involuntary guarding Rectal: No stool and the patient's rectum, no impaction Back: no vertebral tenderness, no CVAT Extremities: no deformities, moves all extremities symmetrically Neuro: Awake, alert, oriented, normal speech, cranial nerves intact, moves all extremities symmetrically Psych: Pleasant, cooperative Course Course Course Narrative: RME: 79-year-old female status post hip replacement surgery presents to ED for 11 days. Patient states epigastric abdominal pain. Patient states no relief with constipation medications. Patient denies any nausea vomiting. Patient states abdomen distended. Positive epigastric tenderness on palpation. Negative for hyperactive bowel sounds. Labs KUB EKG ordered Medical Decision Making Medical Decision Making [facility] Narrative: 79-year-old female with a history of hyperlipidemia, anxiety lymphoma who presents emergency department for evaluation severe constipation , abdominal distension and abdominal pain Times 11 days weighs or food intake but she has been able to drink fluids. Patient describes her pain as a bloated sensation. The patient states she disimpacted herself in gave herself a Fleet's enema with no relief for symptoms. The patient had an elective left it repair 2 weeks prior and was taking tramadol. She stop taking tramadol 1 week prior. Differential diagnosis: Includes but is not limited to Constipation, obstipation, rectal impaction, opiate induced constipation, bowel obstruction, anemia, electrolyte abnormalities Course: my independent interpretation of the patient's laboratory evaluation is as follows: Normocytic anemia with an H&H of 8.9 and 26.0 compared to an H&H of 11.5 and 34.2 on 10/31/2024. This anemia is most likely related to her recent hip surgery. CMP was normal. Patient's KUB revealed increased gas pattern otherwise unremarkable. The patient was given high soapsuds enema with good affect. The patient did have a large bowel movement and states she was feeling better therefore she was discharged home. Patient was advised to continue taking her MiraLax . She was given Colace after surgery but she was not taking this medication, I told her to take her Colace as directed. Patient was advised to take extra-strength Senokot 2 pills twice a day as needed for constipation. I told her that she should not take this for more than 4 days in a row. Patient was given printed and verbal instructions and discharged home. Admission/Observation Consideration of admission/observation: Escalation of care including admission/observation considered ( Yes) Lab Data [facility] Lab Attestation statement: I reviewed the patient's lab results. 12/09/24 15:01 12/09/24 15:01 Labs: Lab Results 12/09/24 Range/Units 15:01 WBC 6.5 (4.8-10.8) X10*3/uL RBC 2.70 L D (4.20-5.50) X10*6/uL Hgb 8.9 L D (12.0-16.0) g/dl Hct 26.0 L D (37.0-47.0) % MCV 96.3 (80.0-98.0) fL MCH 33.0 (27.0-33.0) pg MCHC 34.2 (31.0-35.0) g/dl RDW 14.1 (11.0-16.0) % Plt Count 525 H D (160-400) X10*3/uL MPV 8.5 L (9.4-12.3) fL Immature Gran % (Auto) 0.5 H (0.0-0.4) % Neut % (Auto) 75.4 H (45-73) % Lymph % (Auto) 16.0 L (20-40) % [place] % (Auto) 7.0 (2-11) % Eos % (Auto) 0.6 (0-4) % Baso % (Auto) 0.5 (0-2) % Lymph # (Auto) 1.0 L (1.2-4.9) X10*3/uL [place] # (Auto) 0.5 (0.1-1.2) X10*3/uL Eos # (Auto) 0.0 (0.0-0.4) X10*3/uL Baso # (Auto) 0.0 (0.0-0.2) X10*3/uL Abs Immat Gran (auto) 0.03 (0.00-0.03) X10*3/uL Absolute Neuts (auto) 4.9 (2.0-8.3) x10*3/uL Absolute Nucleated RBC 0.000 (0.0-0.012) X10*3/uL Nucleated RBC % (auto) 0.0 (0.0-0.2) /100WBC Sodium 141 (135-145) mmol/L Potassium 3.3 (3.3-5.1) mmol/L Chloride 106 (96-108) mmol/L Carbon Dioxide 26 (22-29) mmol/L Anion Gap 12 (12-20) BUN 9 (9-16) mg/dL Creatinine 0.68 (0.5-1.4) mg/dL Estim Creat Clear Calc 61.7 Estimated GFR > 60 Random Glucose 93 (60-115) mg/dL Calcium 8.5 D (8.4-10.2) mg/dL Total Bilirubin 0.6 (0.0-1.0) mg/dL AST 28 (5-31) U/L ALT 19 (0-31) U/L Alkaline Phosphatase 83 (39-117) U/L Troponin I High Sens 6.5 D (<3.5-17.0) ng/L Total Protein 6.2 L (6.5-8.0) g/dL Albumin 3.7 (3.5-5.0) g/dL Lipase 30 (8-78) U/L Independent Interpretation I performed an independent interpretation of an: EKG Interpretation: my independent interpretation patient's 12 EKG done on 12/09/2024 at 14:54 hours is as follows: Normal sinus rhythm with a rate of 73, normal MD interval, QRS duration QTC interval, no ST segment elevation, no ST segment depression, no significant T-wave abnormalities. Radiology Impression Discussion of test interpretation with radiology: I have reviewed the radiologist's reading. Radiologist Impression: Abdominal radiograph Comparison: None Findings: Prominent amount of air in the colon which measures up to 6.3 cm distally. Stool quantity is normal. No pneumoperitoneum or pneumatosis. No acute osseous or soft tissue abnormality. Impression: No increase in stool quantity to indicate constipation. Consider ileus. This document has been electronically signed by: Daija Davis MD on 12/09/2024 15:59:29 Dictated By: Daija Ramirez MD Independent Historian Clinical information obtained from an independent historian. History obtained from or confirmed by: Other ( Daughter) Chronic Conditions Patient?s care impacted by: Other ( hyperlipidemia) Discharge Plan Discharge Clinical Impression: Acute constipation Patient Disposition: Home, Self-Care Instructions: Constipation (ED) Additional Instructions: your blood work did reveal mild anemia but this is most likely caused by your surgery. I want you to take a multivitamin with iron daily for the next 3 months and this should help improve your blood counts. The x-ray of your abdomen revealed large amount of gas but no evidence for bowel obstructions your constipation he was caused by the tramadol. Do not start taking this medication again. You can take Tylenol 500 mg pills, 2 pills every 6 hours as needed for pain continue taking the MiraLax and also take the Colace as prescribed Follow-up with your doctor in 2 days. Please return to the emergency department if your symptoms get worse or if you develop any symptoms that are concerning to you. Prescriptions: No Action omeprazole 20 mg capsule,delayed release(DR/EC) 20 mg PO DAILY Qty: 90 0RF Rx Instructions: Take it at night on empty stomach levothyroxine 112 mcg tablet 112 mcg PO DAILY Qty: 90 2RF sertraline 25 mg tablet 25 mg PO DAILY aspirin [Adult Aspirin Regimen] 81 mg tablet,delayed release (DR/EC) 81 mg PO DAILY rosuvastatin 20 mg tablet 20 mg PO DAILY Qty: 30 5RF lorazepam 1 mg tablet 1 mg PO Q8H 90 Days Qty: 270 0RF Interventions: ED Discharge Assessment Last Done: 12/09/24 20:37 Discharge Date/Time: 12/09/24 20:40 Print Language: Pashto
--- NOTE | 2024-12-09 14:46 | ECG_ITS ---
Test Reason : abd pain Blood Pressure : */* mmHG Vent. Rate : 73 BPM Atrial Rate : 73 BPM P-R Int : 146 ms QRS Dur : 82 ms QT Int : 430 ms P-R-T Axes : 54 -13 49 degrees QTcB Int : 473 ms Normal sinus rhythm Normal ECG When compared with ECG of 12-Aug-2024 09:24, T wave amplitude has decreased in Anterior leads Referred By: Artem Ford Electronically Signed By: TRE OLSEN
[2024-12-09 15:05] LABS: MANUAL DIFF FLAG NO
[2024-12-09 15:08] LABS: Basophils Percent Auto 0.5 % (0-2); Eosinophils Percent Auto 0.6 % (0-4); Hemoglobin 8.9 g/dl (12.0-16.0); Imm Gran Abs Auto 0.03 X10*3/uL (0.00-0.03); Imm Gran Pct Auto 0.5 % (0.0-0.4); Mean Corpuscular HGB Conc 34.2 g/dl (31.0-35.0); Mean Corpuscular Volume 96.3 fL (80.0-98.0); Mean Platelet Volume 8.5 fL (9.4-12.3); Monocytes Absolute Auto 0.5 X10*3/uL (0.1-1.2); Neutrophils Absolute Auto 4.9 x10*3/uL (2.0-8.3); Neutrophils Percent Auto 75.4 % (45-73); Platelet Count 525 X10*3/uL (160-400); Red Cell Distribution Width 14.1 % (11.0-16.0); White Blood Count 6.5 X10*3/uL (4.8-10.8)
[2024-12-09 15:21] LABS: Alanine Aminotransferase 19 U/L (0-31); Albumin Level 3.7 g/dL (3.5-5.0); Alkaline Phosphatase 83 U/L (39-117); Anion Gap 12 (12-20); Aspartate Amino Transferase 28 U/L (5-31); Bilirubin Total 0.6 mg/dL (0.0-1.0); Blood Urea Nitrogen 9 mg/dL (9-16); Calcium 8.5 mg/dL (8.4-10.2); Carbon Dioxide 26 mmol/L (22-29); Chloride 106 mmol/L (96-108); Creatinine Clr Calc Pharmacy 61.7; Estimated Glomerular Filt Rate > 60; Glucose Random 93 mg/dL (60-115); Lipase 30 U/L (8-78); Potassium 3.3 mmol/L (3.3-5.1); Sodium 141 mmol/L (135-145); Total Protein 6.2 g/dL (6.5-8.0)
[2024-12-09 15:28] LABS: Troponin-I High Sensitivity 6.5 ng/L (<3.5-17.0)
--- OUTSIDE RECORDS SUMMARY | 2024-12-09 17:54 | XMS_ITS | Continuity of Care Document ---
Author Organization [facility] Address [address] [place] [id number]- Care Team Providers Care Human Resources Manager Name Role Phone Hernan YANES, Terra Primary Care Physician [id number] Date(s): 09/07/24 - 11/13/24 [facility] [address] [place] [id number] Discharge Disposition: A-D/C Home Attending Physician: Mehdi YANES(Hem/Onc), Andrez Rojas Admitting Physician: Mehdi YANES(Hem/Onc), Andrez Rojas Referring Physician: Terra Becerra MD Encounter Type: Disch Recurring OP Allergies, Adverse Reactions, Alerts Substance Criticality Severity [...] Follicular lymphoma Confirmed Active Hypothyroid Confirmed Active Vital Signs Most recent to oldest [Reference Range]: 1 Height 159 cm (09/13/24 10:43 AM) Weight 71.5 kg (09/13/24 10:43 AM) Oxygen Saturation [94-100 %] 98 % (09/13/24 10:43 AM) Pulse Rate [55-90 bpm] 71 bpm (09/13/24 10:43 AM) Body Mass Index [18.5-24.99 kg/m2] 28.28 kg/m2 *H* (09/13/24 10:43 AM) Blood Pressure [90-138/55-84 mm Hg] 163/ 70mm Hg *H* (09/13/24 10:43 AM) Temperature [96.8-100.4 DegF] 98.4 DegF (09/13/24 10:43 AM) Mode of Delivery (Oxygen) Room air (09/13/24 10:43 AM) Blood pressure sites Arm, right (09/13/24 10:43 AM) Temperature Route Oral (09/13/24 10:43 AM) Dry Weight 71.5 kg (09/13/24 10:43 AM) Weight Obtained Via Standing scale (09/13/24 10:43 AM) Dry Weight Obtained Via Standing scale (09/13/24 10:43 AM) Social History Social History Type Response Smoking Status Former smoker, quit more than 30 days ago entered on: 12/14/23 Sex Sex Representation Female (finding) Patient Care team information Care Team Personnel Name: Sangita Rae Position: S Onco RN Member Role: Primary Care Nurse Name: Sameera Stevenson [place] Position: [facility] Onco RN Member Role: Primary Care Nurse Name: Hernan YANES, Terra Position: Reference Physician Member Role: PCP Address: [address] [place] [address]- [place] Telecom: Name: Linda Villarreal RN Position: [facility] Onco RN Member Role: Primary Care Nurse Name: Gabbi Wright RN Position: [facility] Onco RN Member Role: Primary Care Nurse Name: Zuleyka Melton RN Position: [facility] Onco RN Member Role: Primary Care Nurse Name: Lilia Hebert RN Position: [facility] OB RN Member Role: Primary Care Nurse Name: Karla Miller RN Position: [facility] RN Member Role: Primary Care Nurse Name: Mehdi YANES(Hem/Onc), Andrez Rojas Position: [facility] Physician - Oncology Med Service: Hematology & Oncology Member Role: Admitting Physician Address: [address] [facility] [place] [address]- Telecom: Care Team Related Persons Name: SIMONE BORGES Insurance Providers Guarantor name: FRANCO BORGES Health Plan Information #: 1 Payer: MEDICARE PART B OUTPT Member Number: [id number] Policy Number: NA Group Number: [id number] Health Plan Information #: 2 Payer: MEDEX Member Number: [id number] Policy Number: NA Group Number: [id number]
[2024-12-09 18:08] VITALS: BP 154/54; PULSE 76; RESP 14; O2SAT 98
--- NOTE | 2024-12-09 19:17 | PC.NURSE ---
pt had BM in commode, feels she is all done
[2024-12-09 20:32] VITALS: BP 154/70; PULSE 69; RESP 16; TEMP 36.3; O2SAT 99
[2024-12-09 20:37] VITALS: BP 154/70; PULSE 69; RESP 16; TEMP 36.3; O2SAT 99
== END 2024-12-09 20:40 | disposition home or self-care (01) ==
PROVIDERS: Physician Assistant; Emergency Provider Emergency Medicine Emergency Medical Services; PCP Internal Medicine
DX: K59.00 Constipation, unspecified (principal); R14.0 Abdominal distension (gaseous); Z87.891 Personal history of nicotine dependence; Z79.899 Other long term (current) drug therapy
CPT/HCPCS: 36415; 74018; 80053; 83690; 84484; 85025; 93005; 99283; 99284; 99285

== ENCOUNTER → 2024-12-09 14:44 | Outpatient (BNV) | payer MEDICARE, SELFPAY | PROVIDERS: PCP Internal Medicine; Visit Provider Radiology Diagnostic Radiology | DX: K59.00 Constipation, unspecified (principal); R10.9 Unspecified abdominal pain | CPT/HCPCS: 74018 ==

== ENCOUNTER → 2024-12-09 14:46 | Outpatient (BNV) | payer MEDICARE, SELFPAY | PROVIDERS: Emergency Provider Emergency Medicine Emergency Medical Services; PCP Internal Medicine; Visit Provider Internal Medicine | DX: R10.9 Unspecified abdominal pain (principal) | CPT/HCPCS: 93010 ==

== ENCOUNTER 2025-01-08 08:20 | Outpatient (REF) | payer MEDICARE, SELFPAY ==
[2025-01-08 10:33] LABS: Alanine Aminotransferase 10 U/L (0-31); Albumin Level 4.2 g/dL (3.5-5.0); Alkaline Phosphatase 73 U/L (39-117); Anion Gap 11 (12-20); Aspartate Amino Transferase 25 U/L (5-31); Bilirubin Total 0.4 mg/dL (0.0-1.0); Blood Urea Nitrogen 17 mg/dL (9-16); Calcium 9.3 mg/dL (8.4-10.2); Carbon Dioxide 28 mmol/L (22-29); Chloride 106 mmol/L (96-108); Cholesterol 143 mg/dL (<200); Estimated Glomerular Filt Rate > 60; Glucose Fasting 86 mg/dL (60-99); HDL Cholesterol 76 mg/dL (>40); LDL Cholesterol Calculated 57 mg/dL (<100); Sodium 141 mmol/L (135-145); Total Protein 6.3 g/dL (6.5-8.0); Triglycerides 54 mg/dL (<150)
[2025-01-08 10:50] LABS: Ferritin 85 ng/mL (10-250); TSH reflex Free T4 3.15 uIU/mL (0.32-4.0)
== END 2025-01-08 08:21 | disposition home or self-care (01) ==
LOC: HO.HMGCLDS 08:20
PROVIDERS: PCP Internal Medicine; Visit Provider Internal Medicine
DX: F41.1 Generalized anxiety disorder (principal); F42.2 Mixed obsessional thoughts and acts; R94.4 Abnormal results of kidney function studies; E03.8 Other specified hypothyroidism; E78.9 Disorder of lipoprotein metabolism, unspecified; G47.9 Sleep disorder, unspecified; E55.9 Vitamin D deficiency, unspecified; K21.9 Gastro-esophageal reflux disease without esophagitis; I65.23 Occlusion and stenosis of bilateral carotid arteries; C82.81 Other types of follicular lymphoma, lymph nodes of head, face, and neck; Z79.899 Other long term (current) drug therapy
CPT/HCPCS: 36415; 80053; 80061; 82728; 84443; 99212

== ENCOUNTER 2025-01-08 08:20 | Outpatient (AMB) | payer MEDICARE, SELFPAY ==
--- NOTE | 2025-01-08 08:23 | A.OFFPC_ITS ---
Vital Signs 01/08/25 08:25 Height 5 ft 3 in Weight 150 lb BMI 26.6 BP 116/64 Blood Pressure Location Rt brachial Position Sitting Respiration 16 Pulse 67 Pulse Source Pulse Oximeter Temp 97.8 F Temp Source Oral Pulse Oximetry (%) 97 Oxygen Delivery Method Room Air Intake Visit Reasons: 3 months f/up Allergies fluoxetine Adverse Reaction (Severe, Verified 01/08/25 08:25) Agitated ancef Adverse Reaction (Uncoded 01/08/25 08:25) Anxiety Medication List - Last Reconciled 01/08/25 by Terra Becerra MD aspirin (Adult Aspirin Regimen) 81 mg PO DAILY cholecalciferol (vitamin D3) 25 mcg PO DAILY levothyroxine 112 mcg PO DAILY lorazepam 1 mg PO Q8H 90 days omeprazole 20 mg PO DAILY rosuvastatin 20 mg PO DAILY sertraline 25 mg PO DAILY Tobacco use date assessed: 01/08/25 Fall risk assessment: No Falls in past year Last assessed Fall Risk: 01/08/25 Dental Screening Dental Screen Date: 01/08/25 Did you have a dental visit in the last 12 months?: Yes Did you have a dental problem in the last 6 months where you did not have access to dental care?: No Was dental information given to patient?: Patient has dentist HPI 3 months f/up HPI Details History - The patient is an 79-year-old female p resenting for regular three-month follow-up appointment She has a history of anxiety, OCD, difficulty sleeping, hypothyroidism, GERD, lipid disorder, osteoarthritis bilateral hip Decent had left hip surgery and is doing well still using cane - Recently commenced rosuvastatin 20 mg under guidance from the metal cabinet finisher for cholesterol. - Managing anxiety with sertraline start ed by neurologist, patient is also on lorazepam chronically for anxiety panic and OCD disorder - Anemia noted with a hemoglobin level o f 8.9 in December, potentially linked to surgical recovery. Declines iron supplements due to prior constipation issues. - Recent hip replacement surgery perform ed on November 22 has alleviated some of the back pain. Spinal Anesthesia was challenging during the procedure. - Left eye vision deficiency complicates driving, creating safety concerns due to blind spots. - Chronic lower back pain predominantly addressed through successful hip replacement, with persisting symptoms managed without medication. Problem List - Hyperlipidemia - Anxiety - Hemoglobin deficiency (Anemia) - Low vision in the left eye - Chronic lower back pain - Post-surgical status: hip replacement - hypothyroidism - chronic GERD - panic disorder - OCD Patient Instructions - Prescription refills have been managed ; ensure compliance with rosuvastatin and sertraline. - Schedule a follow-up for CBC and lipid panel as discussed. - Incorporate iron-rich foods, like live r, into diet instead of iron supplements due to constipation concerns. - Be cautious while driving due to visio n impairment on the left side. - Ensure any upcoming appointments are a ligned with your medication needs and manage regular check-ups. Review of Systems - General: No fever no chills - Neurological: No headaches no dizziness - Ear nose throat: No sore throat no hearing difficulty no ear pain - Cardiovascular: No syncope, no chest pain, no palpitations - Gastrointestinal: No nausea vomiting or diarrhea - Endocrine: No polyuria polydipsia no heat intolerance - Genitourinary: No dysuria , no blood in urine Physical Exam General: No acute distress HEENT: No acute findings Neck: Supple Respiratory system: Able to talk in full sentences, no audible wheeze Cardiovascular: S1-S2 regular in rate and rhythm Gastrointestinal: No pain Extremities: No new findings 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[employer] ROOM: Alert awake oriented x3 motor sensory intact, uses cane for ambulation Skin: Normal turgor PFSH Medical History History of lymphoma Abnormal colonoscopy Follicular lymphoma Anxiety and depression Hypercholesteremia Hx of Kuldeep thyroiditis Surgical History Hx of right knee surgery History of right hip replacement No pertinent past surgical history Family History Paternal Aunt Breast cancer Social History Housing: House Alcohol intake: never Patient Tobacco Use Status: Former Tobacco user Tobacco use type: Cigarette Years Smoked: 25 years e-Cigarette/Vaping Use: Never Used Advance Directives Date on File: 06/21/24 service: No Current occupational status: retired Current occupation: Right hand dominate Cognitive needs: No Hearing needs: No Vision needs: Yes Questionnaire Thrive Questionnaire Date Thrive assessed: 06/20/24 CAROL-7 AMB Questionnaire CAROL-7 Date CAROL - 7 assessed: 06/20/24 Source: Developed by Drs. Derick Blood, Denice Murillo, Heber Patino and colleagues, with an educational jeffrey from [employer]. Physical exam (Primary Care) Vital Signs: Last Vital Signs Temp 97.8 F 01/08/25 08:25 Pulse 67 01/08/25 08:25 Resp 16 01/08/25 08:25 BP 116/64 01/08/25 08:25 Pulse Ox 97 01/08/25 08:25 Oxygen Delivery Method Room Air 01/08/25 08:25 BMI result Body Mass Index 26.6 Tobacco/Smoking Status: Tobacco use Status Tobacco use date assessed 01/08/25 01/08/25 08:29 Patient Tobacco Use Status Former Tobacco user 01/08/25 08:24 Tobacco use type Cigarette 01/08/25 08:24 e-Cigarette/Vaping Use Never Used 01/08/25 08:24 Thrive Assessment: Date of Thrive Assessment Date Thrive assessed 06/20/24 01/08/25 08:24 Coding Level of Care Code Est Pt Level 4 (55078) Complex EM visit Add On G2211 Diagnoses Anxiety, generalized F41.1 Mixed obsessional thoughts and acts F42.2 Obsessive-compulsive disorder type: mixed obsessional thoughts and acts Decreased GFR R94.4 Other specified hypothyroidism E03.8 Lipid disorder E78.9 Difficulty sleeping G47.9 Vitamin D deficiency E55.9 Chronic GERD K21.9 Bilateral carotid artery stenosis I65.23 Laterality: bilateral 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 Follicular lymphoma type: other follicular type Lymphoma site: head Assessment & Plan Assessment & Plan (1) Anxiety, generalized: Comment: Patient is aware of side effects like , this medication has a risk of being habit forming, slowing of relfexes, dizziness, and its controlled in nature, will need 3 M visit Code(s): F41.1 - Generalized anxiety disorder Category: Medical (2) Obsessive compulsive disorder: Code(s): F42.9 - Obsessive-compulsive disorder, unspecified Category: Medical Qualifiers: Obsessive-compulsive disorder type: mixed obsessional thoughts and acts Qualified Code(s): F42.2 - Mixed obsessional thoughts and acts (3) Decreased GFR: Code(s): R94.4 - Abnormal results of kidney function studies Category: Medical (4) Other specified hypothyroidism: Code(s): E03.8 - Other specified hypothyroidism Category: Medical (5) Lipid disorder: Code(s): E78.9 - Disorder of lipoprotein metabolism, unspecified Category: Medical (6) Difficulty sleeping: Code(s): G47.9 - Sleep disorder, unspecified Category: Medical (7) Vitamin D deficiency: Code(s): E55.9 - Vitamin D deficiency, unspecified Category: Medical (8) Chronic GERD: Code(s): K21.9 - Gastro-esophageal reflux disease without esophagitis Category: Medical (9) Carotid artery stenosis: Code(s): I65.29 - Occlusion and stenosis of unspecified carotid artery Category: Medical Qualifiers: Laterality: bilateral Qualified Code(s): I65.23 - Occlusion and stenosis of bilateral carotid arteries (10) Follicular lymphoma: Code(s): C82.90 - Follicular lymphoma, unspecified, unspecified site Category: Medical Qualifiers: Follicular lymphoma type: other follicular type Lymphoma site: head Qualified Code(s): C82.81 - Other types of follicular lymphoma, lymph nodes of head, face, and neck Plan History - The patient is an 79-year-old female presenting for regular three-month follow-up appointment She has a history of anxiety, OCD, difficulty sleeping, hypothyroidism, GERD, lipid disorder, osteoarthritis bilateral hip, follicular lymphoma, reduced GFR, carotid artery stenosis Decent had left hip surgery and is doing well still using cane - Recently commenced rosuvastatin 20 mg under guidance from the metal cabinet finisher for cholesterol. - Managing anxiety with sertraline started by neurologist, patient is also on lorazepam chronically for anxiety panic and OCD disorder - Anemia noted with a hemoglobin level of 8.9 in December, potentially linked to surgical recovery. Declines iron supplements due to prior constipation issues. - Recent hip replacement surgery performed on November 22 has alleviated some of the back pain. Spinal Anesthesia was challenging during the procedure. - Left eye vision deficiency complicates driving, creating safety concerns due to blind spots. - Chronic lower back pain predominantly addressed through successful hip replacement, with persisting symptoms managed without medication. Problem List - Hyperlipidemia - Anxiety - Hemoglobin deficiency (Anemia) - Low vision in the left eye - Chronic lower back pain - Post-surgical status: hip replacement - hypothyroidism - chronic GERD - panic disorder - OCD Patient Instructions - Prescription refills have been managed; ensure compliance with rosuvastatin and sertraline. - Schedule a follow-up for CBC and lipid panel as discussed. - Incorporate iron-rich foods, like liver, into diet instead of iron supplements due to constipation concerns. - Be cautious while driving due to vision impairment on the left side. - Ensure any upcoming appointments are aligned with your medication needs and manage regular check-ups. Orders: Orders Comprehensive [place]. Panel Fast Today C82.81 - Other types of follicular lymphoma, lymph nodes of head, face, and neck, E03.8 - Other specified hypothyroidism, E55.9 - Vitamin D deficiency, unspecified, E78.9 - Disorder of lipoprotein metabolism, unspecified, F41.1 - Generalized anxiety disorder, F42.2 - Mixed obsessional thoughts and acts, G47.9 - Sleep disorder, unspecified, I65.23 - Occlusion and stenosis of bilateral carotid arteries, K21.9 - Gastro- esophageal reflux disease without esophagitis, R94.4 - Abnormal results of kidney function studies TSH reflex Free T4 Today C82.81 - Other types of follicular lymphoma, lymph nodes of head, face, and neck, E03.8 - Other specified hypothyroidism, E55.9 - Vitamin D deficiency, unspecified, E78.9 - Disorder of lipoprotein metabolism, unspecified, F41.1 - Generalized anxiety disorder, F42.2 - Mixed obsessional thoughts and acts, G47.9 - Sleep disorder, unspecified, I65.23 - Occlusion and stenosis of bilateral carotid arteries, K21.9 - Gastro-esophageal reflux disease without esophagitis, R94.4 - Abnormal results of kidney function studies Ferritin Today C82.81 - Other types of follicular lymphoma, lymph nodes of head, face, and neck, E03.8 - Other specified hypothyroidism, E55.9 - Vitamin D deficiency, unspecified, E78.9 - Disorder of lipoprotein metabolism, unspecified, F41.1 - Generalized anxiety disorder, F42.2 - Mixed obsessional thoughts and acts, G47.9 - Sleep disorder, unspecified, I65.23 - Occlusion and stenosis of bilateral carotid arteries, K21.9 - Gastro-esophageal reflux disease without esophagitis, R94.4 - Abnormal results of kidney function studies Lipid Panel Today C82.81 - Other types of follicular lymphoma, lymph nodes of head, face, and neck, E03.8 - Other specified hypothyroidism, E55.9 - Vitamin D deficiency, unspecified, E78.9 - Disorder of lipoprotein metabolism, unspecified, F41.1 - Generalized anxiety disorder, F42.2 - Mixed obsessional thoughts and acts, G47.9 - Sleep disorder, unspecified, I65.23 - Occlusion and stenosis of bilateral carotid arteries, K21.9 - Gastro-esophageal reflux disease without esophagitis, R94.4 - Abnormal results of kidney function studies Medications: New sertraline 25 mg PO DAILY 90 tabs 1RF Refilled lorazepam 1 mg PO Q8H 270 tabs 0RF 90 days rosuvastatin 20 mg PO DAILY 90 tabs 1RF Z01.810 - Encounter for preprocedural cardiovascular examination
[2025-01-08 08:25] VITALS: BP 116/64; PULSE 67; RESP 16; TEMP 36.6; O2SAT 97; BMI 26.6
== END 2025-01-08 08:49 | disposition home or self-care (01) ==
LOC: HO.HMCC 08:20
PROVIDERS: PCP Internal Medicine; Visit Provider Internal Medicine
DX: R94.4 Abnormal results of kidney function studies (principal); F41.1 Generalized anxiety disorder; F42.2 Mixed obsessional thoughts and acts; C82.81 Other types of follicular lymphoma, lymph nodes of head, face, and neck; E03.8 Other specified hypothyroidism; E78.9 Disorder of lipoprotein metabolism, unspecified; G47.9 Sleep disorder, unspecified; E55.9 Vitamin D deficiency, unspecified; K21.9 Gastro-esophageal reflux disease without esophagitis; I65.23 Occlusion and stenosis of bilateral carotid arteries

== ENCOUNTER 2025-04-12 08:09 | Outpatient (REF) | payer MEDICARE, SELFPAY ==
[2025-04-12 10:42] LABS: MANUAL DIFF FLAG NO
[2025-04-12 10:48] LABS: Hematocrit 33.6 % (37.0-47.0); Hemoglobin 10.9 g/dl (12.0-16.0); Imm Gran Abs Auto 0.01 X10*3/uL (0.00-0.03); Imm Gran Pct Auto 0.2 % (0.0-0.4); Lymphocytes Absolute Auto 1.3 X10*3/uL (1.2-4.9); Mean Corpuscular HGB Conc 32.4 g/dl (31.0-35.0); Mean Corpuscular Hemoglobin 30.2 pg (27.0-33.0); Mean Corpuscular Volume 93.1 fL (80.0-98.0); NRBC Abs Auto 0.000 X10*3/uL (0.0-0.012); NRBC Pct Auto 0.0 /100WBC (0.0-0.2); Platelet Count 254 X10*3/uL (160-400); Red Blood Count 3.61 X10*6/uL (4.20-5.50); White Blood Count 5.2 X10*3/uL (4.8-10.8)
[2025-04-12 11:09] LABS: Alanine Aminotransferase 18 U/L (0-31); Albumin Level 4.4 g/dL (3.5-5.0); Alkaline Phosphatase 57 U/L (39-117); Anion Gap 12 (12-20); Aspartate Amino Transferase 29 U/L (5-31); Blood Urea Nitrogen 18 mg/dL (9-16); Calcium 9.1 mg/dL (8.4-10.2); Carbon Dioxide 29 mmol/L (22-29); Chloride 104 mmol/L (96-108); Estimated Glomerular Filt Rate > 60; Potassium 4.8 mmol/L (3.3-5.1); Sodium 140 mmol/L (135-145); Total Protein 6.3 g/dL (6.5-8.0)
[2025-04-12 11:40] LABS: Ferritin 26 ng/mL (10-250)
== END 2025-04-12 08:10 | disposition home or self-care (01) ==
LOC: HO.HMGCLDS 08:09
PROVIDERS: PCP Internal Medicine; Visit Provider Internal Medicine
DX: Z00.00 Encounter for general adult medical examination without abnormal findings (principal); G47.9 Sleep disorder, unspecified; E78.9 Disorder of lipoprotein metabolism, unspecified; E03.8 Other specified hypothyroidism; E55.9 Vitamin D deficiency, unspecified; K21.9 Gastro-esophageal reflux disease without esophagitis; F42.2 Mixed obsessional thoughts and acts; F41.1 Generalized anxiety disorder; F41.0 Panic disorder [episodic paroxysmal anxiety]; D50.9 Iron deficiency anemia, unspecified; Z79.899 Other long term (current) drug therapy; Z13.31 Encounter for screening for depression
CPT/HCPCS: 36415; 80053; 82728; 85025; 96127; 99212

== ENCOUNTER 2025-04-12 08:09 | Outpatient (AMB) | payer MEDICARE, SELFPAY ==
--- OUTSIDE RECORDS SUMMARY | 2025-04-12 08:13 | XMS_ITS | Patient Health Record ---
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 the day before the procedure for 1 day 01/30/2020 Active Aspir-81 ONCE A DAY Active Pravastatin Sodium 10 MG 1 tablet Orally Once a day Active Levothyroxine Sodium 125 MCG 1 tablet on an empty stomach in the morning Orally Once a day Active Immunizations Vaccine Route Administration Date Status Comme nts Influenza Unknown 07/03/2019 Administered Social History Tobacco Use: Social History Observation Description Date Details (start date - stop date) Former Smoker NA - NA Tobacco Use/Smoking Question Answer Notes Patient is a former smoker When did you stop smoking? 2014 Alcohol Screen Question Answer Notes Did you have a drink containing alcohol in the p ast year? No Points 0 Interpretation Negative Problems Problem Type SNOMED Code ICD Code Onset Dates Problem Status W/U Status Risk Notes Problem 644544179 Colon cancer screening (Z12.11) Active confirmed Problem 21351419 Constipation, unspecified constipation type (K59.00) Active confirmed Plan Of Treatment Future Test Test Name Order Date COLONOSCOPY 06/19/2014 COLONOSCOPY 01/30/2020 Insurance Providers Payer Name Payer Address Payer Phone Subscriber Number Group Number Insured Name Patient Relationship to Insured Coverage Start Date Coverage End Date MEDICARE OF [place] [address] [place] [address] [phone] [id number] FRANCO BORGES Self - patient is the insured MEDEX ATTN CLAIMS [address] [place] [address] [phone] [id number] FRANCO BORGES Self - patient is the insured Medical (General) History Medical History History ICD Code colonoscopy 09/18/14, five-year followup , history of tubular adenomas. hypothyroidism panic/anxiety gerd lymphoma w/chemo dx : 2015 Surgical History Surgery Date(Month/Year) portal put in /portal out 2017 knee surgery right ligaments 11/2018
[2025-04-12 08:21] VITALS: BP 126/72; PULSE 72; RESP 16; TEMP 36.9; O2SAT 96; BMI 25.9
--- NOTE | 2025-04-12 08:21 | A.OFFVIS_ITS ---
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: No Accompanied by: Self / Same As Patient Allergies fluoxetine Adverse Reaction (Severe, Verified 04/12/25 08:22) Agitated ancef Adverse Reaction (Uncoded 01/08/25 08:25) Anxiety Medication List - Last Reconciled 04/12/25 by Terra Becerra MD aspirin (Adult Aspirin Regimen) 81 mg PO DAILY cholecalciferol (vitamin D3) 25 mcg PO DAILY levothyroxine 112 mcg PO DAILY lorazepam 1 mg PO Q8H 90 days omeprazole 20 mg PO DAILY rosuvastatin 20 mg PO DAILY sertraline 25 mg PO DAILY Do you need a note to return to daycare/school/sports/work: No HPI [facility] G0439 HPI Details History - The patient is an 79-year-old female p resenting with a Medicare wellness visit and a review of her health status concerning specific prior medical issues. She has a history of anxiety, OCD, difficulty sleeping, hypothyroidism, GERD, lipid disorder, osteoarthritis bilateral hip - The patient reports having impaired vi seth following an incident possibly involving a stroke in August of last year. A CT scan of the head and neck was performed, revealing no hemodynamically significant stenosis, and mild atherosclerotic disease was noted without significant stenosis. The patient mentions that the vision issue has not been associated with any weakness. - The patient has been avoiding driving independently due to anxiety related to the incident with her eyes and has relied on family and friends for transportation. She aims to regain independence in driving. - The patient was diagnosed as anemic po st-operatively, with hemoglobin levels n oted to be 8.9 g/dL after surgery in November. - The patient reports successful weight management and stabilization of blood pressure. Surgical History: - Bilateral hip replacements Medications: - Levothyroxine 112 mcg daily for hypoth yroidism - Omeprazole 20 mg daily for gastroesoph ageal reflux disease - Rosuvastatin 20 mg daily for hyperlipi demia - Sertraline (Zoloft) 25 mg for anxiety/ depression - Lorazepam as needed for anxiety (typic ally twice daily, sometimes three times) Social History: - Dependent on family and friends for tr ansportation - Desires to regain independence in driv ing - Has assistance from family and friends for grocery shopping and medication pickup Preventive care: Mammogram will be in July Patient no longer having colonoscopies Problem List - Hyperlipidemia - Anxiety - Hemoglobin deficiency (Anemia) - Low vision in the left eye - Chronic lower back pain - Post-surgical status: hip replacement - hypothyroidism - chronic GERD - panic disorder - OCD Patient Instructions - Prescription refills have been managed ; ensure compliance with rosuvastatin and sertraline. - we will be doing CBC and lipid panel a s discussed. - Incorporate iron-rich foods, like live r, into diet instead of iron supplements due to constipation concerns. - Be cautious while driving due to visio n impairment on the left side. - follow-up in August Review of Systems - General: No fever no chills - Neurological: No headaches no dizziness - Ear nose throat: No sore throat no hearing difficulty no ear pain - Cardiovascular: No syncope, no chest pain, no palpitations - Gastrointestinal: No nausea vomiting or diarrhea - Endocrine: No polyuria polydipsia no heat intolerance - Genitourinary: No dysuria , no blood in urine Physical Exam General: No acute distress HEENT: No acute findings Neck: Supple Respiratory system: Able to talk in full sentences, no audible wheeze Cardiovascular: S1-S2 regular in rate and rhythm Gastrointestinal: No pain Extremities: No new findings 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 Vital signs reviewed Alcohol tobacco drug use reviewed and discussed . MMSE completed . ? Fall risk: ?Assessed Fall history: ?None Have you had any falls with injury in the past year?? No Have you had 2 or more falls in the past year?? No Fall risk assessment completed Home safety discussed with the patient Functional ability assessed and discussed and documented Activities of daily living reviewed and appropriate actions taken . HRA filled out by the patient and reviewed by provider and scanned . Appropriate written screening schedule established . Any health advise needed provided . Advance care planning discussed with the patient , necessary paperwork filled Examination IPPE/AWE: Balance intact Romberg pass Tandem walk FAILED walk-in turn pass rise from sit to stand pass . ?Hearing ?whisper test failed . Medication list reviewed, patient is stable on medications All other providers patient is seeing discussed and noted . [facility] Medical History History of lymphoma Abnormal colonoscopy Follicular lymphoma Anxiety and depression Hypercholesteremia Hx of Kuldeep thyroiditis Surgical History Hx of right knee surgery History of right hip replacement No pertinent past surgical history Family History Paternal Aunt Breast cancer Social History Housing: House Alcohol intake: never Patient Tobacco Use Status: Former Tobacco user Tobacco use type: Cigarette Years Smoked: 25 years e-Cigarette/Vaping Use: Never Used Advance Directives Date on File: 06/21/24 service: No Current occupational status: retired Current occupation: Right hand dominate Cognitive needs: No Hearing needs: No Vision needs: Yes Questionnaire Medicare Wellness Checkup What is your age?: 78 or older What gender do you identify with?: female During the past 4 weeks, how much have you been bothered by emotional problems such as feeling anxious, depressed, irritable, sad or downhearted, and blue?: quite a bit During the past 4 weeks, has your physical & emotional health limited your social activities with family, friends, neighbors, or groups?: slightly During the past 4 weeks, how much bodily pain have you generally had?: moderate pain During the past 4 weeks, was someone available to help you if you needed & wanted help?: yes, as much as I wanted During the past 4 weeks, what was the hardest physical activity you could do for at least 2 minutes?: heavy Can you get to places out of walking distance without help? (For eg., can you travel alone on buses, taxis or drive your car?): Yes Can you go shopping for groceries or clothes without someone's help?: Yes Can you prepare your own meals?: Yes Can you do your housework without help?: Yes Because of any health problems, do you need the help of another person with your personal care needs such as eating, bathing, dressing or getting around the house?: No Can you handle your own money without help?: Yes During the past 4 weeks, how would you rate your health in general?: good During the past 4 weeks how have things been going for you?: pretty well Do you always fasten your seat belt when you are in a car?: yes, usually During past 4 weeks, have you been bothered by the following: never: Falling or dizzy when standing up, Sexual problems?, Trouble eating well?, Teeth or denture problems? and Problems using the telephone? and sometimes: Tiredness or fatigue? Have you fallen 2 or more times in the past year?: No Are you afraid of falling?: No Are you a smoker?: no During the past 4 weeks, how many drinks of wine, beer, or other alcoholic beverages did you have?: no alcohol at all Do you exercise for about 20 minutes 3 or more times a week?: yes, some of the time How often do you have trouble taking medicines the way you have been told to take them?: I always take medicine as prescribed How confident are you that you can control & manage most of your health problems?: very confident What is your race?: White Mini Mental State Exam (MMSE) Orientation What is the (year) (season) (date) (day) (month)?: year, season, date, day and month Where are we (state) (county) (town or city) (hospital) (floor)?: state, county, town or city, hospital/clinic and floor Score Score: 10 Activity of Daily Living Bathing - sponge bath, tub bath or shower: receives no assistance (gets in/out by self, if usual bathing means Dressing - getting clothes from closets & drawers, including inner/outer garments & fasteners.: gets clothes & gets completely dressed without help Toileting - going to the 'toilet room' for urine/bowel elimination & cleaning self/arranging clothes: goes to toilet room, cleans self, arranges clothes without help Transfer: moves in & out of bed and chair without help (may use support object) Continence: controls urination/bowel movements completely by self Feeding: feeds self without help Total Score: 0 Information obtained from: patient Using telephone: independent Traveling: needs assistance Shopping: independent Preparing meals: independent Housework: independent Taking medicine: independent Managing money: independent PHQ-9 Over the last 2 weeks, how often have you been bothered by any of the following problems? 1. Little interest or pleasure in doing things: more than half the days 2. Feeling down, depressed, or hopeless: not at all 3. Trouble falling or staying asleep, or sleeping too much: several days 4. Feeling tired or having little energy: not at all 5. Poor appetite or overeating: not at all 6. Feeling bad about yourself - or that you are a failure or have let yourself or your family down: not at all 7. Trouble concentrating on things, such as reading the newspaper or watching television: not at all 8. Moving or speaking so slowly that other people could have noticed. Or the opposite - being so fidgety or restless that you have been moving around a lot more than usual: not at all 9. Thoughts that you would be better off or of hurting yourself in some way: not at all Total score: 3 Depression Screening Interpretation: Negative Depression Screening Done: Yes 15725 - PHQ-9 Billing: Yes Source: Developed by Drs. Derick Blood, Denice Murillo, Heber Patino and colleagues, with an educational jeffrey from [employer]. Physical Exam Vital Signs: Last Vital Signs Temp 98.5 F 04/12/25 08:21 Pulse 72 04/12/25 08:21 Resp 16 04/12/25 08:21 BP 126/72 04/12/25 08:21 Pulse Ox 96 04/12/25 08:21 Oxygen Delivery Method Room Air 04/12/25 08:21 BMI result Body Mass Index 25.9 Assessment & Plan Assessment & Plan (1) Medicare annual wellness visit, subsequent: Code(s): Z00.00 - Encounter for general adult medical examination without abnormal findings (2) Difficulty sleeping: Code(s): G47.9 - Sleep disorder, unspecified (3) Lipid disorder: Code(s): E78.9 - Disorder of lipoprotein metabolism, unspecified (4) Other specified hypothyroidism: Code(s): E03.8 - Other specified hypothyroidism (5) Vitamin D deficiency: Code(s): E55.9 - Vitamin D deficiency, unspecified (6) Chronic GERD: Code(s): K21.9 - Gastro-esophageal reflux disease without esophagitis (7) Obsessive compulsive disorder: Code(s): F42.9 - Obsessive-compulsive disorder, unspecified Qualifiers: Obsessive-compulsive disorder type: mixed obsessional thoughts and acts Qualified Code(s): F42.2 - Mixed obsessional thoughts and acts (8) Anxiety, generalized: Comment: Patient is aware of side effects like , this medication has a risk of being habit forming, slowing of relfexes, dizziness, and its controlled in nature, will need 3 M visit Code(s): F41.1 - Generalized anxiety disorder (9) Panic disorder: Code(s): F41.0 - Panic disorder [episodic paroxysmal anxiety] (10) Microcytic anemia: Code(s): D50.9 - Iron deficiency anemia, unspecified Plan History - The patient is an 79-year-old female presenting with a Medicare wellness visit and a review of her health status concerning specific prior medical issues. She has a history of anxiety, OCD, difficulty sleeping, hypothyroidism, GERD, lipid disorder, osteoarthritis bilateral hip - The patient reports having impaired vision following an incident possibly involving a stroke in August of last year. A CT scan of the head and neck was performed, revealing no hemodynamically significant stenosis, and mild atherosclerotic disease was noted without significant stenosis. The patient mentions that the vision issue has not been associated with any weakness. - The patient has been avoiding driving independently due to anxiety related to the incident with her eyes and has relied on family and friends for transpor tation. She aims to regain independence in driving. - The patient was diagnosed as anemic post-operatively, with hemoglobin levels noted to be 8.9 g/dL after surgery in November. - The patient reports successful weight management and stabilization of blood pressure. Surgical History: - Bilateral hip replacements Medications: - Levothyroxine 112 mcg daily for hypothyroidism - Omeprazole 20 mg daily for gastroesophageal reflux disease - Rosuvastatin 20 mg daily for hyperlipidemia - Sertraline (Zoloft) 25 mg for anxiety/depression - Lorazepam as needed for anxiety (typically twice daily, sometimes three times) Social History: - Dependent on family and friends for transportation - Desires to regain independence in driving - Has assistance from family and friends for grocery shopping and medication pickup Preventive care: Mammogram will be in July Patient no longer having colonoscopies Problem List - Hyperlipidemia - Anxiety - Hemoglobin deficiency (Anemia) - Low vision in the left eye - Chronic lower back pain - Post-surgical status: hip replacement - hypothyroidism - chronic GERD - panic disorder - OCD Patient Instructions - Prescription refills have been managed; ensure compliance with rosuvastatin and sertraline. - we will be doing CBC and lipid panel as discussed. - Incorporate iron-rich foods, like liver, into diet instead of iron supplements due to constipation concerns. - Be cautious while driving due to vision impairment on the left side. - follow-up in August Orders: Orders 2 Ferritin Today D50.9 - Iron deficiency anemia, unspecified, E03.8 - Other specified hypothyroidism, E55.9 - Vitamin D deficiency, unspecified, E78.9 - Disorder of lipoprotein metabolism, unspecified, F41.0 - Panic disorder [episodic paroxysmal anxiety], F41.1 - Generalized anxiety disorder, F42.2 - Mixed obsessional thoughts and acts, G47.9 - Sleep disorder, unspecified, K21.9 - Gastro-esophageal reflux disease without esophagitis Complete Blood Count Auto Diff Today D50.9 - Iron deficiency anemia, unspecified, E03.8 - Other specified hypothyroidism, E55.9 - Vitamin D deficiency, unspecified, E78.9 - Disorder of lipoprotein metabolism, unspecified, F41.0 - Panic disorder [episodic paroxysmal anxiety], F41.1 - Generalized anxiety disorder, F42.2 - Mixed obsessional thoughts and acts, G47.9 - Sleep disorder, unspecified, K21.9 - Gastro-esophageal reflux disease without esophagitis Comprehensive Met. Panel Today D50.9 - Iron deficiency anemia, unspecified, E03.8 - Other specified hypothyroidism, E55.9 - Vitamin D deficiency, unspecified, E78.9 - Disorder of lipoprotein metabolism, unspecified, F41.0 - Pa bulmaro disorder [episodic paroxysmal anxiety], F41.1 - Generalized anxiety disorder, F42.2 - Mixed obsessional thoughts and acts, G47.9 - Sleep disorder, unspecified, K21.9 - Gastro-esophageal reflux disease without esophagitis Medications: Refilled omeprazole Take it at night on empty stomach 20 mg PO DAILY 90 caps 0RF lorazepam 1 mg PO Q8H 270 tabs 0RF 90 days Quality Reporting (2019) Depression/Bipolar (159/160/161/177) PHQ-9: Total score: 3 Coding Level of Care Code Medicare Subsequent (G0439) Est Pt Level 3 (85346) Diagnoses Medicare annual wellness visit, subsequent Z00.00 Difficulty sleeping G47.9 Lipid disorder E78.9 Other specified hypothyroidism E03.8 Vitamin D deficiency E55.9 Chronic GERD K21.9 Mixed obsessional thoughts and acts F42.2 Obsessive-compulsive disorder type: mixed obsessional thoughts and acts Anxiety, generalized F41.1 Panic disorder F41.0 Microcytic anemia D50.9 CPT Codes Advance Care Planning - Time spent: 1-15 minutes, on File ([id number]) Additional Codes PHQ-9 - 85248 - PHQ-9 Billing: Yes ([id number]) Advance Care Planning Advance Care Planning discussion: Completed/Scanned Forms completed: Health Care Proxy and MOLST Time spent: 1-15 minutes, on File
== END 2025-04-12 09:01 | disposition home or self-care (01) ==
LOC: HO.HMCC 08:10
PROVIDERS: PCP Internal Medicine; Visit Provider Internal Medicine
DX: Z00.00 Encounter for general adult medical examination without abnormal findings (principal); G47.9 Sleep disorder, unspecified; E55.9 Vitamin D deficiency, unspecified; F41.0 Panic disorder [episodic paroxysmal anxiety]; E78.9 Disorder of lipoprotein metabolism, unspecified; E03.8 Other specified hypothyroidism; D50.9 Iron deficiency anemia, unspecified; K21.9 Gastro-esophageal reflux disease without esophagitis; F42.2 Mixed obsessional thoughts and acts; F41.1 Generalized anxiety disorder

== ENCOUNTER 2025-08-14 11:49 | Outpatient (REF) | payer MEDICARE, SELFPAY ==
--- OUTSIDE RECORDS SUMMARY | 2025-08-14 14:42 | XMS_ITS | Patient Health Record ---
Author Organization [facility] Address [address] [place] [id number] Care Team Providers Care Sports Bookmaker Name Role Phone Evy Llamas MD Primary [...] at 5:00 p.m. the day before the procedure; Duration: 1 day 01/30/2020 Active Aspir-81 ONCE A [...] Problem Status W/U Status Risk Notes Problem Colon cancer screening (112001932) Colon cancer screening (Z12.11) Active confirmed Problem Constipation (35813305) Constipation, unspecified constipation type (K59.00) Active confirmed Plan Of Treatment Future Test Test Name Order Date COLONOSCOPY 06/19/2014 COLONOSCOPY 01/30/2020 Insurance Providers Payer Name Payer Address Payer Phone Subscriber Number Group Number Insured Name Patient Relationship to Insured Coverage Start Date Coverage End Date MEDICARE OF [place] [address] [place] [id number] DARLEENROHIT PARRISHITH Self - patient is the insured [employer] ATT[employer] CLAIMS [address] [place] [phone] [id number] DARLEENFRANCOIS FRANCO Self - patient is the insured Medical (General) History Medical History History ICD Code colonoscopy 09/18/14, five-year followup , history of tubular adenomas. hypothyroidism panic/anxiety gerd lymphoma w/chemo dx : 2015 Surgical History Surgery Date(Month/Year) portal put in /portal out 2017 knee surgery right ligaments 11/2018
== END 2025-08-14 11:50 | disposition home or self-care (01) ==
LOC: HO.MAMMO 11:49
PROVIDERS: PCP Internal Medicine; Visit Provider Internal Medicine
DX: Z12.31 Encounter for screening mammogram for malignant neoplasm of breast (principal)
CPT/HCPCS: 77063; 77067

== ENCOUNTER → 2025-08-14 12:15 | Outpatient (BNV) | payer MEDICARE, SELFPAY | PROVIDERS: PCP Internal Medicine; Visit Provider Radiology Body Imaging | DX: Z12.31 Encounter for screening mammogram for malignant neoplasm of breast (principal) | CPT/HCPCS: 77063; 77067 ==

== ENCOUNTER 2025-08-16 08:47 | Outpatient (REF) | payer MEDICARE, SELFPAY ==
[2025-08-16 13:12] LABS: MANUAL DIFF FLAG NO
[2025-08-16 13:26] LABS: Hematocrit 32.5 % (37.0-47.0); Hemoglobin 10.7 g/dl (12.0-16.0); Imm Gran Abs Auto 0.01 X10*3/uL (0.00-0.03); Imm Gran Pct Auto 0.2 % (0.0-0.4); Lymphocytes Absolute Auto 1.3 X10*3/uL (1.2-4.9); Mean Corpuscular HGB Conc 32.9 g/dl (31.0-35.0); Mean Corpuscular Hemoglobin 31.2 pg (27.0-33.0); Mean Corpuscular Volume 94.8 fL (80.0-98.0); NRBC Abs Auto 0.000 X10*3/uL (0.0-0.012); NRBC Pct Auto 0.0 /100WBC (0.0-0.2); Platelet Count 257 X10*3/uL (160-400); Red Blood Count 3.43 X10*6/uL (4.20-5.50); White Blood Count 4.5 X10*3/uL (4.8-10.8)
[2025-08-16 13:43] LABS: Alanine Aminotransferase 25 U/L (0-31); Albumin Level 4.3 g/dL (3.5-5.0); Alkaline Phosphatase 54 U/L (39-117); Anion Gap 13 (12-20); Aspartate Amino Transferase 32 U/L (5-31); Blood Urea Nitrogen 14 mg/dL (9-16); Calcium 9.2 mg/dL (8.4-10.2); Carbon Dioxide 26 mmol/L (22-29); Chloride 106 mmol/L (96-108); Estimated Glomerular Filt Rate > 60; Potassium 4.4 mmol/L (3.3-5.1); Sodium 141 mmol/L (135-145); Total Protein 6.5 g/dL (6.5-8.0)
[2025-08-16 14:04] LABS: Ferritin 40 ng/mL (10-250)
[2025-08-16 14:30] LABS: Vitamin B12 552 pg/mL (200-900)
[2025-08-16 15:03] LABS: Free T4 (Free Thyroxine) 0.97 ng/dL (0.71-1.85)
[2025-08-22 06:59] LABS: Vitamin D 25-OH, D2 <4 ng/mL; Vitamin D 25-OH, D3 45 ng/mL; Vitamin D 25-OH, Total 45 ng/mL (30-100)
== END 2025-08-16 08:48 | disposition home or self-care (01) ==
LOC: HO.HMGCLDS 08:47
PROVIDERS: PCP Internal Medicine; Visit Provider Internal Medicine
DX: F42.2 Mixed obsessional thoughts and acts (principal); F41.1 Generalized anxiety disorder; F41.0 Panic disorder [episodic paroxysmal anxiety]; R03.0 Elevated blood-pressure reading, without diagnosis of hypertension; F41.9 Anxiety disorder, unspecified; G47.00 Insomnia, unspecified; K59.09 Other constipation; L03.031 Cellulitis of right toe; G47.9 Sleep disorder, unspecified; E03.8 Other specified hypothyroidism; E78.9 Disorder of lipoprotein metabolism, unspecified; K21.9 Gastro-esophageal reflux disease without esophagitis; E55.9 Vitamin D deficiency, unspecified; C82.81 Other types of follicular lymphoma, lymph nodes of head, face, and neck
CPT/HCPCS: 36415; 80053; 82306; 82607; 82728; 83721; 84439; 84443; 85025; 96127; 99212

== ENCOUNTER 2025-08-16 08:47 | Outpatient (AMB) | payer MEDICARE, SELFPAY ==
[2025-08-16 08:49] VITALS: BP 150/88; PULSE 73; RESP 16; O2SAT 98; BMI 25.5
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
--- OUTSIDE RECORDS SUMMARY | 2025-08-16 09:07 | XMS_ITS | Patient Health Record ---
Author Organization [facility] Address [address] [place] [id number] Care Team Providers Care Residential Care Facility Manager Name Role Phone Evy Llamas MD Primary [...] Status Risk Notes Problem Colon cancer screening (039233859) Colon cancer screening (Z12.11) Active confirmed Problem Constipation (63066799) Constipation, unspecified constipation type (K59.00) Active confirmed Plan Of Treatment Future Test Test Name Order Date COLONOSCOPY 06/19/2014 COLONOSCOPY 01/30/2020 Insurance Providers Payer Name Payer Address Payer Phone Subscriber Number Group Number Insured Name Patient Relationship to Insured Coverage Start Date Coverage End Date MEDICARE OF [place] [address] [place] [address] [id number] DARLEENROHIT PARRISHITH Self - patient is the insured [employer] CLAIMS [address] [place] [phone] [id number] DARLEENFRANCOIS FRANCO Self - patient is the insured Medical (General) History Medical History History ICD Code colonoscopy 09/18/14, five-year followup , history of tubular adenomas. hypothyroidism panic/anxiety gerd lymphoma w/chemo dx : 2015 Surgical History Surgery Date(Month/Year) portal put in /portal out 2017 knee surgery right ligaments 11/2018
== END 2025-08-16 11:00 | disposition home or self-care (01) ==
LOC: HO.HMCC 08:48
PROVIDERS: PCP Internal Medicine; Visit Provider Internal Medicine
DX: F41.1 Generalized anxiety disorder (principal); F42.2 Mixed obsessional thoughts and acts; C82.81 Other types of follicular lymphoma, lymph nodes of head, face, and neck; G47.9 Sleep disorder, unspecified; E03.8 Other specified hypothyroidism; F41.0 Panic disorder [episodic paroxysmal anxiety]; E78.9 Disorder of lipoprotein metabolism, unspecified; K21.9 Gastro-esophageal reflux disease without esophagitis; E55.9 Vitamin D deficiency, unspecified

== ENCOUNTER 2025-08-22 08:24 | Outpatient (AMB) | payer MEDICARE, SELFPAY ==
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
== END 2025-08-22 13:53 | disposition home or self-care (01) ==
LOC: HO.HMCC 08:26
PROVIDERS: PCP Internal Medicine; Visit Provider Internal Medicine
DX: D50.9 Iron deficiency anemia, unspecified (principal); R79.89 Other specified abnormal findings of blood chemistry; K59.09 Other constipation

== ENCOUNTER 2025-08-23 06:56 | Outpatient (REF) | payer MEDICARE, SELFPAY ==
--- OUTSIDE RECORDS SUMMARY | 2025-08-23 06:59 | XMS_ITS | Patient Health Record ---
Author Organization [facility] Address [address] [place] [id number] Care Team Providers Care Marketing Rotation Associate Name Role Phone Evy Llamas MD Primary Care Provider Dipak Feldman Jr Unavailable Allergies Allergen (clinical drug ingredient) Drug/Non Drug Allergy documented on EMR Reaction Allergy Type Onset Date Status cefazolin ANCEF (uncoded) Unknown Allergy Acti ve Reason For Referral No Information Medications Medication SIG (Take, Route, Frequency, Duration) Notes Start Date End Date Status Citalopram Hydrobromide 20 MG Tablet 1 tablet Orally Once a day Active MiraLax (colon prep) 8.3 ounce ((238) grams mixed with Gatorade or Crystal Light orally begin at 5:00 p.m. the day before the procedure; Duration: 1 day 01/30/2020 Active Aspir-81 ONCE A DAY Active Pravastatin Sodium 10 MG Tablet 1 tablet Orally Once a day Active Levothyroxine Sodium 125 MCG Tablet 1 tablet on an empty stomach in the morning Orally Once a day Active Immunizations Vaccine Route Administration Date Status Comme nts Influenza Unknown 07/03/2019 Administered Social History Tobacco Use: Social History Observation Description Date Details (start date - stop date) Former Smoker NA - NA Social History Drugs/Alcohol: Social Info Question Answer Notes Alcohol Screen Did you have a drink containing alcohol in the past year? No Points 0 Interpretation Negative Tobacco Use: Social Info Question Answer Notes Tobacco Use/Smoking Patient is a former smoker When did you stop smoking? 2014 Additional Details Category Social Info Options Details Miscellaneous: Marital status: Occupation: retired Problems Problem Type SNOMED Code ICD Code Onset Dates Problem Status W/U Status Risk Notes Problem Colon cancer screening (013803215) Colon cancer screening (Z12.11) Active confirmed Problem Constipation (74235374) Constipation, unspecified constipation type (K59.00) Active confirmed Plan Of Treatment Future Test Test Name Order Date COLONOSCOPY 06/19/2014 COLONOSCOPY 01/30/2020 Insurance Providers Payer Name Payer Address Payer Phone Subscriber Number Group Number Insured Name Patient Relationship to Insured Coverage Start Date Coverage End Date MEDICARE OF [place] [address] [place] [address] [id number] FRANCO BORGES Self - patient is the insured [employer] ATT[employer] CLAIMS [address] [place] [address] [id number] FRANCO BORGES Self - patient is the insured Medical (General) History Medical History History ICD Code colonoscopy 09/18/14, five-year followup , history of tubular adenomas. hypothyroidism panic/anxiety gerd lymphoma w/chemo dx : 2015 Surgical History Surgery Date(Month/Year) portal put in /portal out 2017 knee surgery right ligaments 11/2018
[2025-08-23 11:04] LABS: Ferritin 46 ng/mL (10-250)
== END 2025-08-23 06:57 | disposition home or self-care (01) ==
LOC: HO.HMGCLDS 06:56
PROVIDERS: PCP Internal Medicine; Visit Provider Internal Medicine
DX: R79.89 Other specified abnormal findings of blood chemistry (principal); D50.9 Iron deficiency anemia, unspecified
CPT/HCPCS: 36415; 82728; 84443